=== PATIENT | female | born 1965 | race Caucasian/White ===

== ENCOUNTER 2016-11-28 11:31 | Emergency (ER) | payer OTHER ==
[2016-11-28] MEDS ORDERED: Albuterol/Ipratropium NEB.SOL* Albuterol 2.5 MG/Ipratropium 0.5 MG 3 ML INH ONE ×2 (12:03→13:06)
--- NOTE | 2016-11-28 12:59 | RAD ---
INDICATION: 3 days of severe shortness of breath and cough COMPARISON: Most recent comparison chest x-rays dated September 05, 2016 TECHNIQUE: PA and lateral views of the chest were obtained. FINDINGS: The heart and mediastinum are normal in size and contour. The lungs are grossly clear. There is no evidence of large pleural effusion. Visualized bones are normal for the patient's age. There is no radiographic evidence of free air beneath the diaphragm IMPRESSION: No radiographic evidence of acute cardiopulmonary disease.
[2016-11-28] MEDS ORDERED: methylPREDNISolone 125 MG* 2 ML VIAL IM ONE (13:07)
--- NOTE | 2016-11-28 14:10 | UC ---
Jayshree Pablo Salem, scribed for Gabriella Lopez MD on 11/28/16 at 1206 . Respiratory Complaint HPI - HPI Summary HPI Summary: Patient is a 51 y/o F who presents to the with a cough (nonproductive) and SOB since the past couple of days. Her reports wheezing and vomiting, but denies fever. She states she has been using a nebulizer (3 times yesterday, last one more than 12 hours ago) and cough medication at home with little to no alleviation. She reports she had bronchitis two years ago and has a chronic cough, but the cough is not typically this bad. Pt states that she had asthma as a child. Pt is also a heavy smoker, with approximately 25 pack year history. states that pt is mildly active at home, but it's limited by her fibromyalgia. Patients medication reviewed this visit. - History of Current Complaint Chief Complaint: UCRespiratory Stated Complaint: COUGH, SINUS, TROUBLE BREATHING Hx Obtained From: Patient, Family/Lending Manager - . Hx Last Menstrual Period: "NEVER HAD ONE" Onset/Duration: Gradual Onset, Lasting Days, Still Present Timing: Intermittent Episodes Severity Initially: Moderate Severity Currently: Moderate Character: Cough: Nonproductive Aggravating Factors: Recumbent Position Alleviating Factors: OTC Meds - Cough med and nebulizer., Upright Position Associated Signs And Symptoms: Positive: Dyspnea, Wheezing - Allergies/Home Medications Allergies/Adverse Reactions: Allergies Allergy/AdvReac Type Severity Reaction Status Date / Time Lamotrigine [From Lamictal] Allergy Intermediate Rash Verified 01/02/16 18:49 PMH/Surg Hx/FS Hx/Imm Hx - Additional Past Medical History Additional PMH: fibromyalgia Endocrine History: Diabetes Respiratory History: Bronchitis Other History Of: Negative For: Anticoagulant Therapy - Surgical History Surgical History: Yes Surgery Procedure, Year, and Place: RIGHT KNEE SURGERY, TOTAL RIGHT KNEE SURGERY 2009 W/ REVISION IN 2011,CYST REMOVED FROM RT WRIST, RT BREAST BIOPSY. TUBES IN EARS 2014 - Family History Known Family History: Positive: Diabetes, Respiratory Disease - Social History Occupation: Disabled Lives: With Family Alcohol Use: Rare Substance Use Type: None Smoking Status (MU): Heavy Every Day Tobacco Smoker Type: Cigarettes Amount Used/How Often: 3/4 PPD Length of Time of Smoking/Using Tobacco: 20+ years Household Exposure Type: Cigarettes - Immunization History Most Recent Influenza Vaccination: n/a Most Recent Tetanus Shot: >10 yrs Review of Systems Constitutional: Other - feels unwell, sweating although no fever. Respiratory: Shortness Of Breath, Cough - Nonproductive., Other - Wheezing. Gastrointestinal: Vomiting Musculoskeletal: Other: - Fibromyalgia. Has chronic pain in knees. All Other Systems Reviewed And Are Negative: Yes Physical Exam Triage Information Reviewed: Yes Appearance: Ill-Appearing Vital Signs: Initial Vital Signs Temp 98.6 F 11/28/16 11:40 Pulse 111 11/28/16 11:40 Resp 20 11/28/16 11:40 BP 157/93 11/28/16 11:40 Pulse Ox 96 11/28/16 11:40 Elevated BP noted. Vital Signs Reviewed: Yes Eyes: Positive: Conjunctiva Inflamed - mild injection ENT: Positive: Pharynx normal, TMs normal Neck: Positive: Supple, Nontender, No Lymphadenopathy Respiratory: Positive: Decreased breath sounds - to both bases, Wheezing - prolonged expiratory phase with wheeze. Cardiovascular: Positive: RRR, No Murmur Abdomen Description: Positive: Nontender, Soft Neurological: Positive: Alert, Muscle Tone Normal Skin Exam: Other - flushed, sweating. UC Diagnostic Evaluation - Laboratory O2 Sat by Pulse Oximetry: 96 - Radiology Radiology Interpretation Completed By: Radiologist - CXR IMPRESSION: No radiographic evidence of acute cardiopulmonary disease. - EKG Cardiac Rate: NL - NSR @ [address] changes in lateral leads, no acute changes. Re-Evaluation - Re-Evaluation First Eval Re-Evaluation Time: 13:01 Comment: Informed pt of nml CXR. Still prolonged expiration and wheezing. Will give pt a second DuoNeb. Second Eval Re-Evaluation Time: 13:50 Third Eval Re-Evaluation Time: 14:05 Change: Improved Comment: Improved air entry and less wheezing. Pt will be DCd. Respiratory Course/Dx - Course Course Of Treatment: steroids and bronchodilators for acute bronchospasm. - Differential Dx/Diagnosis Differential Diagnosis/HQI/PQRI: Asthma, Bronchitis, Exacerbation Of COPD, Lower Resp Infection Provider Diagnoses: bronchospasm, possible chronic obstructive lung disease. Discharge - Discharge Plan Condition: Stable Disposition: HOME Prescriptions: Albuterol/Ipratropium NEB.WENDIE* [Duoneb (Albuterol 2.5 MG/Ipratropium 0.5 MG)] 1 neb INH Q4H PRN #60 neb.soln PRN Reason: Wheezing Benzonatate CAP* [Tessalon 100 MG CAP*] 100 mg PO TID PRN #30 cap PRN Reason: Cough predniSONE TAB* [Deltasone TAB*] 6 tab PO DAILY #43 tab Patient Education Materials: How to Use a Nebulizer (ED), Bronchospasm (ED) Forms: *Work Release Referrals: Quoc Kellogg MD [Primary Care Provider] - Additional Instructions: Your blood pressure was elevated today (157/93). Please, follow up with your primary care provider within the next few weeks. It is likely a viral illness that is causing your wheezing. You have had a steroid injection here. TOMORROW morning, begin taking the oral prednisone with food, tapering over 2 weeks. Do not stop this medication abruptly. The tessalon perles will suppress the cough. Use the nebulizer as needed to relieve the wheezing in your lungs, but use it at least 2 more times today, and 4 times tomorrow. If you are feeling better on Friday, you can decrease the use. It could cause some stomach upset, so it is helpful to take it with food. It is important that you stop smoking, and follow up with Dr. Kellogg next Friday or Friday to arrange further assessment of your lungs. The documentation as recorded by the Jayshree dhaliwal Salem accurately reflects the service I personally performed and the decisions made by me, Gabriella Lopez MD.
[2016-11-28 14:11] VITALS: BP 159/95
== END 2016-11-28 14:20 | disposition home or self-care (01) ==
LOC: UCEAST 11:31
DX: J98.01 Acute bronchospasm (principal); Z72.0 Tobacco use; M79.7 Fibromyalgia; E11.9 Type 2 diabetes mellitus without complications; R06.2 Wheezing; Z87.09 Personal history of other diseases of the respiratory system; R06.02 Shortness of breath
CPT/HCPCS: 71020; 93005; 96372; 99213; A9270-GY; G0463; J2930

== ENCOUNTER 2017-07-08 20:37 | Emergency (ER) | payer OTHER ==
--- OUTSIDE RECORDS SUMMARY | 2017-07-08 20:44 | XMS REPORT ---
:1965 External Reference #:[id number] Author Organization [employer] Address [address] [place] [address] Phone [phone] Care Team Providers Name Role Phone Quoc Kellogg MD Care Team Information Accounting Clerks Supervisor Unavailable Quoc Kellogg MD Primary Care Physician Unavailable Payers Type Date Identification Numbers Payment Provider Subscriber Commercial Policy Number: [id number] Niki Krishnamurthy [address] [place] [address] Problems Description No Information Family History Date Family Member(s) Problem(s) Comments Father Esophagus Cancer Father Bladder Cancer Father Prostate Cancer Father Hearing Loss Father Diabetes Mother Cancer, Head And Neck Mother Diabetes Mother Hypertension Mother Heart Disease Social History Type Date Description Comments Occupation [employer] Cigarette Use PT Smokes 3/4 Pack Per Day ETOH Use Rare Use Of Alcohol Recreational Drug Use Never Used Drugs Allergies, Adverse Reactions, Alerts Date Description Reaction Status Severity Comments 03/22/2014 Lamictal active Medications Medication Date Status Form Strength Qnty SIG Indications Ordering Provider Ambien / Active Tablets 10mg 3tabs 1 by Unknown 0000 mouth every night at bedtime Cymbalta / Active Caps DR Part 60mg 1 every Unknown 0000 day Hydrocodone / Active Unknown 0000 Ciprodex 04/28/ Hx Suspension 0.3-0.1% 1unit 5 drops Alfonzo 2013 - s right ear Wiliam, 04/16/ twice a M.D. 2017 day Tramadol 04/25/ Hx Tablets 37.5-325mg 10tab 1-2 tabs Gary Mejía/Lenka 2013 - s every 8 Wiliam, cetaminophen 18/ hours as M.D. 2016 needed pain Amoxicillin 04/25/ Hx Tablets 875mg 20tab 1 by Alfonzo 2013 - mouth Wiliam, 04/16/ twice a M.D. 2017 day for 10 days Dexamethasone 03/22/ Hx Tablets 4mg 5tabs one tab Mejía, 2013 - daily for Wiliam, days M.D. 2013 Fluticasone 03/22/ Hx Suspension 50mcg/Act 3unit 2 sprays Mejía, Propionate 2014 - s both Wiliam, 04/16/ nostrils M.D. 2016 every day Vital Signs Date Vital Result Comment 06/17/2017 Weight 160.12 lb Height 65.75 inches 5'5.75" BMI (Body Mass Index) 26.0 kg/m2 BP Systolic 151 mmHg BP Diastolic 92 mmHg Heart Rate 97 /min O2 % BldC Oximetry 84 % Body Temperature 97.9 F Pain Level 0 04/16/2017 Weight 159.00 lb Height 65.75 inches 5'5.75" BMI (Body Mass Index) 25.9 kg/m2 BP Systolic 159 mmHg BP Diastolic 95 mmHg Heart Rate 100 /min O2 % BldC Oximetry 96 % Body Temperature 98.3 F Pain Level 0 04/28/2014 Body Temperature 98.2 F 04/25/2014 Weight 158.00 lb Height 65.75 inches 5'5.75" BMI (Body Mass Index) 25.7 kg/m2 BP Systolic 126 mmHg BP Diastolic 88 mmHg Heart Rate 91 /min O2 % BldC Oximetry 96 % Body Temperature 98.9 F Pain Level 7 04/01/2014 Weight 159.00 lb Height 65.75 inches 5'5.75" BMI (Body Mass Index) 25.9 kg/m2 BP Systolic 140 mmHg BP Diastolic 82 mmHg Heart Rate 77 /min O2 % BldC Oximetry 95 % Body Temperature 98.4 F 03/22/2014 Weight 159.00 lb Height 65.75 inches 5'5.75" BMI (Body Mass Index) 25.9 kg/m2 BP Systolic 134 mmHg BP Diastolic 90 mmHg Heart Rate 70 /min O2 % BldC Oximetry 97 % Body Temperature 98.4 F Results Description No Information Procedures Date CPT Code Description Status 05/06/2017 89670 Tympanostomy, Gen. Anesth. Completed 05/06/2017 30290 Anesthesia, Tympanotomy Completed 04/16/2017 03557 Tympanometry Completed 04/16/2017 10467 Audiometry, Comprehensive Completed 04/21/2014 27900 Tympanostomy, Gen. Anesth. Completed 04/12/2014 43161 Tympanometry Completed 04/12/2014 33506 Audiometry, Comprehensive Completed 03/22/2014 99607 Nasal Endoscopy, Diag. Completed Encounters Type Date Location Provider CPT E/M Dx Office Visit 04/16/2017 9:45a Main Office Wiliam Mejía M.D. 64832 H69.83 Office Visit 04/12/2014 1:00p Main Office Wiliam Mejía M.D. 19166 389.05 381.81 388.70 Office Visit 04/01/2014 3:45p Main Office Wiliam Mejía M.D. 10012 388.70 381.81 383.89 Office Visit 03/22/2014 3:15p Main Office Wiliam Mejía M.D. 94619 388.70 780.4 388.30 381.81 472.0 478.19 Plan of Care No Information Available
[2017-07-08 20:47] VITALS: BP 173/89
--- NOTE | 2017-07-08 20:53 | UC ---
Headache HPI - HPI Summary HPI Summary: Pt presents with headache and nosebleeds. She tells me that about 4 days ago she developed a "bad headache" and "trickling" blood from her nose. These episodes were worse at times throughout the day, but her headache is constant. Since yesterday she tells me her headache has gotten much worse and her nosebleeds are more severe. She does feel generalized weak and dizzy. Denies head trauma, but she did bump her head on her freezer door twice about 3 days ago - after the headaches began. Has been taking her prescribed narcotic pain mediation for the pain, which she says makes the pain worse. She also mentions that about 2 weeks ago she developed a FB sensation in her throat and began having difficulty swallowing. This is getting progressively worse. She denies fever, chills, recent illness, SOB, chest pain, abdominal pain, n/v/d /c, ataxia, or changes in her vision. - History Of Current Complaint Hx Obtained From: Patient Hx Last Menstrual Period: "NEVER HAD ONE" Onset/Duration: Gradual Onset Onset Of Symptoms: Gradual Initially Headache Was: Initial Pain Scale(0-10)= - 5, Moderate Currently Pain Is: Current Pain Scale(0-10)= - 9, Severe Pain Intensity: 9 Pain Scale Used: 0-10 Numeric Timing: Constant Character: Dull, Throbbing, Pressure Location of Headache: Diffuse <Sammy Mitchell - Last Filed: 07/08/17 21:46> <Neena Lemons - Last Filed: 07/09/17 07:14> - History Of Current Complaint Chief Complaint: UCHeadache Stated Complaint: HEADACHE Time Seen by Provider: 07/08/17 20:46 - Allergies/Home Medications Allergies/Adverse Reactions: Allergies Allergy/AdvReac Type Severity Reaction Status Date / Time Lamotrigine [From Lamictal] Allergy Intermediate Rash Verified 07/08/17 20:47 PMH/Surg Hx/FS Hx/Imm Hx Endocrine History: Diabetes, Dyslipidemia Respiratory History: COPD Psychological History: Anxiety Other History Of: Negative For: Anticoagulant Therapy - Surgical History Surgical History: Yes Surgery Procedure, Year, and Place: RIGHT KNEE SURGERY, TOTAL RIGHT KNEE SURGERY 2009 W/ REVISION IN 2011,CYST REMOVED FROM RT WRIST, RT BREAST BIOPSY. TUBES IN EARS 2014 - Family History Known Family History: Positive: None, Diabetes, Respiratory Disease - Social History Alcohol Use: Rare Substance Use Type: None Smoking Status (MU): Heavy Every Day Tobacco Smoker Type: Cigarettes Amount Used/How Often: 3/4 PPD Length of Time of Smoking/Using Tobacco: 20+ years Household Exposure Type: Cigarettes - Immunization History Most Recent Influenza Vaccination: n/a Most Recent Tetanus Shot: >10 yrs <Sammy Mitchell - Last Filed: 07/08/17 21:46> Review of Systems Constitutional: Other - Weakness Skin: Negative Eyes: Negative ENT: Epistaxis, Other - Dysphagia Respiratory: Negative Cardiovascular: Negative Gastrointestinal: Negative Musculoskeletal: Negative Neurological: Headache Psychological: Negative All Other Systems Reviewed And Are Negative: Yes <ChuypierreSammy - Last Filed: 07/08/17 21:46> Physical Exam Triage Information Reviewed: Yes Appearance: Ill-Appearing Vital Signs: Initial Vital Signs Temp 97.5 F 07/08/17 20:45 Pulse 92 07/08/17 20:45 Resp 18 07/08/17 20:45 BP 173/89 07/08/17 20:45 Pulse Ox 99 07/08/17 20:45 Vital Signs Reviewed: Yes Eyes: Positive: Conjunctiva Clear, Other: - EOMI. PERRLA.. Negative: Conjunctiva Inflamed, Discharge ENT: Positive: Hearing grossly normal, Pharynx normal, TMs normal, Uvula midline , Other - Dried blood in right nasal passage.. Negative: Pharyngeal erythema, TM bulging, TM dull, TM red, Tonsillar swelling, Tonsillar exudate, Muffled voice, Hoarse voice Neck: Positive: Supple, No Lymphadenopathy, Other: - FROM. TTP over cervical spine all levels. Respiratory: Positive: Chest non-tender, Lungs clear, No respiratory distress, No accessory muscle use Cardiovascular: Positive: RRR, Pulses Normal, Brisk Capillary Refill Musculoskeletal: Positive: No Edema, Strength Limited @ - Left UEs and LEs 4/5 compared to right 5/5 Neurological: Positive: Alert, Other: - A&Ox3. 3 word recall, remote, recent memory, ability to follow 2-step directions, and attention intact. CN II XII grossly intact. [id number] are intact, but sluggish and made her dizzy. Gait is shuffling and appears unsteady. Sensory: sensations feel dull on left UE and LE compared to right. Normal speech. No facial drooping. Psychological: Positive: Age Appropriate Behavior Skin: Positive: rashes - Upper chest diffuse maculopapular erythematous rash. No bleeding, drainage, or open wounds. <Sammy Mitchell - Last Filed: 07/08/17 21:46> Vital Signs: Initial Vital Signs Temp 97.5 F 07/08/17 20:45 Pulse 92 07/08/17 20:45 Resp 18 07/08/17 20:45 BP 173/89 07/08/17 20:45 Pulse Ox 99 07/08/17 20:45 <Neena Lemons - Last Filed: 07/09/17 07:14> Headache Course/Dx - Course Course Of Treatment: POC BG 175. NIH stroke scale 4. I strongly advised the patient to be transferred to [facility] via ambulance for these stroke symptoms. She was agreeable to this. An ambulance was called and she was transferred in stable condition. - Differential Dx/Diagnosis Differential Diagnosis/HQI/PQRI: CVA, Subdural Hematoma, Subarachnoid Hemorrhage Provider Diagnoses: Weakness. Headache. Epistaxis <Sammy Mitchell - Last Filed: 07/08/17 21:46> Discharge <Sammy Mitchell - Last Filed: 07/08/17 21:46> <Neena Lemons - Last Filed: 07/09/17 07:14> - Discharge Plan Condition: Stable Disposition: TRANS HIGHER LVL OF CARE FAC Referrals: Quoc Kellogg MD [Primary Care Provider] - Additional Instructions: Pt to [facility] ED via ambulance Attestation Statement User Type: Provider - I was available for consult. This patient was seen by the XIAO. The patient was not presented to, seen by, or examined by me. -Neha <Neena Lemons - Last Filed: 07/09/17 07:14>
== END 2017-07-08 21:41 | disposition short-term general hospital (02) ==
LOC: UCEAST 20:37
DX: R53.1 Weakness (principal); R51 Headache; R04.0 Epistaxis; Z72.0 Tobacco use
CPT/HCPCS: 99213; G0463

== ENCOUNTER 2017-07-08 21:37 | Emergency (ER) | payer OTHER ==
[2017-07-08] MEDS ORDERED: Ondansetron INJ* 2 MG/ML VIAL IV ONE (22:04)
[2017-07-08 22:33] LABS: ABS Basophils 0 10^3/ul (0-0.2); ABS Eosinophils 0.2 10^3/ul (0-0.6); ABS Lymphocytes 3.3 10^3/ul (1.0-4.8); ABS Monocytes 0.6 10^3/ul (0-0.8); ABS Neutrophils 4.5 10^3/ul (1.5-7.7); ABS Nucleated RBC 0 10^3/ul; Eosinophil % 2.8 % (0-6); Hematocrit 42 % (35-47); Hemoglobin 14.5 g/dl (12.0-16.0); Lymphocyte % 38.4 % (25-47); Mean Corpuscular HGB Conc 35 g/dl (31-36); Mean Corpuscular Hemoglobin 30 pg (27-31); Mean Corpuscular Volume 88 fL (80-97); Mean Platelet Volume 10 um3 (7.4-10.4); Nucleated Red Blood Cells % 0; Platelet Count 157 10^3/ul (150-450); Red Blood Count 4.78 10^6/ul (4.0-5.4); Red Cell Distribution Width 13 % (10.5-15); White Blood Count 8.7 10^3/ul (3.5-10.8)
[2017-07-08 23:17] LABS: EGFR Non-African American 111.4 (>60)
[2017-07-08] MEDS ORDERED: Ketorolac INJ* 60 MG/2 ML VIAL IM ONE (23:47)
[2017-07-08] MEDS ORDERED: Potassium Chloride LIQUID* 20 MEQ PACKET PO ONE (23:47)
[2017-07-09 00:48] VITALS: BP 175/93
--- NOTE | 2017-07-09 07:29 | RAD ---
INDICATION: Severe headache, meningeal signs. COMPARISON: There are no prior studies available for comparison. TECHNIQUE: Contiguous axial sections of the brain were obtained from the skull base to the vertex without contrast. FINDINGS: The ventricles, cisterns and sulci are within normal limits. No significant focal abnormality or mass effect is seen. There is no evidence for hemorrhage. 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 No significant focal osseous abnormality is seen. The visualized portion of the paranasal sinuses and mastoid air cells appear clear. IMPRESSION: NO EVIDENCE FOR ACUTE INTRACRANIAL ABNORMALITY.
--- NOTE | 2017-07-09 20:39 | ED ---
Katia Pablo Emily, scribed for Alok Marshall MD on 07/08/17 at 2201 . Headache - HPI Summary HPI Summary: This patient is a 52 year old F BIBA to [facility] with a chief complaint of frontal headache with epistaxis that began 5 days ago. Symptoms worsened 3 days ago. Pt describes this headache as the worst in her life. Pt describes the headache as radiating to the back of her head. The patient rates the pain 9/10 in severity. Symptoms aggravated by bright lights. Symptoms alleviated by nothing. Patient reports feeling something in her throat, neck pain, and nausea. Pt denies fever and chills. Medications reviewed. - History Of Current Complaint Chief Complaint: EDHeadache Stated Complaint: HEADACHE Hx Obtained From: Patient, Family/Coal Yard Supervisor Hx Last Menstrual Period: "NEVER HAD ONE" Onset/Duration: Sudden Onset, Started days ago, Still Present Initially Headache Was: "Worst Headache Ever" Currently Pain Is: Current Pain Scale(0-10)= - 9, Severe Timing: Constant, Days Location of Headache: Frontal Aggravating Factor: Bright Lights Allevating Factors: Nothing Associated Signs And Symptoms: Nausea, Other (Noted In Comments) - Pt reports "feeling something in her throat" - Allergies/Home Medications Allergies/Adverse Reactions: Allergies Allergy/AdvReac Type Severity Reaction Status Date / Time Lamotrigine [From Lamictal] Allergy Intermediate Rash Verified 07/08/17 20:47 PMH/Surg Hx/FS Hx/Imm Hx Previously Healthy: No Endocrine/Hematology History: Reports: Hx Diabetes Denies: Hx Anticoagulant Therapy, Hx Thyroid Disease, Hx Anemia Cardiovascular History: Denies: Hx Angina, Hx Angioplasty, Hx Cardiac Arrest, Hx Congestive Heart Failure, Hx Deep Vein Thrombosis, Hx Hypercholesterolemia, Hx Hypertension, Hx Pacemaker/ICD, Hx Syncope Respiratory History: Reports: Hx Asthma Denies: Hx Chronic Bronchitis, Hx Chronic Obstructive Pulmonary Disease (COPD ), Hx Pneumonia, Hx Seasonal Allergies, Hx Sleep Apnea GI History: Denies: Hx Cirrhosis, Hx Crohn's Disease, Hx Diverticulosis, Hx Gall Bladder Disease, Hx Gastroesophageal Reflux Disease, Hx Ulcer History: Denies: Hx Kidney Infection, Hx Kidney Stones, Hx Renal Disease Musculoskeletal History: Reports: Hx Bursitis - R Knee Denies: Hx Rheumatoid Arthritis, Hx Osteoporosis Sensory History: Denies: Hx Contacts or Glasses, Hx Hearing Aid Opthamlomology History: Denies: Hx Contacts or Glasses Neurological History: Denies: Hx Dementia, Hx Headaches, Hx Migraine, Hx Seizures Psychiatric History: Reports: Hx Depression Denies: Hx Eating Disorder, Hx Panic Disorder, Hx Suicide Attempt, Hx Substance Abuse - Cancer History Hx Chemotherapy: No Hx Radiation Therapy: No - Surgical History Surgery Procedure, Year, and Place: RIGHT KNEE SURGERY, TOTAL RIGHT KNEE SURGERY 2009 W/ REVISION IN 2011,CYST REMOVED FROM RT WRIST, RT BREAST BIOPSY. TUBES IN EARS 2014 Hx Anesthesia Reactions: No - Immunization History Date of Tetanus Vaccine: unk Infectious Disease History: Yes Infectious Disease History: Reports: Hx Hepatitis - Hep B 20 yrs ago Denies: Hx Human Immunodeficiency Virus (HIV), Hx of Known/Suspected MRSA, Hx Shingles, Hx Tuberculosis, History Other Infectious Disease, Traveled Outside the [place] in Last 30 Days - Family History Known Family History: Positive: None, Diabetes, Respiratory Disease - Social History Occupation: Disabled Lives: With Family Alcohol Use: Rare Substance Use Type: Reports: None Hx Tobacco Use: Yes Smoking Status (MU): Heavy Every Day Tobacco Smoker Type: Cigarettes Amount Used/How Often: 3/4 PPD Length of Time of Smoking/Using Tobacco: 20+ years Review of Systems Negative: Fever, Chills Positive: Epistaxis, Other - Positive "feeling something in her throat" Positive: Nausea Positive: Other - Positive neck pain Positive: Headache All Other Systems Reviewed And Are Negative: Yes Physical Exam - Summary Physical Exam Summary: Appearance: Well-appearing, Well-nourished Skin: Warm, Dry, No rash Eyes: Normal, PERRL, EOMI, sclera anicteric ENT: Normal Neck: Nml Respiratory: Clear to auscultation Cardiovascular: S1, S2, no murmur, no rub, no gallop Abdomen: Soft, nontender, no organomegaly Bowel sounds: Present Musculoskeletal: Normal, Strength/ROM Intact, no edema, pulses symmetrical Neurological: Normal, A&Ox3, cranial nerves II-XII WNL, follows commands, gait not tested, sensation intact to pin and light touch, sleepy but arousable Psychiatric: affect normal, behavior appropriate, dressed appropriately, judgment intact Triage Information Reviewed: Yes Vital Signs On Initial Exam: Initial Vitals Temp Pulse Resp BP Pulse Ox 99.4 F 81 20 167/76 95 07/08/17 21:42 07/08/17 21:42 07/08/17 21:42 07/08/17 21:42 07/08/17 21:42 Vital Signs Reviewed: Yes - Berkley Coma Scale Coma Scale Total: 15 Diagnostics - Vital Signs Vital Signs Temp Pulse Resp BP Pulse Ox 07/08/17 21:42 99.4 F 81 20 167/76 95 - Laboratory Result Diagrams: 07/08/17 22:25 07/08/17 22:25 Lab Statement: Any lab studies that have been ordered have been reviewed, and results considered in the medical decision making process. - CT Head CT CT Interpretation Completed By: Radiologist - CT head reveals, per radiologist, there is no evidence of acute infarction. There is no hemorrhage, no mass lesion is seen. There is no skull fracture. Visualized portions of the paranasal sinuses are essentially clear. Mastoid air cells are normally pneumatized. ED physician has reviewed this radiology report. Headache Course/Dx - Course Assessment/Plan: This patient is a 52 year old F BIBA to [facility] with a chief complaint of frontal headache with epistaxis that began 5 days ago. Symptoms worsened 3 days ago. Pt describes this headache as the worst in her life. Pt describes the headache as radiating to the back of her head. Physical Exam Findings. Sleepy but arousable. Positive Bruzinkis sign. Positive Kernig sign. CT head reveals, per radiologist, there is no evidence of acute infarction. There is no hemorrhage, no mass lesion is seen. There is no skull fracture. Visualized portions of the paranasal sinuses are essentially clear. Mastoid air cells are normally pneumatized. Bloodwork obtained. In the ED course the patient was given Zofran. Patient will be discharged with follow up from PCP. The patient is agreeable with this plan. - Diagnoses Provider Diagnoses: Epistaxis, Headache Discharge - Discharge Plan Condition: Good Disposition: HOME Patient Education Materials: Nosebleed (ED) Referrals: Quoc Kellogg MD [Primary Care Provider] - The documentation as recorded by the Katia dhaliwal Emily accurately reflects the service I personally performed and the decisions made by me, Alok Marshall MD.
== END 2017-07-09 00:49 | disposition home or self-care (01) ==
LOC: ED 21:37
DX: R04.0 Epistaxis (principal); R11.0 Nausea; R51 Headache; M54.2 Cervicalgia
CPT/HCPCS: 36415; 70450; 80053; 85025; 96372; 96374; 99283; A9270-GY; J1885; J2405

== ENCOUNTER 2018-01-07 21:11 | Emergency (ER) | payer OTHER ==
[2018-01-07 21:21] VITALS: BP 148/85
--- NOTE | 2018-01-07 21:53 | UC ---
Headache HPI - HPI Summary HPI Summary: 3-4 DAYS OF SHARP, STABBING FRONTAL HEADACHE NOT GETTING ANY BETTER. ALSO IS COMPLAINING OF BILATERAL POSTERIOR NECK PAIN, NAUSEA, BLURRY VISION AND FEVER. TMAX 102.2 THIS MORNING. LAST DOSE TYLENOL 2 HOURS AGO. HAS HAD MIGRAINE HEADACHES IN THE PAST BUT STATES THIS DOES NOT FEEL THE SAME. HAD SOME FOOT AND LEG CRAMPING LAST NIGHT. - History Of Current Complaint Chief Complaint: UCHeadache Stated Complaint: HEADACHE Time Seen by Provider: 01/07/18 21:32 Hx Obtained From: Patient, Family/Structural Analyst - Hx Last Menstrual Period: "NEVER HAD ONE" Onset/Duration: Gradual Onset, Lasting Days, Still Present Onset Of Symptoms: Gradual Initially Headache Was: Moderate Currently Pain Is: Moderate Pain Intensity: 8 Pain Scale Used: 0-10 Numeric Timing: Constant, Days Character: Sharp Location of Headache: Frontal Aggravating Factor(s): Nothing Allevating Factor(s): Nothing Associated Signs And Symptoms: Positive: Nausea, Fever, Neck Pain, Visual Changes. Negative: Dizziness, Seizure, Vomiting - Allergies/Home Medications Allergies/Adverse Reactions: Allergies Allergy/AdvReac Type Severity Reaction Status Date / Time lamotrigine [From Lamictal] Allergy Rash Verified 01/07/18 21:29 Home Medications: Home Medications Canagliflozin (NF) [Invokana (NF)] 100 mg PO DAILY 01/07/18 [History Confirmed 01/07/18] Ibuprofen [Goodsense Ibuprofen] 400 mg PO Q6HR PRN 01/07/18 [History Confirmed 01/07/18] Lisinopril [Lisinopril 2.5 MG-] 2.5 mg PO DAILY 01/07/18 [History Confirmed 05/17] PMH/Surg Hx/FS Hx/Imm Hx Endocrine History: Diabetes Cardiovascular History: Hypertension Respiratory History: Asthma Neurological History: Migraine Other History Of: Negative For: Anticoagulant Therapy - Surgical History Surgical History: Yes Surgery Procedure, Year, and Place: RIGHT KNEE SURGERY, TOTAL RIGHT KNEE SURGERY 2009 W/ REVISION IN 2011,CYST REMOVED FROM RT WRIST, RT BREAST BIOPSY. TUBES IN EARS 2014 - Family History Known Family History: Positive: Hypertension, Diabetes, Respiratory Disease - Social History Alcohol Use: None Substance Use Type: None Smoking Status (MU): Heavy Every Day Tobacco Smoker Type: Cigarettes Amount Used/How Often: 1 ppd Length of Time of Smoking/Using Tobacco: 20+ years Household Exposure Type: Cigarettes - Immunization History Most Recent Influenza Vaccination: n/a Most Recent Tetanus Shot: >10 yrs Review of Systems Constitutional: Fever, Chills, Fatigue Eyes: Blurred Vision Respiratory: Negative Cardiovascular: Negative Gastrointestinal: Nausea Musculoskeletal: Myalgia Neurological: Headache All Other Systems Reviewed And Are Negative: Yes Physical Exam Triage Information Reviewed: Yes Appearance: Well-Nourished, Pain Distress - MODERATE Vital Signs: Initial Vital Signs Temp 99.8 F 01/07/18 21:15 Pulse 104 01/07/18 21:15 Resp 18 01/07/18 21:15 BP 148/85 01/07/18 21:15 Pulse Ox 100 01/07/18 21:15 Vital Signs Reviewed: Yes Eyes: Positive: Conjunctiva Clear, Other: - PERRL, EOMI ENT: Positive: Hearing grossly normal, Pharynx normal, TMs normal Neck: Positive: Supple, Nontender, No Lymphadenopathy Respiratory Exam: Normal Cardiovascular: Positive: Tachycardia Abdomen Description: Positive: Soft Musculoskeletal: Positive: No Edema, ROM Limited @ - NECK, Other: - TTP BILAT TRAPEZIUS MUSCLES Neurological: Positive: Alert, Other: - NO SIGNS OF MENINGISMUS Psychological: Positive: Age Appropriate Behavior Skin: Negative: rashes Headache Course/Dx - Course Course Of Treatment: TO [facility] [place] [facility] - Differential Dx/Diagnosis Provider Diagnoses: HEADACHE, FEVER - Physician Notifications Discussed Patient Care With: Barbara Hopkins - TO [facility] Time Discussed With Above Provider: 21:50 Instructed by Provider To: MD Will See In ED Discharge - Sign-Out/Discharge Documenting (check all that apply): Patient Departure - Discharge Plan Condition: Stable Disposition: TRANS HIGHER LVL OF CARE FAC Referrals: Quoc Kellogg MD [Primary Care Provider] - - Billing Disposition and Condition Condition: STABLE Disposition: Trans Higher Lvl of Care Fac
[2018-01-07] MEDS ORDERED: Ondansetron ODT TAB* 4 MG PO ONE (22:00)
[2018-01-07] MEDS ORDERED: NS 0.9% 1000 ML* 1,000 ML IV SCH (22:00)
[2018-01-07] MEDS ORDERED: Ondansetron INJ* 2 MG/ML VIAL ONE (22:01)
[2018-01-07] MEDS ORDERED: Ondansetron INJ* 2 MG/ML VIAL IV ONE (22:02)
== END 2018-01-07 22:08 | disposition short-term general hospital (02) ==
LOC: UCEAST 21:11
DX: R51 Headache (principal); M54.2 Cervicalgia; R50.9 Fever, unspecified; H53.8 Other visual disturbances; I10 Essential (primary) hypertension; E11.9 Type 2 diabetes mellitus without complications; F17.210 Nicotine dependence, cigarettes, uncomplicated; J45.909 Unspecified asthma, uncomplicated; Z88.8 Allergy status to other drugs, medicaments and biological substances; Z79.899 Other long term (current) drug therapy
CPT/HCPCS: 96360; 96374; 99213; G0463; J2405

== ENCOUNTER 2018-01-07 22:27 | Emergency (ER) | payer OTHER ==
[2018-01-07] MEDS ORDERED: Metoclopramide IV* 5 MG/ML 2 ML VIAL IV SLOW PU ONE (22:47)
[2018-01-07] MEDS ORDERED: Acetaminophen TAB* 325 MG PO ONE (22:47)
[2018-01-07] MEDS ORDERED: Ketorolac INJ* 30 MG/ML 1 ML VIAL IV PUSH ONE (22:47)
[2018-01-07] MEDS ORDERED: diPHENhydraMINE IV* 50 MG/ML 1 ml VIAL (BENADRYL) IV ONE (22:48)
--- NOTE | 2018-01-07 22:52 | ED ---
Headache - HPI Summary HPI Summary: This patient is a 52 year old F BIBA from [facility] to ED with a chief complaint of a frontal AVITIA since 4 days ago. The patient has hx of migraine and says this does not feel like a migraine. Prior treatment includes hydrocodone sometime in last 4 days and 4x tylenol today (last dose at 1900). The patient rates the pain 9/10 in severity. Symptoms aggravated by nothing. Symptoms alleviated by nothing. Patient reports nausea, light sensitivity (baseline since she was little), fever (102 this morning), foot cramping (last night), and neck pain. Patient denies vomiting, body aches, and difficulty breathing. - History Of Current Complaint Chief Complaint: EDNeckComplaint Stated Complaint: HEADACHE, CC TRANSFER Time Seen by Provider: 01/07/18 22:39 Hx Obtained From: Patient Hx Last Menstrual Period: "NEVER HAD ONE" Onset/Duration: Sudden Onset, Started days ago - 4 days ago, Still Present Initially Headache Was: Initial Pain Scale(0-10)= - 9/10, Severe Currently Pain Is: Current Pain Scale(0-10)= - 9/10, Severe Timing: Constant, Days - 4 days Location of Headache: Frontal Aggravating Factor: Nothing Allevating Factors: Nothing Associated Signs And Symptoms: Other (Noted In Comments) - Patient reports nausea, light sensitivity (baseline since she was little), fever (102 this morning), foot cramping (last night), and neck pain. Patient denies vomiting, body aches, and difficulty breathing. - Allergies/Home Medications Allergies/Adverse Reactions: Allergies Allergy/AdvReac Type Severity Reaction Status Date / Time lamotrigine [From Lamictal] Allergy Rash Verified 01/07/18 21:29 PMH/Surg Hx/FS Hx/Imm Hx Endocrine/Hematology History: Reports: Hx Diabetes - Type 2 Denies: Hx Anticoagulant Therapy, Hx Thyroid Disease, Hx Anemia Cardiovascular History: Reports: Hx Hypertension Denies: Hx Angina, Hx Angioplasty, Hx Cardiac Arrest, Hx Congestive Heart Failure, Hx Deep Vein Thrombosis, Hx Hypercholesterolemia, Hx Pacemaker/ICD, Hx Syncope Respiratory History: Reports: Hx Asthma Denies: Hx Chronic Bronchitis, Hx Chronic Obstructive Pulmonary Disease (COPD ), Hx Pneumonia, Hx Seasonal Allergies, Hx Sleep Apnea GI History: Denies: Hx Cirrhosis, Hx Crohn's Disease, Hx Diverticulosis, Hx Gall Bladder Disease, Hx Gastroesophageal Reflux Disease, Hx Ulcer History: Denies: Hx Kidney Infection, Hx Kidney Stones, Hx Renal Disease Musculoskeletal History: Reports: Hx Bursitis - R Knee Denies: Hx Rheumatoid Arthritis, Hx Osteoporosis Sensory History: Denies: Hx Contacts or Glasses, Hx Hearing Aid Opthamlomology History: Denies: Hx Contacts or Glasses Neurological History: Denies: Hx Dementia, Hx Headaches, Hx Migraine, Hx Seizures Psychiatric History: Reports: Hx Depression Denies: Hx Eating Disorder, Hx Panic Disorder, Hx Suicide Attempt, Hx Substance Abuse - Cancer History Hx Chemotherapy: No Hx Radiation Therapy: No - Surgical History Surgery Procedure, Year, and Place: RIGHT KNEE SURGERY, TOTAL RIGHT KNEE SURGERY 2009 W/ REVISION IN 2011,CYST REMOVED FROM RT WRIST, RT BREAST BIOPSY. TUBES IN EARS 2014 Hx Anesthesia Reactions: No - Immunization History Date of Tetanus Vaccine: unk Infectious Disease History: No Infectious Disease History: Reports: Hx Hepatitis - Hep B 20 yrs ago Denies: Hx Human Immunodeficiency Virus (HIV), Hx of Known/Suspected MRSA, Hx Shingles, Hx Tuberculosis, History Other Infectious Disease, Traveled Outside the [place] in Last 30 Days - Family History Known Family History: Positive: Hypertension, Diabetes, Respiratory Disease - Social History Alcohol Use: None Substance Use Type: Reports: None Hx Tobacco Use: Yes Smoking Status (MU): Former Smoker Type: Cigarettes Amount Used/How Often: 1 ppd Length of Time of Smoking/Using Tobacco: 20+ years Review of Systems Positive: Fever - 102 this morning Positive: Other - light sensitivity (baseline since she was little) Positive: Other - neck pain Positive: Other - denies difficulty breathing Positive: Nausea. Negative: Vomiting Positive: Other - foot cramping last night; denies body aches All Other Systems Reviewed And Are Negative: Yes Physical Exam - Summary Physical Exam Summary: VITAL SIGNS: Reviewed. GENERAL: Patient is a well-developed and nourished FEMALE who is lying comfortable in the stretcher. Patient is not in any acute respiratory distress. HEAD AND FACE: No signs of trauma. No ecchymosis, hematomas or skull depressions. No sinus tenderness. EYES: PERRLA, EOMI x 2, No injected conjunctiva, no nystagmus. EARS: Hearing grossly intact. Bilateral tympanostomy. MOUTH: Oropharynx within normal limits. NECK: Supple, trachea is midline, no adenopathy, no JVD, no carotid bruit, no c- spine tenderness. Mild nuchal rigidity. CHEST: Symmetric, no tenderness at palpation LUNGS: Clear to auscultation bilaterally. No wheezing or crackles. CVS: Regular rate and rhythm, S1 and S2 present, no murmurs or gallops appreciated. ABDOMEN: Soft, non-tender. No signs of distention. No rebound no guarding, and no masses palpated. Bowel sounds are normal. EXTREMITIES: FROM in all major joints, no edema, no cyanosis or clubbing. NEURO: Alert and oriented x 3. No acute neurological deficits. Speech is normal and follows commands. SKIN: Dry and warm Triage Information Reviewed: Yes Vital Signs On Initial Exam: Initial Vitals Temp Pulse Resp BP Pulse Ox 97.9 F 83 18 122/71 92 01/07/18 22:33 01/07/18 22:33 01/07/18 22:33 01/07/18 22:33 01/07/18 22:33 Vital Signs Reviewed: Yes Diagnostics - Vital Signs Vital Signs Temp Pulse Resp BP Pulse Ox 01/07/18 22:33 97.9 F 83 18 122/71 92 - Laboratory Result Diagrams: 01/07/18 21:55 01/07/18 21:55 Lab Statement: Any lab studies that have been ordered have been reviewed, and results considered in the medical decision making process. - Radiology CXR Radiology Interpretation Completed By: ED Physician - CXR is negative for acute findings. Pending official report. Re-Evaluation - Re-Evaluation First Eval Re-Evaluation Time: 00:50 Comment: The patient is feeling better. Headache Course/Dx - Course Assessment/Plan: This patient is a 52 year old F BIBA from [facility] to ED with a chief complaint of a frontal AVITIA since 4 days ago. In the ED course, the patient was given Tylenol, Benadryl, Toradol, and Reglan. CXR is negative for acute findings. Pending official report. The patient does not have leukocytosis, no left shift, no bends. She has normal lactic acid. It is likely a viral process. Therefore the patient will be D/C home with dx of viral syndrome. The patient is agreeable with this plan. - Diagnoses Differential Diagnosis/HQI/PQRI: Viral Syndrome Provider Diagnoses: Viral syndrome Discharge - Sign-Out/Discharge Documenting (check all that apply): Patient Departure - Discharge Plan Condition: Stable Disposition: HOME Prescriptions: Cyclobenzaprine TAB* [Flexeril 10 MG TAB*] 10 mg PO TID PRN #20 tab PRN Reason: Spasms - Neck Ibuprofen TAB* [Motrin TAB* 600 MG] 600 mg PO Q6H PRN #30 tab PRN Reason: Fever/Pain Patient Education Materials: Viral Syndrome (ED) Referrals: Quoc Kellogg MD [Primary Care Provider] - (Follow up with your primary care physician in 1-2 days.) Additional Instructions: RETURN TO THE EMERGENCY DEPARTMENT FOR CHANGING OR WORSENING SYMPTOMS.
[2018-01-07 23:19] LABS: Hematocrit 42 % (35-47); Hemoglobin 14.8 g/dl (12.0-16.0); Mean Corpuscular HGB Conc 35 g/dl (31-36); Mean Corpuscular Hemoglobin 31 pg (27-31); Mean Corpuscular Volume 88 fL (80-97); Mean Platelet Volume 10.6 um3 (7.4-10.4); Platelet Count 167 10^3/ul (150-450); Red Blood Count 4.82 10^6/ul (4.00-5.40); Red Cell Distribution Width 13 % (10.5-15); White Blood Count 7.4 10^3/ul (3.5-10.8)
[2018-01-07 23:28] LABS: INR 0.92 (0.77-1.02)
[2018-01-07 23:40] LABS: EGFR Non-African American 86.4 (>60)
[2018-01-07] MEDS ORDERED: Potassium Chlor TAB* 20 MEQ TAB.ER PO ONE (23:51)
[2018-01-08 00:07] LABS: ABS Basophils 0 10^3/ul (0-0.2); ABS Eosinophils 0.2 10^3/ul (0-0.6); ABS Lymphocytes 2.1 10^3/ul (1.0-4.8); ABS Monocytes 0.8 10^3/ul (0-0.8); ABS Neutrophils 4.2 10^3/ul (1.5-7.7); ABS Nucleated RBC 0 10^3/ul; Eosinophil % 2.5 % (0-6); Lymphocyte % 28.5 % (25-47); Nucleated Red Blood Cells % 0
[2018-01-08 01:24] VITALS: BP 103/65
--- NOTE | 2018-01-08 07:39 | RAD ---
INDICATION: Fever. COMPARISON: Comparison is made with a prior study from November 28, 2016. TECHNIQUE: A portable view of the chest was obtained. FINDINGS: Cardiac and mediastinal contours appear to be within normal limits. The lungs are clear. No pleural effusion is seen. IMPRESSION: NO EVIDENCE FOR ACUTE DISEASE. R0
== END 2018-01-08 01:23 | disposition home or self-care (01) ==
LOC: ED 22:27
DX: B34.9 Viral infection, unspecified (principal); E11.9 Type 2 diabetes mellitus without complications; I10 Essential (primary) hypertension; J45.909 Unspecified asthma, uncomplicated; F32.9 Major depressive disorder, single episode, unspecified; Z86.19 Personal history of other infectious and parasitic diseases; Z82.49 Family history of ischemic heart disease and other diseases of the circulatory system; Z88.8 Allergy status to other drugs, medicaments and biological substances; Z83.3 Family history of diabetes mellitus; Z83.6 Family history of other diseases of the respiratory system; Z87.891 Personal history of nicotine dependence
CPT/HCPCS: 36415; 71045; 80053; 82550; 83605; 85025; 85610; 85730; 86140; 87040; 96374; 96375; 99284; A9270-GY; J1200; J1885; J2765

== ENCOUNTER 2018-05-26 11:14 | Inpatient (IN) | payer OTHER, MEDICARE ==
--- NOTE | 2018-05-15 17:26 | HP ---
AMENDED REPORT NOW INCLUDES COSIGNER DESIGNATION HISTORY AND PHYSICAL: DATE OF ADMISSION/SURGERY: 05/26/18. DATE OF OFFICE VISIT: 05/15/18. SURGEON: Analilia Harden MD.* (DICTATED BY CHRIST MEDLEY) PROCEDURE: Left total hip arthroplasty. CHIEF COMPLAINT: Left hip pain. HISTORY OF PRESENT ILLNESS: Ms. Krishnamurthy is a 53-year-old female with complaints of left hip pain. She has failed conservative treatment and elected to proceed with a left total hip arthroplasty, the surgery is scheduled for . PAST MEDICAL HISTORY: Hypertension, diabetes, fibromyalgia, hepatitis B, and she is a tobacco user. PAST SURGICAL HISTORY: Right knee scope, right total knee arthroplasty, right total knee revision arthroplasty, cyst removal from her right wrist and tubes put in her ears. CURRENT MEDICATIONS: 1. Metaxalone 800 mg 3 times a day as needed. 2. Invokana 100 mg daily. 3. Januvia 100 mg daily. 4. Lisinopril 10 mg daily. 5. Duloxetine 60 mg daily. 6. Atorvastatin calcium 20 mg q.h.s. 7. Zolpidem tartrate 10 mg half to 1 tab q.h.s. 8. Cranberry. 9. Multivitamins. 10. Vitamin C. 11. Percocet 10/325. ALLERGIES: LAMICTAL and TEGADERM. FAMILY HISTORY: Cancer, diabetes, and coronary artery disease. SOCIAL HISTORY: She is a 53-year-old female. She lives with her . She smokes three quarters of pack of cigarettes a day. Does not use drugs or alcohol. REVIEW OF SYSTEMS: A complete 14-point review of systems was reviewed with the patient. It was all positive for hepatitis B, diabetes, and hypertension. She denies history of DVT, PE, MRSA, or anesthesia problems. PHYSICAL EXAMINATION GENERAL: She is well developed, well nourished, in no acute distress. VITAL SIGNS: She stands 5 feet 6 inches tall, weighs 147 pounds. Her blood pressure is 126/76 and heart rate is 80. HEENT: Normocephalic, atraumatic. NECK: Supple. No palpable lymph nodes. PULMONARY: The lungs are clear to auscultation bilaterally. CARDIO: Regular rate and rhythm. Strong S1, S2. ABDOMEN: Soft, nontender, and nondistended. MUSCULOSKELETAL: Left lower extremity: The skin is intact. There are no open wounds or abrasions. She walks with an antalgic-type gait favoring her left hip. She has decreased internal and external rotation of the left hip. She has a 2+ dorsalis pedis pulse, intact sensation in her lower extremity. Muscle group strengths are intact at 5/5. NEUROLOGICAL: She is alert and oriented x3. ASSESSMENT AND PLAN: Ms. Krishnamurthy is a 53-year-old female with end-stage osteoarthritis of the left hip. She has failed conservative treatment and elected to proceed with a left total hip arthroplasty, her surgery is scheduled for 05/26/[address] Harden discussed the risks and benefits of the surgery at today's visit and all of her questions were answered. She will follow up with Dr. Harden 2 weeks after the surgery. CHRIST MEDLEY [id number]/[facility] #: [id number] DYANA
[~2018-05-26 11:14] MED LIST: Buffered Lidocaine 0.9% SYRIN* 5 ML/SYR SYRINGE INTRADERM ONE; Famotidine IV* 10 MG/ML 2 ML (20 mg) IV ONE
--- OUTSIDE RECORDS SUMMARY | 2018-05-26 11:17 | XMS REPORT | Continuity of Care Document ---
:1965 External Reference #:[id number] Author Name Jayden Kimble Care Team Providers Name Role Phone Quoc Kellogg MD Primary Care Physician Unavailable Payers Type Date Identification Numbers Payment Provider Subscriber Policy Number: [id number] [employer] Glenn Krishnamurthy Group Number: [id number] [address] Group Name: [place] [address] PayID: [id number] Onset: 2014 Policy Number: [id number] [place] [employer] Rajani Krishnamurthy Group Number: [id number] [address] [address] PayID: [id number] [place] [address] Advance Directives Description No Information Available Problems Date Description Provider Status Onset: 04/20/2018 Localized, primary osteoarthritis of Analilia Harden M.D. Active the pelvic region and thigh Onset: 04/20/2018 Localized, primary osteoarthritis Analilia Harden M.D. Active Onset: 07/24/2015 Fibromyalgia Jagjit Gil M.D. Active Family History Date Family Member(s) Problem(s) Comments General Heart Disease General Diabetes General Cancer Social History Type Date Description Comments Sex Unknown Lives With Occupation Unemployed Tobacco Use Start: Unknown currently smokes 1/2 Pack Daily Tobacco Use Start: Unknown started age 16 ETOH Use Rarely consumes alcohol Tobacco Use Start: Unknown Patient is a current smoker, smokes every day Recreational Drug Use Denies Drug Use Tobacco Use Start: Unknown Heavy tobacco smoker (more than 10 cigarettes/day) Smoking Status Reviewed: 05/15/18 Heavy tobacco smoker (more than 10 cigarettes/day) Exercise Type/Frequency Does not exercise Allergies, Adverse Reactions, Alerts Date Description Reaction Status Severity Comments 12/08/2008 Lamictal RASH Active 04/20/2018 Tape BLISTERS Active Severe Tegaderm Medications Medication Date Status Form Strength Qnty SIG Indications Ordering Provider Meloxicam 04/20/ Active Tablets 15mg 30tabs 1 by M25.552 Analilia 2018 mouth Dereck, every day M.D. Metaxalone / Active Tablets 800mg Take 1 Unknown 0000 Tablet By Mouth 3 Times A Day For Muscle Spasm Invokana / Active Tablets 100mg Take 1 Unknown 0000 Tablet By Mouth Every Day Nystatin / Active Cream [id number] Apply To Unknown 0000 /GM Vaginal Area Twice Daily Januvia / Active Tablets 100mg 1 by Unknown 0000 mouth every day Lisinopril / Active Tablets 10mg 1 by Unknown 0000 mouth every day Duloxetine HCL / Active Caps DR 60mg 1 by Unknown 0000 Part mouth every day Atorvastatin / Active Tablets 20mg take 1 Unknown Calcium 0000 tablet at bedtime Zolpidem / Active Tablets 10mg 1/2 to 1 Unknown Tartrate 0000 tab by mouth every night at bedtime as needed Oxycodone-Aceta / Active Tablets 10-325mg take 1 Unknown minophen 0000 tablet by mouth every 6 hours as needed for pain Cranberry / Active Unknown 0000 Multivitamin / Active Unknown 0000 Vitamin C / Active Unknown 0000 Methocarbamol 07/24/ Hx Tablets 750mg 90tabs take two M79.7 Jagjit Alcaraz 2015 - tablets Pollack, 04/19/ by mouth M.D. 2017 three times daily if needed for spasm Ambien 07/19/ Hx Tablets 10mg 14tabs 1 po qhs Aaron Muniz 2009 - prn sleep Gabrielle, M.D. 2017 Tessalon Perles 04/24/ Hx Capsules 100mg 30caps 1-2 po Aaron Muniz 2008 - tid prn Gabrielle, M.D. 2013 Hydrocodone-Janak 12/08/ Hx Tablets 5/500mg 30tabs 1 po qd Aaron Muniz taminophen 2008 - prn Gabrielle, M.D. 2017 Tramadol HCL 12/08/ Hx Tablets 50mg 60tabs 2-3 po qd Aaron E. 2008 - Gabrielle, MRaul 2013 Metoprolol / Hx Tablets 50mg 60tabs 1 po bid Aaron E. Tartrate - Gabrielle, Jen 2013 Cymbalta / Hx Caps one daily Unknown 0000 - 2017 Hydrocodone-Janak / Hx Tablets 10-325mg Take 1 Unknown taminophen 0000 - Tablet By 2017 Every 4 Hours as Needed For Pain Medications Administered in Office Medication Date Status Form Strength Qnty SIG Indications Ordering Provider Depomedrol Administered Injection Analilia 80MG 015 Jen Harden Depomedrol Administered Injection Mary Ann 80MG 014 Jen Gutierrez Immunizations Description No Information Available Vital Signs Date Vital Result Comment 05/15/2018 11:37am Height 66.5 inches 5'6.50" Weight 147.00 lb Heart Rate 80 /min BP Systolic 126 mmHg BP Diastolic 76 mmHg BMI (Body Mass Index) 23.4 kg/m2 04/20/2018 9:43am Height 66.5 inches 5'6.50" Weight 148.00 lb Heart Rate 100 /min BP Systolic 146 mmHg BP Diastolic 92 mmHg BMI (Body Mass Index) 23.5 kg/m2 07/24/2015 2:01pm Height 65.5 inches 5'5.50" Weight 164.00 lb Heart Rate 88 /min BP Systolic Sitting 140 mmHg BP Diastolic Sitting 90 mmHg Pain Level 9 BMI (Body Mass Index) 26.9 kg/m2 01/04/2015 2:29pm Height 65.5 inches 5'5.50" Weight 160.00 lb Pain Level 7 BMI (Body Mass Index) 26.2 kg/m2 12/05/2014 10:59am Height 65.5 inches 5'5.50" Weight 160.00 lb Heart Rate 93 /min BP Systolic 154 mmHg BP Diastolic 96 mmHg Pain Level 7 BMI (Body Mass Index) 26.2 kg/m2 10/20/2014 1:24pm Height 65.5 inches 5'5.50" Weight 160.00 lb Heart Rate 79 /min BP Systolic 183 mmHg BP Diastolic 112 mmHg Pain Level 9 BMI (Body Mass Index) 26.2 kg/m2 09/23/2014 3:19pm Height 65.5 inches 5'5.50" Weight 153.00 lb Heart Rate 93 /min BP Systolic Sitting 153 mmHg BP Diastolic Sitting 100 mmHg Pain Level 9 BMI (Body Mass Index) 25.1 kg/m2 06/09/2014 1:04pm Height 65 inches 5'5" Weight 161.00 lb Heart Rate 83 /min BP Systolic 139 mmHg BP Diastolic 100 mmHg BMI (Body Mass Index) 26.8 kg/m2 07/19/2009 10:46am Heart Rate 80 /min BP Systolic Sitting 130 mmHg BP Diastolic Sitting 72 mmHg 05/12/2009 10:03am Weight 176.00 lb Heart Rate 60 /min BP Systolic Sitting 136 mmHg BP Diastolic Sitting 74 mmHg 04/24/2009 10:00am Heart Rate 100 /min BP Systolic Sitting 130 mmHg BP Diastolic Sitting 80 mmHg Body Temperature 99.6 F 12/08/2008 3:31pm Height 65.25 inches 5'5.25" Weight 179.00 lb Heart Rate 72 /min BP Systolic Sitting 102 mmHg BP Diastolic Sitting 78 mmHg Respiratory Rate 24 /min BMI (Body Mass Index) 29.6 kg/m2 Results Test Date Facility Test Result H/L Range Note CBC With 01/02/2009 [facility] White Blood 9.8 CUMM 4.8-10.8 Electronic Diff [address] [place] [address] [phone] Red Cell Count 4.65 CUMM 4.2-5.4 Hemoglobin 15.1 g/dL 12.0-16.0 Hematocrit 42 % 35-47 Mean Corpuscular Volume 91 um3 79-97 Mean Corpuscular Hemoglob 32 pg High 27-31 Mean Corpuscular HGB Cone 36 g/dL 32-36 Redcell Distribution WDTH 13 % 10.5-15 Platelet Count 163 CUMM 150-450 Mean Platelet Volume 10.5 um3 High 7.4-10.4 Gran % 57.3 % 38-83 Lymph % 33.8 % 25-47 Mononuclear % 6.5 % 1-9 Eosinophil % 2.0 % 0-6 Basophil % 0.4 % 0-2 Abs Lymphs 3.3 1.0-4.8 Abs Mononuclear 0.6 0-0.8 Absolute Neutrophil Count 5.7 1.5-7.7 Abs Eosinophils 0.2 0-0.6 Abs Basophils 0 0-0.2 Ua Stat 01/02/2009 [facility] Ua Color YELLOW [address] [place] [address] [phone] Appearance-Urine CLEAR Specific Swengel-Ur 1.005 Low 1.010-1.030 Esterase-Urine NEGATIVE Negative Nitrite NEGATIVE Negative [id number] NEGATIVE Negative Protein-Urine NEGATIVE Negative PH-Urine 6.0 5-9 Blood-Urine NEGATIVE Negative Ketones-Urine NEGATIVE Negative Bilirubin-Ur NEGATIVE Negative Glucose-Urine NEGATIVE Negative CMP Panel Stat 01/02/2009 [facility] Sodium 137 mmol/L 135- 145 [address] [place] [address] [phone] Potassium 3.9 mmol/L 3.5-5.0 Chloride 104 mmol/L 101-111 Co2 (Carbon Dioxide) 24.0 mmol/L 22-32 Anion Gap 9.0 mmol/L 2-11 1 Glucose 101 mg/dL High 70-100 2 BUN 5 mg/dL Low 6-24 Creatinine 0.60 mg/dL 0.50-1.40 One Over Creatinine 1.60 BUN/Creatinine Ratio 8.3 8-20 Calcium 9.0 mg/dL 8.1-9.9 3 Total Protein 6.2 GM/DL 6.2-8.1 Albumin 3.7 GM/DL 3.6-5.4 Globulin 2.5 GM/DL 2-4 Albumin/Globulin Ratio 1.5 1-3 Bilirubin Total 0.6 mg/dL 0.4-1.5 4 Alkaline Phosphatase 74 U/L 30-110 Alt (SGPT) 31 U/L 14-54 Ast (Sgot) 24 U/L 12-42 eGFR Non- 116.0 > 60 eGFR 140.3 > 60 5 Amylase Stat 01/02/2009 [facility] Amylase 64 U/L 30-125 [address] [place] [address] [phone] Laboratory test 01/02/2009 [facility] Lipase 19 U/L Low 22-51 finding [address] [place] [address] [phone] Comp Metabolic 12/19/2008 [facility] Sodium 134 mmol/L Low 135 -145 Panel [address] [place] [address] [phone] Potassium 4.0 mmol/L 3.5-5.0 Chloride 106 mmol/L 101-111 Co2 (Carbon Dioxide) 25.0 mmol/L 22-32 Anion Gap 3.0 mmol/L 2-11 6 Glucose 167 mg/dL High 70-100 7 BUN 5 mg/dL Low 6-24 Creatinine 0.60 mg/dL 0.50-1.40 One Over Creatinine 1.60 BUN/Creatinine Ratio 8.3 8-20 Calcium 8.7 mg/dL 8.1-9.9 8 Total Protein 6.4 GM/DL 6.2-8.1 Albumin 3.8 GM/DL 3.6-5.4 Globulin 2.6 GM/DL 2-4 Albumin/Globulin Ratio 1.5 1-3 Bilirubin Total 0.5 mg/dL 0.4-1.5 9 Alkaline Phosphatase 85 U/L 30-110 Alt (SGPT) 27 U/L 14-54 Ast (Sgot) 20 U/L 12-42 Lipid Profile 12/19/2008 [facility] Triglyceride 739 mg/dL High 40-200 (Trig/Chol/HDL) [address] [place] [address] [phone] Cholesterol 189 mg/dL Less Than 200 10 High Density Lipoprotein 9 mg/dL Low 40-60 11 Cholesterol/HDL Ratio 21.00 AVERAGE High 1-4.44 Low Density Lipoprotein (SEE NOTE) mg/dL Less Than 100 12 Laboratory test 12/19/2008 [facility] TSH 0.77 MIU/ML 0.34- 5.[address] [place] [address] [phone] CBC With Manual 12/19/2008 [facility] White Blood 8.1 CUMM 4.8-10.[address] [place] [address] [phone] Red Cell Count 4.67 CUMM 4.2-5.4 Hemoglobin 14.7 g/dL 12.0-16.0 Hematocrit 43 % 35-47 Mean Corpuscular Volume 92 um3 79-97 Mean Corpuscular Hemoglob 32 pg High 27-31 Mean Corpuscular HGB Cone 34 g/dL 32-36 Redcell Distribution WDTH 13 % 10.5-15 Platelet Count 143 CUMM Low 150-450 Mean Platelet Volume 11.5 um3 High 7.4-10.4 Polysegmented Neutrophil 73 % 38-83 Lymphocyte 21 % Low 25-47 Monocyte 3 % 0-13 Eosenophil 1 % 0-6 Basophil 2 % 0-2 Absolute Neutrophil Count 5.9 RBC Morphology NORMAL 1 Anion gap measurement may be of limited value in the presence of any alkalosis, especially in a combined acid base disorder. . 2 Note change in reference range as of 02/18/08. The change was based on recommendations from the [place] [employer]. 3 Please note change in reference range effective 07 . 4 A metabolite of Naproxen, O-desmethylnaproxen, has been shown to interfere with the [place] method for measuring total bilirubin. Samples from patients who have taken Naproxen have shown spurious elevation in total bilirubin levels. 5 Because ethnic data is not always readily available, this report includes an eGFR for both -Americans and non- Americans. The National Kidney Disease Education Program (NKDEP) does not endorse the use of the MDRD equation for patients that are not between the ages of 18 and 70, are , have extremes of body size, muscle mass, or nutritional status, or are non- or non-. According to the National Kidney Foundation, irrespective of diagnosis, the stage of the disease is based on the level of kidney function: Stage Description GFR(mL/min/1.73 m(2)) 1 Kidney damage with normal or decreased GFR 90 2 Kidney damage with mild decrease in GFR 60-89 3 Moderate decrease in GFR 30-59 4 Severe decrease in GFR 15-29 5 Kidney failure <15 (or dialysis) 6 Anion gap measurement may be of limited value in the presence of any alkalosis, especially in a combined acid base disorder. . 7 Note change in reference range as of 02/18/08. The change was based on recommendations from the [place] [employer]. 8 Please note change in reference range effective 07 . 9 A metabolite of Naproxen, O-desmethylnaproxen, has been shown to interfere with the [place] method for measuring total bilirubin. Samples from patients who have taken Naproxen have shown spurious elevation in total bilirubin levels. 10 CHOLESTEROL INTERPRETATION: Desirable: Less than 200 MG/DL Borderline-High Risk: 200-239 MG/DL High-Risk: 240 MG/DL and over 11 HDL INTERPRETATION: Undesirable: High Risk: Less than 40 MG/DL Desirable: Low Risk: Greater than 60 MG/DL 12 UNABLE TO CALCULATE LDL TRIGLYCERIDE IS > 400 Procedures Date Code Description Status 12/05/2014 Inject/Drain Joint/Bursa Major W/O US Completed 06/09/2014 Inject/Drain Joint/Bursa Major W/O US Completed 02/06/2013 56768 Treadmill Interp/Report Only Completed 02/06/2013 10303 Stress Test Supervsn W/Out I/R Completed 09/13/2009 [id number] Mammogram Completed Encounters Type Date Location Provider Dx Diagnosis Office Visit 04/20/2018 Orthopedic Analilia Harden M25.562 Pain in left knee 9:00a [facility] M25.462 Effusion, left knee M25.552 Pain in left hip M17.12 Unilateral primary osteoarthritis, left knee M16.12 Unilateral primary osteoarthritis, left hip Office Visit 07/24/2015 Neurosurgery Jagjit Olivas79.7 Fibromyalgia 2:00p [facility] Gil M.D. Office Visit 01/04/2015 Orthopedic Analilia Harden, 719.06 Effusion Joint 2:15p [facility] Lower Leg 726.69 Bursitis Knee Other 715.16 Osteoarthrosis Localized Prim Lower Leg Office Visit 12/05/2014 10:50a Orthopedic Analilia Harden 719.06 Effusion Joint [facility] Lower Leg 726.69 Bursitis Knee Other 715.16 Osteoarthrosis Localized Prim Lower Leg Office Visit 10/20/2014 1:15p Orthopedic Analilia Harden 719.06 Effusion Joint [facility] Lower Leg 715.96 Osteoarthrosis Unspec Genlzd Or Localized Lower Leg Office Visit 09/23/2014 3:00p Orthopedic Analilia 715.96 Osteoarthrosis [facility] Jen Harden Unspec Genlzd Or C.MSuresh Localized Lower Leg 715.96 Osteoarthrosis Unspec Genlzd Or Localized Lower Leg Office Visit 06/09/2014 1:00p Orthopedic Mary Ann Gutierrez, 726.0 Adhesive [facility] Jen Capsulitis C.M.AJey Shoulder 726.10 Bursae & Tendon Disorders Shoulder Region Unspec Office Visit 02/06/2013 8:07a [facility] Antonio Cuellar 786.51 Pain Precordial Assoc,Sandy Tam M.D. 250.00 Diabetes Mellitus W/O Compl Type II Or Unspec Controlled 305.1 Tobacco Use Disorder Office Visit 02/05/2013 [facility] Twin Hernandez 786.51 Pain Precordial 8:06a Assoc,richard Latham M.D. Hospitalists Hospitalist 250.00 Diabetes Mellitus W/O Compl Type II Or Unspec Controlled 305.1 Tobacco Use Disorder Office Visit 07/19/2009 10:20a DO Not Use Manipulator Operator AT [facility] Flavio 300.09 Anxiety States Jesse Anthony M.D. Other 465.9 URI Upper Respiratory Infections Acute Unspec Sites Office Visit 05/12/2009 10:00a DO Not Use Manipulator Operator Aaron Muniz 729.5 Pain In Limb AT Jesse Anthony M.D. Office Visit 04/24/2009 9:30a DO Not Use Manipulator Operator Aaron Muniz 465.9 URI Upper AT Jesse Anthony M.D. Respiratory Infections Acute Unspec Sites Office Visit 12/08/2008 3:00p [facility] Aaron Muniz 715.00 Osteoarthrosis Assoc AT Jen Anthony [facility] Unspec 401.1 Hypertension Benign Plan of Treatment Future Appointment(s):06/08/2018 2:30 pm - Analilia Harden M.D. at [facility]05/26/2018 3:30 pm - PEDRO Harding at [facility]05/26/2018 3:30 pm - CHRIST Bowling at [facility]05/26/2018 3:30 pm - Analilia Harden M.D. at [facility]05/15/2018 - Analilia Harden M.D.M25.552 Pain in left hipFollow up:Follow up: 2 weeks after ukrpvnnX36.12 Unilateral primary osteoarthritis, left hip
[2018-05-26] MEDS ORDERED: Ondansetron INJ* 2 MG/ML VIAL ONE (11:37)
[2018-05-26] MEDS ORDERED: Propofol* 10 MG/ML 20 ML BTL ONE (11:37)
[2018-05-26] MEDS ORDERED: Ketorolac INJ* 30 MG/ML 1 ML VIAL ONE (11:37)
[2018-05-26] MEDS ORDERED: fentaNYL* 50 MCG/ML 2 ML VIAL (100 MCG VIAL) ONE ×5 (11:37→16:43)
[2018-05-26] MEDS ORDERED: KETAMINE HCL* 50 MG/ML 10 ML VIAL ONE (11:37)
[2018-05-26] MEDS ORDERED: Dexamethasone IV* 4 MG/ML 1 ML (4 MG) ONE (11:37)
[2018-05-26] MEDS ORDERED: Lidocaine 2% PF * 5 ML VIAL ONE (11:37)
[2018-05-26] MEDS ORDERED: Midazolam* 1 MG/ML 5 ML VIAL (5 MG) ONE (11:37)
[2018-05-26] MEDS ORDERED: ceFAZolin 2 GM PREMIX in ORs 2 GM/50 ML BAG IVPB ONE (11:41)
[2018-05-26] MEDS ORDERED: Famotidine IV* 10 MG/ML 2 ML (20 mg) ONE (11:41)
[2018-05-26] MEDS ORDERED: Bupivacaine 0.5% PF 10 ML VIAL INJ ONE (12:53)
[2018-05-26] MEDS ORDERED: Cisatracurium* 2 MG/ML MDV 5 ML ONE (13:12)
[2018-05-26] MEDS ORDERED: Levalbuterol HFA INHALER* 1 PUFF MDI ONE (13:25)
[2018-05-26] MEDS ORDERED: fentaNYL* 50 MCG/ML 5 ML VIAL (250 MCG VIAL) ONE (14:01)
[2018-05-26] MEDS ORDERED: Levalbuterol 0.63MG/3ML NEB* UNIT OF USE INH PRN (14:26)
[2018-05-26] MEDS ORDERED: Naloxone* 0.4 MG/ML 1 ML VIAL IV PRN (14:26)
[2018-05-26] MEDS ORDERED: Ondansetron INJ* 2 MG/ML VIAL IV PRN ×2 (14:26→15:58)
[2018-05-26] MEDS ORDERED: HYDROmorphone INJ1* 1 MG/ML SYRINGE ONE ×3 (15:07→16:12)
[2018-05-26] MEDS ORDERED: Polyethylene Glycol 3350* 17 GM PACKET PO PRN (15:58)
[2018-05-26] MEDS ORDERED: traMADol TAB* 50 MG PO PRN (15:58)
[2018-05-26] MEDS ORDERED: diPHENhydraMINE PO* 25 MG PO PRN (15:58)
[2018-05-26] MEDS ORDERED: diPHENhydraMINE IV* 50 MG/ML 1 ml VIAL (BENADRYL) IV PRN (15:58)
[2018-05-26] MEDS ORDERED: oxyCODONE/Acetamin 5/325 MG* TAB PO PRN (15:58)
[2018-05-26] MEDS ORDERED: Cyclobenzaprine TAB* 10 MG PO PRN (15:58)
[2018-05-26] MEDS ORDERED: Magnesium Hydroxide LIQ* 30 ML UDC PO PRN (15:58)
[2018-05-26] MEDS ORDERED: Bisacodyl SUPP* 10 MG SUPP PR PRN (15:58)
[2018-05-26] MEDS ORDERED: Acetaminophen IV 1GM/100ML * 100 ML ONE (16:00)
[2018-05-26] MEDS: HYDROmorphone INJ1* 1 MG/ML SYRINGE IV PRN ×4 (16:01→16:35)
[2018-05-26] MEDS ORDERED: Albuterol/Ipratropium NEB.SOL* Albuterol 2.5 MG/Ipratropium 0.5 MG 3 ML INH PRN (16:09)
[2018-05-26] MEDS ORDERED: Zolpidem TAB* 10 MG PO PRN (16:09)
[2018-05-26] MEDS ORDERED: Nystatin CREAM* 15 GM TUBE TOPICAL PRN (16:09)
[2018-05-26] MEDS: fentaNYL* 50 MCG/ML 2 ML VIAL (100 MCG VIAL) IV PRN ×2 (16:43→17:00)
[2018-05-26] MEDS ORDERED: oxyCODONE/Acetamin 5/325 MG* TAB ONE (17:56)
[2018-05-26] MEDS ORDERED: Morphine VIAL* 4 MG/ML VIAL (1 ml vial) ONE (17:57)
[2018-05-26] MEDS ORDERED: Canagliflozin (NF) 100 MG TAB PO SCH (18:00)
[2018-05-26] MEDS: oxyCODONE/Acetamin 5/325 MG* TAB PO PRN ×2 (18:00→22:23)
[2018-05-26] MEDS: Morphine VIAL* 4 MG/ML VIAL (1 ml vial) IV PRN ×2 (18:03→20:03)
[2018-05-26] MEDS ORDERED: Warfarin TAB(*) 6 MG PO ONE (18:30)
[2018-05-26] MEDS ORDERED: Dextrose 50% Syringe 50 ML* 25 GM/50 ML SYRINGE IV PUSH PRN (18:35)
[2018-05-26] MEDS: DULoxetine DR CAP* 30 MG CAP.DR PO SCH (18:43)
[2018-05-26] MEDS ORDERED: Mouth Piece, Nicotine* 1 EACH CARTRIDGE INH SCH (19:30)
[2018-05-26] MEDS: oxyCODONE TAB* 5 MG TAB PO PRN (19:59)
[2018-05-26] MEDS: Nicotine Inhaler* 10 MG AMP INH PRN (20:00)
[2018-05-26] MEDS: Prenatal Vitamin TAB PO SCH (20:06)
[2018-05-26] MEDS: Magnesium Hydroxide LIQ* 30 ML UDC PO SCH (22:24)
[2018-05-26] MEDS: Docusate CAP* 100 MG PO SCH (22:24)
[2018-05-26] MEDS: Acetaminophen TAB* 325 MG PO SCH (22:25)
[2018-05-26] MEDS: ceFAZolin 1 GM in Dextrose (*) 1 GM/50 ML BAG IVPB SCH (22:27)
[2018-05-27] MEDS: oxyCODONE TAB* 5 MG TAB PO PRN ×4 (01:57→15:40)
--- NOTE | 2018-05-27 03:58 | CONS ---
[facility] MEDICINE CONSULTATION REPORT: DATE OF CONSULT: 05/26/18 PROVIDER: Kimberly Pugh NP ATTENDING PHYSICIAN: Dr. Harden. CONSULTING PHYSICIAN: Dr. Mirian Hilario (dictated by Kimberly Pugh NP). REASON FOR CONSULT: Diabetes and hypertension. HISTORY OF PRESENT ILLNESS: Ms. Krishnamurthy is a 53-year-old with a past medical history significant for hypertension, diabetes, fibromyalgia and hepatitis B, who presented to [facility] for an elective left total hip arthroplasty with Dr. Harden. Please see dictated H and P from CHRIST Hernandez, for complete details. In brief, the patient had ongoing pain and failed conservative measures; therefore, opted for an elective left total hip replacement. In the immediate postoperative period, the patient has no complaints. She is resting in her bed. She is awake, alert, and oriented x3. She denies any recent illnesses. Due to her chronic medical conditions, we were asked to consult to co-manage her hypertension and diabetes. PAST MEDICAL HISTORY: 1. Hypertension. 2. Diabetes. 3. Fibromyalgia. 4. Hepatitis B. PAST SURGICAL HISTORY: Significant for right total knee arthroplasty, right total knee revision arthroplasty, cyst removal from the right wrist. HOME MEDICATIONS: 1. Metaxalone 800 mg 3 times a day as needed. 2. Invokana 100 mg p.o. daily. 3. Januvia 100 mg p.o. daily. 4. Lisinopril 10 mg p.o. daily. 5. Duloxetine 60 mg p.o. daily. 6. Atorvastatin 20 mg p.o. at h.s. 7. Zolpidem tartrate 10 mg half a tablet at h.s. 8. Cranberry. 9. Multivitamin. 10. Vitamin C. 11. Percocet 10/325 as needed for pain. ALLERGIES: LAMICTAL and TEGADERM. FAMILY HISTORY: Mother with a history of CHF. Mother and father with a history of diabetes, cancer. Father with bladder, prostate, brain and esophageal cancer. SOCIAL HISTORY: The patient reports smoking 3 quarters of pack per day for 38 years. Denies any alcohol or illicit drug use. She is . Surrogate decision maker in the event she is unable to make her own decisions is her , Glenn. She is a full code. REVIEW OF SYSTEMS: There was no fever, no chills, no unintended weight loss. Cardiac: No chest pain. No edema. Respiratory: No cough, congestion, hemoptysis, or shortness of breath. GI: No nausea, vomiting, or diarrhea. No abdominal pain. : Denies any urinary frequency or urgency. Neurologic: She denies any focal weakness or sensory loss. Eyes: No visual complaints. ENT: No dysphagia. Musculoskeletal: No arthralgias or myalgias. Skin: No rashes or lesions. Psych: Denies any depression or anxiety. PHYSICAL EXAM: Vital Signs: Temperature was 97.6, heart rate was 70, respirations 16, O2 saturation 96%, blood pressure 124/68. General: Ms. Krishnamurthy is sitting in her bed, on short-stay surgical. She is in no acute distress. Neuro: She is alert and oriented x3. She is able to move all extremities. Cardiac: S1, S2. Regular rate and rhythm. No murmurs, rubs, or gallops. Lungs are clear to auscultation bilaterally. No wheezes, rales, or rhonchi. Abdomen is soft and nontender. Bowel sounds are present x4. Extremities: No cyanosis or edema. She does have a dressing intact to her left hip. Pedal pulses are +2 bilaterally and sensation is intact. DIAGNOSTIC STUDIES/LAB DATA: Blood work from 05/15/18: WBCs were 11.9, RBCs 4.94, hemoglobin was 14.8, hematocrit was 44, platelet count was 192. INR was 0.90, PTT was 35.2. Sodium 134, potassium 4.6, chloride 101, carbon dioxide was 26, anion gap was 7, BUN was 11, creatinine 0.83, glucose today on 05/26/18 was 158, calcium was 9.2 on 05/15/18. Urine from 05/15/18 was within normal limits with 3+ for glucose and negative for ascorbic acid. She had a pelvis x-ray on 05/26/18. Radiologist's impression: Left hip replacement in satisfactory position. IMPRESSION AND PLAN: Ms. Krishnamurthy is a 53-year-old female with past medical history significant for hypertension and diabetes, who presented to [facility] for an elective left total hip arthroplasty with Dr. Harden. In the immediate postoperative period, there are no complaints. We were asked to see and consult on the patient to co-manage her diabetes and hypertension during this hospitalization. Our recommendations are as follows: 1. Status post left total hip arthroplasty with Dr. Harden. Management per Orthopedics. PT/OT per Orthopedics. 2. Hypertension. I would hold her lisinopril at this time and reevaluate tomorrow and resume as blood pressure supports. 3. Diabetes. I would hold her Invokana and Januvia at this time. We will start her on Accu-Cheks a.c. and lispro sliding scale with meals. We will continue on consistent carb diet. 4. DVT prophylaxis: As per Orthopedics. 5. FEN: I would continue with a consistent carb diet. 6. Code status: She is a full code. TIME SPENT: Time spent on this consultation was 45 minutes, more than half of that time was spent with the patient at the bedside reviewing events leading thus far to her hospitalization, performing physical exam, and reviewing my plan of care. I have discussed this with my attending, Dr. Mirian Hilario; she is in agreement with my plan. KIMBERLY PUGH, CLAIMS PROCESSOR [id number]/CPS #: [id number] DYANA
[2018-05-27] MEDS: oxyCODONE/Acetamin 5/325 MG* TAB PO PRN ×4 (04:22→18:32)
[2018-05-27] MEDS: Nicotine Inhaler* 10 MG AMP INH PRN (05:39)
[2018-05-27] MEDS: ceFAZolin 1 GM in Dextrose (*) 1 GM/50 ML BAG IVPB SCH ×2 (05:40→14:15)
[2018-05-27 06:15] LABS: Hematocrit 31 % (35-47); Hemoglobin 10.3 g/dl (12.0-16.0); Mean Platelet Volume 9.9 fL (7.4-10.4); Platelet Count 159 10^3/ul (150-450)
[2018-05-27 06:23] LABS: INR 0.94 (0.77-1.02)
[2018-05-27] MEDS ORDERED: Nicotine PATCH 21 MG/24 HR* PATCH TRANSDERM SCH (08:00)
[2018-05-27] MEDS: Acetaminophen TAB* 325 MG PO SCH ×2 (08:15→14:20)
[2018-05-27] MEDS: Docusate CAP* 100 MG PO SCH (08:24)
[2018-05-27] MEDS: Magnesium Hydroxide LIQ* 30 ML UDC PO SCH (08:24)
[2018-05-27] MEDS: Insulin LISPRO* 1 UNITS UNIT SUBCUT SCH ×3 (08:25→17:43)
[2018-05-27] MEDS ORDERED: Lisinopril TAB* 10 MG PO SCH (09:00)
[2018-05-27] MEDS ORDERED: CMC:SitaGLIPtin (NF) 100 MG TAB PO SCH (09:00)
[2018-05-27] MEDS ORDERED: Atorvastatin* 20 MG TAB PO SCH (09:00)
--- NOTE | 2018-05-27 12:05 | PN ---
Progress Note - Progress Note Date of Service: 05/27/18 SOAP: Subjective: []Patient seen and examined at bedside. She feels quite well without chest pain , shortness of breath, dizziness, nausea. LLE pain is well controlled. She is considering DC home this afternoon Objective: []General: Well appearing, NAD LLE: left hip dressing CDI without surrounding erythema. Thigh is soft, DF/PF intact, sensation intact distally, DP2+ Calves supple and nontender without erythema, edema or palpable cords Assessment: []POD 1 sp Left total hip arthroplasty Plan: []WBAT PT/OT, posterior hip precautions Lovenox bridge to coumadin, coumadin 8 mg today. If she DCs home today will transition to ASA 325 BID. No hx of blood clot or cancer Soft BP- 1000 ml LR bolus given, patient is asymptomatic Vital Signs Temp 99.0 F 05/27/18 11:36 Pulse 78 05/27/18 11:36 Resp 16 05/27/18 11:36 BP 106/56 05/27/18 11:36 Pulse Ox 100 05/27/18 11:36 Intake & Output 05/26/18 05/27/18 05/27/18 18:59 06:59 18:59 Intake Total 3650 1915 530 Output Total 500 2700 650 Balance 3150 -785 -120 Weight 145 lb Intake: IV Fluids 3050 980 530 ABX - CEFAZOLIN 55 LR 3000 980 475 NS 50ML, Cefazolin 2G 50 IVPB 55 ABX - CEFAZOLIN 55 Oral 600 880 Output: Urine 650 Daly 500 2700 Laboratory Last Values Hgb 10.3 g/dl (12.0-16.0) L 05/27/18 06:02 Hct 31 % (35-47) L 05/27/18 06:02 Plt Count 159 10^3/ul (150-450) 05/27/18 06:02 MPV 9.9 fL (7.4-10.4) 05/27/18 06:02 INR (Anticoag Therapy) 0.94 (0.77-1.02) 05/27/18 06:01 Sodium 135 mmol/L (135-145) 05/27/18 06:01 Potassium 4.1 mmol/L (3.5-5.0) 05/27/18 06:01 Chloride 105 mmol/L (101-111) 05/27/18 06:01 Carbon Dioxide 24 mmol/L (22-32) 05/27/18 06:01 Anion Gap 6 mmol/L (2-11) 05/27/18 06:01 BUN 10 mg/dL (6-24) 05/27/18 06:01 Creatinine 0.69 mg/dL (0.51-0.95) 05/27/18 06:01 Est GFR ( Amer) 107.7 (>60) 05/27/18 06:01 Est GFR (Non-Af Amer) 89.0 (>60) 05/27/18 06:01 BUN/Creatinine Ratio 14.5 (8-20) 05/27/18 06:01 Glucose 270 mg/dL (70-100) H 05/27/18 06:01 POC Glucose (mg/dL) 273 mg/dL (70-100) H 05/27/18 11:34 Calcium 8.6 mg/dL (8.6-10.3) 05/27/18 06:01
[2018-05-27] MEDS ORDERED: Enoxaparin(*) 30 MG/0.3 ML SYR SUBCUT SCH (16:00)
[2018-05-27 16:38] VITALS: BP 112/72
[2018-05-27] MEDS: DULoxetine DR CAP* 30 MG CAP.DR PO SCH (17:34)
[2018-05-27] MEDS: Prenatal Vitamin TAB PO SCH (17:34)
--- NOTE | 2018-05-27 19:14 | OP ---
DATE OF OPERATION: 05/26/18 - ROOM #350 DATE OF : 65 SURGEON: Analilia Harden MD NIPPLE MACHINE OPERATOR: CHRIST Harding. Inés did help throughout the procedure with preparation of the leg, wound retraction, manipulation of the hip, and wound closure. ANESTHESIOLOGIST: Dr. Aldrich. ANESTHESIA: General. PRE-OP DIAGNOSIS: Severe end-stage degenerative osteoarthritis of the left hip. POST-OP DIAGNOSIS: Severe end-stage degenerative osteoarthritis of the left hip. OPERATIVE PROCEDURE: Left total hip arthroplasty. HARDWARE USED: This is uncemented [place] total hip arthroplasty hardware. For the cup, a Trident PSL 46D, a single 20 mm screw was used. For the insert, a Trident X3 0-degree polyethylene insert 32D. For the stem, an Accolade II size 1 with a 132-degree neck. For the head, a Biolox delta ceramic 40 femoral head 32 +0. COMPLICATIONS: None. ESTIMATED BLOOD LOSS: 300 cc. SPECIMEN: Femoral head and acetabular reaming sent to Pathology. BRIEF HISTORY/INDICATIONS: Ms. Krishnamurthy is a 53-year-old female with years of increasingly severe left hip pain. She failed conservative treatment with antiinflammatories, pain medication, and physical therapy. Due to continued pain and decreased quality of life, she elected to undergo left total hip arthroplasty. Radiographs showed advanced arthritis. Informed consent was obtained from the patient. She understood the risks of surgery included, but were not limited to bleeding, infection, damage to nearby structures, continued pain, need for further surgery, intraoperative fracture, nerve palsy, hardware failure or loosening, dislocation, leg length discrepancy, stroke, heart attack , blood clot and . She wished to proceed. INTRAOPERATIVE FINDINGS: Intraoperatively, the patient was noted to have severe end-stage arthritis. She had complete loss of cartilage along the femoral head and acetabulum. She had significant osteopenia noted. The patient was noted to have significant dysplasia with a shallow acetabulum and valgus along femoral neck. DESCRIPTION OF PROCEDURE: Ms. Krishnamurthy was identified in the preanesthesia unit. Her left lower extremity was marked as the correct operative side. Informed consent was signed and placed in the chart. The patient was taken to the operating room and placed under general anesthesia. A Daly catheter was placed. She was placed in the right lateral decubitus position on the pegboard. All bony prominences were well padded. Left lower extremity was prepped and draped in the usual sterile fashion. Preop time-out was made to correctly identify the patient, side and site. Appropriate perioperative antibiotics were given within 1 hour of incision. A 10-cm posterior hip incision was made with a 10 blade. The incision was carried down through the lateral fascia layer. Lateral fascia layer was incised in line with the skin incision. The Charnley retractor was placed. Piriformis and conjoint tendons were elevated off the posterolateral femur. These were tagged with #5 Ethibond. Next, electrocautery was used to make a posterolateral capsular flap and this was also tagged with #5 Ethibond. The hip was carefully dislocated. Lesser troch to the center of the femoral head measured 52 mm. Oscillating saw was used to make the femoral neck cut and the femoral head was removed. The femur was retracted anteriorly. After appropriate placement of retractors, the acetabulum was well visualized. The acetabulum was noted to be shallow and dysplastic. Long-handled knife was used to sharply remove any remaining labrum from the acetabular rim. The acetabulum was sequentially reamed up to a size 46. The 46 reamer obtained a bleeding subchondral bone bed. The 46 trial had excellent fit and stability. Final implant chosen was a Trident PSL AVITIA posterior acetabular shell 46D. This was impacted into the acetabulum without difficulty. The cup was stable with appropriate anteversion and abduction angle. A single 20-mm screw was placed in the superoposterior quadrant for extra stability. A Trident X3 32D 0- degree polyethylene liner was chosen. This was impacted into the acetabulum. Stability of the liner was checked and rechecked and noted to be stable. Next, attention was turned to preparation of the proximal femur. A canal finder was used to enter the proximal femur. The proximal femur was sequentially broached up to a size 1. Size 1 broach had excellent fit and stability with appropriate anteversion. A 132 neck trial and a 32 +0 head trial was chosen. Lesser troch to the center of the femoral head measured 53 mm. The hip was reduced and taken through a range of motion. The hip was stable in all positions. There was good soft tissue tension and appropriate leg lengths. The hip was dislocated and all trials were removed. Final implant chosen was an Accolade II size 1 with a 132 degree neck. This was impacted into the femoral canal without difficulty. This stem was stable with appropriate anteversion. A 32 +0 Biolox delta ceramic V40 femoral head was chosen. This was impacted onto the femoral neck. The lesser troch to the center of the femoral head final measurement was 53 mm. The hip was reduced and taken through a range of motion. The hip was stable in all positions. There was good soft tissue tension and appropriate leg lengths. The hip was copiously irrigated with sterile saline once again. Previously tagged capsule and tendons were reapproximated to the posterolateral femur through 2 trochanteric drill holes. Lateral fascia layer was closed using interrupted #1 Vicryl. The rest of the incision was closed in a layered fashion using 0 and 2-0 Vicryls. Skin was closed using running 3-0 Monocryl and Dermabond. Sterile Adaptic, 4x4's, and paper tape were used to cover the incision. The patient's anesthesia was reversed without difficulty. She was taken to the PACU in stable condition. Intended weightbearing will be weightbearing as tolerated. Intended DVT prophylaxis will be Coumadin with a Lovenox bridge. [id number]/[facility] #: [id number] DYANA
[2018-05-28] MEDS ORDERED: Nicotine Patch Removal NOTE PATCH OFF SCH (08:00)
[2018-05-28] MEDS ORDERED: Pneumococcal *Vac Polyvalent 0.5 ML VIAL IM ONE (09:00)
--- NOTE | 2018-05-28 09:07 | DS ---
AMENDED REPORT NOW INCLUDES DESIGNATED COSIGNER DISCHARGE SUMMARY: DATE OF ADMISSION: 05/26/18 DATE OF DISCHARGE: 05/27/18 ATTENDING ORTHOPEDIC PROVIDER AND SURGEON: Dr. Analilia Harden.* (DICTATED BY CHRIST RICHARDSON) OPERATIVE PROCEDURE: Left total hip arthroplasty. HISTORY: Ms. Krishnamurthy is a 53-year-old female with complaints of left hip pain. She failed conservative management and elected to undergo a left total hip arthroplasty. HOSPITAL COURSE: The patient was admitted to [facility] on . She underwent left total hip arthroplasty without complication. Postop day 1, she was well-appearing, in no acute distress. Dressing was changed. Incision clean, dry, and intact without any surrounding erythema. Thigh was soft. Dorsiflexion and plantarflexion intact. Sensation intact distally. Dorsalis pedis pulse 2+. Vital Signs: Temperature 99.0, pulse 78, respiratory rate 16, blood pressure 106/56, pulse ox 100. LAB VALUES: Hemoglobin 10.3, hematocrit 31. INR 0.94. Potassium 4.1, sodium 135. DISCHARGE MEDICATIONS: 1. Ambien 10 mg p.o. at bedtime p.r.n. 2. Januvia 100 mg p.o. q.a.m. 3. Skelaxin 800 mg p.o. t.i.d. p.r.n. 4. Atorvastatin 20 mg p.o. q.a.m. 5. Albuterol DuoNeb and ipratropium DuoNeb 1 neb inhaled q.4 hours p.r.n. 6. Invokana 100 mg p.o. q.p.m. 7. Lisinopril 10 mg p.o. q.a.m. 8. Duloxetine 60 mg p.o. q.p.m. 9. Multivitamin 1 tab p.o. q.p.m. 10. Vitamin C 1000 mg p.o. q.a.m. 11. Nystatin cream 1 application topically t.i.d. p.r.n. 12. Discontinue meloxicam at home. 13. Percocet 10/325 one tab p.o. q.4 hours p.r.n. The patient already has this medication at home. 14. Acetaminophen 975 p.o. q.8 hours p.r.n., max daily 4000 mg acetaminophen from all sources per day. 16. Docusate 100 mg p.o. b.i.d. 17. Eliquis 2.5 mg p.o. b.i.d. for 30 days. DISCHARGE PLAN: The patient will be weightbearing as tolerated. She will continue her posterior hip precautions. DVT prophylaxis is Eliquis 2.5 mg p.o. b.i.d. for 30 days as she is leaving post day 1 and has not had reached the therapeutic INR yet. Pain control, utilize Percocet you already have at home, Percocet 10/325 one tab by mouth every 4 to 6 hours as needed for pain max of 6 tabs per day. Please follow up with Dr. Harden in 10 to 14 days. The patient is being discharged to home. CHRIST SHELDON [id number]/[facility] #: [id number] [facility]
== END 2018-05-27 18:40 | disposition home health service (06) | DRG 470 ==
LOC: AA 11:14 → SSU 17:47
PROVIDERS: ADMIT Orthopaedic Surgery Adult Reconstructive Orthopaedic Surgery; ATTEND Orthopaedic Surgery Adult Reconstructive Orthopaedic Surgery
PROC: 0SRB04A Replacement of Left Hip Joint with Ceramic on Polyethylene Synthetic Substitute, Uncemented, Open Approach (ICD-10-PCS; principal; 2018-05-26 13:00)
DX: M16.12 Unilateral primary osteoarthritis, left hip (principal); B19.10 Unspecified viral hepatitis B without hepatic coma; I10 Essential (primary) hypertension; E11.9 Type 2 diabetes mellitus without complications; F17.210 Nicotine dependence, cigarettes, uncomplicated; M85.88 Other specified disorders of bone density and structure, other site; M79.7 Fibromyalgia; Z96.651 Presence of right artificial knee joint; Z88.8 Allergy status to other drugs, medicaments and biological substances; Z82.49 Family history of ischemic heart disease and other diseases of the circulatory system; Z83.3 Family history of diabetes mellitus; Z79.899 Other long term (current) drug therapy; Z79.84 Long term (current) use of oral hypoglycemic drugs; Z80.42 Family history of malignant neoplasm of prostate; Z80.52 Family history of malignant neoplasm of bladder; Z80.0 Family history of malignant neoplasm of digestive organs; Z80.8 Family history of malignant neoplasm of other organs or systems; Z87.828 Personal history of other (healed) physical injury and trauma; Q65.89 Other specified congenital deformities of hip
CPT/HCPCS: 36415; 72170; 80048; 85014; 85018; 85049; 85610; 88304; 88311; A9270-GY; C1713; C1776; G8987-GO-CI; G8988-GO-CI; J0690; J1100; J1170; J1650; J1885; J2250; J2270; J2405; J2704; J3010

== ENCOUNTER 2019-09-13 14:02 | Emergency (ER) | payer OTHER ==
[2019-09-13 16:28] VITALS: BP 135/84
--- NOTE | 2019-09-13 16:31 | UC ---
Elbow Pain - HPI Summary HPI Summary: 54 y/o female presents to the urgent care c/o RT elbow pain and swollen for the past 3 days s/p heavy lifting. Pt reports she woke up Friday and noticed her left elbow was swollen. She has applied ice and taken hydrocodone PO which she usually takes for her chronic back pain. However now her pain has increased is now 9/10 radiating to her Rt forearm and more swollen and w/ mild numbness radiating to her RT forearm at times. She can move her shoulder and Rt hand w/ o any difficulty. She denies fever, Hx of previous injury, URI symptoms, chest pain, shoulder pain, abdominal pain, N/V/D, or rash. Pt has a band aid on her RT forearm and when ask she states she cat bite her about 1.5 weeks ago and she has been applying triple antibiotic oint. She states she is UTD w/ Tetanus vaccine and her cat is UTD w/ all vaccines. - History of Current Complaint Chief Complaint: UCUpperExtremity Stated Complaint: ELBOW COMPLAINT Time Seen by Provider: 09/13/19 16:30 Hx Obtained From: Patient Hx Last Menstrual Period: "NEVER HAD ONE" ?: No Onset/Duration: Days - 2 days w/ Rt elbow seollen and painful s/p heavy lifting Severity Initially: Mild Severity Currently: Moderate Pain Intensity: 9 - w/ movement Pain Scale Used: 0-10 Numeric Location Of Pain: Is Discrete @ - RT elbow, Radiates To - RT forearm Character: Sharp Aggravating Factor(s): Movement Alleviating Factor(s): Rest, Other - Hydricodone she has at e for her chronic back pain Associated Signs And Symptoms: Positive: Swelling, Numbness/Tingling - mild Rt fore arm. Negative: Redness, Bruising, Fever, Weakness - Allergies/Home Medications Allergies/Adverse Reactions: Allergies Allergy/AdvReac Type Severity Reaction Status Date / Time Adhesive Tape Allergy Severe Blisters Verified 09/13/19 16:28 [Tegaderm Dressing] lamotrigine [From Lamictal] Allergy Severe Rash Verified 09/13/19 16:28 Home Medications: Home Medications Zolpidem TAB* [Ambien*] 10 mg PO BEDTIME 12/10/12 [History Confirmed 09/13/19] Metaxalone TAB* [Skelaxin TAB*] 800 mg PO TID PRN 11/04/16 [History Confirmed ] Sitagliptin (NF) [Januvia (NF)] 100 mg PO QAM 11/04/16 [History Confirmed ] Atorvastatin* [Lipitor 20 MG*] 20 mg PO QAM 11/06/16 [History Confirmed 09/13/19 ] Albuterol/Ipratropium NEB.WENDIE* [Duoneb (Albuterol 2.5 MG/Ipratropium 0.5 MG)] 1 neb INH Q4H PRN #60 neb.soln 11/28/16 [Rx Confirmed 09/13/19] Canagliflozin (NF) [Invokana (NF)] 100 mg PO QPM 01/07/18 [History Confirmed ] DULoxetine CAP* [Cymbalta CAP*] 60 mg PO QPM 05/15/18 [History Confirmed ] Multivitamin [One Daily] 1 each PO QPM 05/15/18 [History Confirmed 09/13/19] Nystatin CREAM* 1 applic TOPICAL TID PRN 05/15/18 [History Confirmed 09/13/19] lisinopriL [Lisinopril] 10 mg PO QAM 05/15/18 [History Confirmed 09/13/19] Dicloxacillin CAP* [Dynapen CAP*] 250 mg PO QID #28 cap 09/13/19 [Rx] PMH/Surg Hx/FS Hx/Imm Hx Previously Healthy: Yes Endocrine History: Diabetes Cardiovascular History: Hypertension Other Neurological History: Chronic back pain Other History Of: Negative For: Anticoagulant Therapy - Surgical History Surgical History: Yes Surgery Procedure, Year, and Place: RIGHT KNEE SURGERY,. TOTAL RIGHT KNEE SURGERY 2009 W/ REVISION IN 2011,. CYST REMOVED FROM RT WRIST, - [facility]. RT BREAST BIOPSY. TUBES IN EARS 2014. 04/2019 LEFT HIP REPLACEMENT - [facility] - Family History Known Family History: Positive: Hypertension, Diabetes, Respiratory Disease - Social History Occupation: Employed Full-time Alcohol Use: None Substance Use Type: None Smoking Status (MU): Heavy Every Day Tobacco Smoker Type: Cigarettes Amount Used/How Often: 3/4 ppd Length of Time of Smoking/Using Tobacco: 20+ years Have You Smoked in the Last Year: Yes Household Exposure Type: Cigarettes - Immunization History Most Recent Influenza Vaccination: 10/11/18 Most Recent Tetanus Shot: >10 yrs Most Recent Pneumonia Vaccination: none Review of Systems All Other Systems Reviewed And Are Negative: Yes Constitutional: Positive: Negative Skin: Positive: Negative Eyes: Positive: Negative ENT: Positive: Negative Respiratory: Positive: Negative Cardiovascular: Positive: Negative Gastrointestinal: Positive: Negative Genitourinary: Positive: Negative Motor: Positive: Negative Neurovascular: Positive: Negative Musculoskeletal: Positive: Decreased ROM - RT elbow, Other: - Rt elbow pain and swollen s/p heavy lifting 2 days ago Neurological/Mental Status: Positive: Negative Psychological: Positive: Negative Is Patient Immunocompromised?: No Physical Exam - Summary Physical Exam Summary: Vital Signs Reviewed: Yes General: well developed, well nourished female sitting in the examining table w/ o any apparent distress. Eyes: Positive: Conjunctiva Clear - PERRLA, EOMI, ENT: Positive: Normal ENT inspection, Hearing grossly normal, Pharynx normal, TMs normal - B/L, Uvula midline Neck: Positive: Supple, Nontender, No Lymphadenopathy Respiratory: Positive: Chest non-tender, Lungs clear, Normal breath sounds, No respiratory distress, No accessory muscle use Cardiovascular: Positive: RRR, No Murmur, Pulses Normal, Brisk Capillary Refill Abdomen Description: Positive: Nontender, No Organomegaly, Soft. Negative: CVA Tenderness (R), CVA Tenderness (L) Bowel Sounds: Positive: Present Musculoskeletal: Positive: Strength Intact, RT Elbow: The R elbow is with mild deformity on the lateral side when compared to the L elbow. No obvious surface trauma, ecchymosis, soft tissue swelling on the medial epicondyle and olecranon. Point tenderness to palpation of the medial epicondyle, olecranon, and radial head. No epicondylar or axillary lymphadenopathy. Decreased ROM due to pain. Muscle strength. Intact motor and sensation of ulnar, median, and radial nerves. Neurological: Positive: Alert, Muscle Tone Normal Psychological Exam: Normal Skin Exam: Normal Triage Information Reviewed: Yes Vital Signs: Initial Vital Signs Temp 98.8 F 09/13/19 16:22 Pulse 85 09/13/19 16:22 Resp 16 09/13/19 16:22 BP 135/84 09/13/19 16:22 Pulse Ox 99 09/13/19 16:22 Elbow Pain Course/Dx - Course Course Of Treatment: 54 y/o female presents to the urgent care c/o RT elbow pain and swollen for the past 3 days s/p heavy lifting. Pt reports she woke up Friday and noticed her left elbow was swollen. She has applied ice and taken hydrocodone PO which she usually takes for her chronic back pain. However now her pain has increased is now 9/10 radiating to her Rt forearm and more swollen and w/ mild numbness radiating to her RT forearm at times. She can move her shoulder and Rt hand w/ o any difficulty. She denies fever, Hx of previous injury, URI symptoms, chest pain, shoulder pain, abdominal pain, N/V/D, or rash. Pt has a band aid on her RT forearm and when ask she states she cat bite her about 1.5 weeks ago and she has been applying triple antibiotic oint. She states she is UTD w/ Tetanus vaccine and her cat is UTD w/ all vaccines. Hx obtained. RT elbow X-ray ordered, Report: #. Negative for joint effusion, fracture, or articular malalignment. #. Very mild osteophytosis at the humeral ulnar articulation. Negative for significant joint space narrowing. #. Soft tissue swelling greatest over the ulnar aspect superficial to the medial epicondyle. Suggestion of early enthesophyte formation at the level of the origin of the common flexor tendon. IMPRESSION: #. Probable medial epicondylitis as per radiologist. X-ray results discussed with Pt. Pt's RT elbow immobilized with shoulder sling and DENISE bandage. Pt w/ also possible bursitis. PT's symptoms discussed w/ DR Whitaker and he recommends antibiotics. Pt Rx Dicloxacillin PO and advised to continue taking Hydrocodone PO alleviate pain and swelling. PT strongly advised RICE and to f/u with Orthopedic DR Menendez in 1-2 days for further evaluation and treatment on her symptoms D/C instructions explained. Pt understood and agreed with plan of care. Pt left the clinic ambulating - Differential Dx/Diagnosis Differential Diagnosis/HQI/PQRI: Bursitis, Cellulitis, Contusion, Fracture ( Closed), Sprain, Strain, Tendonitis Provider Diagnosis: Other bursitis, not elsewhere classified, right elbow, Medial epicondylitis of elbow Discharge ED - Sign-Out/Discharge Documenting (check all that apply): Patient Departure - D/c home All imaging exams completed and their final reports reviewed: Yes - Discharge Plan Condition: Stable Disposition: HOME Prescriptions: Dicloxacillin CAP* [Dynapen CAP*] 250 mg PO QID #28 cap Patient Education Materials: Tennis Elbow (ED), Elbow Bursitis (ED) Referrals: Quoc Kellogg MD [Primary Care Provider] - 3 Days Nick Menendez MD [Medical Doctor] - 1 Day Additional Instructions: 1-Please continue taking Hydrocodone PO prn you have at home as directed to alleviate pain and swelling. 2- Take Dicloxacillin PO as directed full course of antibiotic since possible bursitis 3-Please apply ice, keep your elbow immobilized with the shoulder sling and DENISE bandage. Avoid strenuous exercise of heavy lifting, 4- Please f/u with Orthopedic DR Menendez in 1-2 days for further evaluation and treatment on your symptoms. - Billing Disposition and Condition Condition: STABLE Disposition: Home
[2019-09-13] MEDS ORDERED: Acetaminophen TAB* 325 MG PO ONE (16:50)
== END 2019-09-13 18:08 | disposition home or self-care (01) ==
LOC: UCEAST 14:02
DX: M77.01 Medial epicondylitis, right elbow (principal); M70.31 Other bursitis of elbow, right elbow; G89.29 Other chronic pain; M54.9 Dorsalgia, unspecified; E11.9 Type 2 diabetes mellitus without complications; I10 Essential (primary) hypertension; M79.89 Other specified soft tissue disorders; Z91.09 Other allergy status, other than to drugs and biological substances; Z79.899 Other long term (current) drug therapy; F17.210 Nicotine dependence, cigarettes, uncomplicated; X50.0XXA Overexertion from strenuous movement or load, initial encounter; Y92.9 Unspecified place or not applicable
CPT/HCPCS: 99213; A9270-GY; G0463

== ENCOUNTER 2020-07-20 12:17 | Observation (INO) ==
[~2020-07-20 12:17] MED LIST changes: -Buffered Lidocaine 0.9% SYRIN* 5 ML/SYR SYRINGE INTRADERM ONE; +Buffered Lidocaine 1% SYRIN 1 ml INTRADERM ONE; +Bupivacaine 0.5% SDV PF 30ML VIAL ONE; +Famotidine IV 10 MG/ML 2 ml VIAL (20 mg) IV ONE; -Famotidine IV* 10 MG/ML 2 ML (20 mg) IV ONE; +Lactated Ringers 1000 ml BAG 1,000 ML IV SCH; +Lidocaine 2% PF 5 ML VIAL ONE; +Ondansetron 4 mg VIAL 2 MG/ML 2 ml VIAL ONE; +Propofol 10 MG/ML 20 ML BTL ONE
[2020-07-20] MEDS ORDERED: Famotidine IV 10 MG/ML 2 ml VIAL (20 mg) ONE (12:44)
[2020-07-20] MEDS ORDERED: Buffered Lidocaine 1% SYRIN 1 ml INTRADERM ONE (12:44)
[2020-07-20] MEDS ORDERED: ceFAZolin 2 GM PREMIX 2 GM/50 ML BAG ONE (12:44)
[2020-07-20] MEDS ORDERED: Rocuronium 50 mg VIAL 10 mg/ml 5 ml VIAL (50 mg) ONE (13:44)
[2020-07-20] MEDS ORDERED: fentaNYL 250 mcg/5 ml 50 MCG/ML 5 ml VIAL (250 MCG) ONE (13:45)
[2020-07-20] MEDS ORDERED: Midazolam 5 mg/5 ml VIAL 1 mg/ml 5 ml VIAL (5 mg) ONE (14:06)
[2020-07-20] MEDS ORDERED: HYDROmorphone 1 MG/1 ML SYRINGE ONE ×3 (14:25→17:18)
[2020-07-20] MEDS ORDERED: Naloxone 0.4 mg VIAL 0.4 mg/ml 1 ml VIAL IV PRN (14:41)
[2020-07-20] MEDS ORDERED: Ondansetron 4 mg VIAL 2 MG/ML 2 ml VIAL IV PRN ×2 (14:41→15:13)
[2020-07-20] MEDS ORDERED: Phenylephrine 40 mcg/mL 10mL (400mcg) SYRINGE ONE (14:42)
[2020-07-20] MEDS ORDERED: Dexamethasone IV 4 MG/ML VIAL 1 ml VIAL ONE (14:42)
[2020-07-20] MEDS ORDERED: Ketamine HCL 50 mg/ml 10 ml VIAL (500 MG) ONE (15:06)
[2020-07-20] MEDS ORDERED: Morphine 2 MG/ML SYRINGE IV PRN (15:13)
[2020-07-20] MEDS ORDERED: Ondansetron ODT 4 mg TAB 4 MG TAB PO PRN (15:13)
[2020-07-20] MEDS ORDERED: diPHENhydraMINE IV 50 MG/ML 1 ml VIAL (BENADRYL) IV PRN (15:13)
[2020-07-20] MEDS ORDERED: Magnesium Hydroxide LIQ 30 ML UDC PO PRN (15:13)
[2020-07-20] MEDS ORDERED: Lactulose 30 ml UDC PO PRN (15:13)
[2020-07-20] MEDS ORDERED: diPHENhydraMINE 25 mg TAB PO PRN (15:13)
[2020-07-20] MEDS ORDERED: fentaNYL 100 mcg/2 ml 50 MCG/ML VIAL ONE ×6 (15:43→17:51)
[2020-07-20] MEDS: HYDROmorphone 1 MG/1 ML SYRINGE IV PRN ×4 (16:24→17:33)
[2020-07-20] MEDS: fentaNYL 100 mcg/2 ml 50 MCG/ML VIAL IV PRN ×7 (16:36→18:28)
[2020-07-20] MEDS ORDERED: Morphine 4 MG/ML VIAL (1 ml) ONE (16:49)
[2020-07-20] MEDS ORDERED: hydrALAZINE 20 mg/ml 1 ML Vial IV IV SLOW PU PRN (16:56)
[2020-07-20] MEDS ORDERED: Dextrose 50% Syringe 50 ml 25 GM/50 ML SYRINGE IV PUSH PRN (16:58)
[2020-07-20] MEDS ORDERED: Acetaminophen IV 1 GM/100ML 100 ML ONE (17:31)
[2020-07-20] MEDS ORDERED: Acetaminophen IV 1 GM/100ML 1,000 MG/100 ML VIAL IVPB ONE (17:32)
[2020-07-20] MEDS ORDERED: Midazolam 2 mg/2 ml VIAL 1 mg/ml 2 ml VIAL (2 mg) IV SLOW PU PRN (17:46)
[2020-07-20] MEDS ORDERED: Midazolam 2 mg/2 ml VIAL 1 mg/ml 2 ml VIAL (2 mg) ONE (17:51)
[2020-07-20] MEDS: Lactated Ringers 1000 ml BAG 1,000 ML IV SCH (19:20)
[2020-07-20] MEDS: Magnesium Hydroxide LIQ 30 ML UDC PO SCH (20:55)
[2020-07-20] MEDS ORDERED: DULoxetine DR 60 mg CAP PO SCH (21:00)
[2020-07-20] MEDS: ceFAZolin 1 GM ADVAN 1 GM in NS 0.9% 50 ML 50 ML IVPB SCH (22:19)
[2020-07-21] MEDS: Lactated Ringers 1000 ml BAG 1,000 ML IV SCH (02:57)
[2020-07-21 05:21] LABS: Hematocrit 33 % (35-47); Hemoglobin 11.3 g/dL (12.0-16.0); Mean Platelet Volume 9.7 fL (7.4-10.4); Platelet Count 165 10^3/uL (150-450)
[2020-07-21 05:41] LABS: BUN/Creatinine Ratio 13.9 (8-20); Calcium 8.5 mg/dL (8.6-10.3); EGFR African American 91.4 (>60); EGFR Non-African American 75.6 (>60); Potassium 4.3 mmol/L (3.5-5.0)
[2020-07-21] MEDS: ceFAZolin 1 GM ADVAN 1 GM in NS 0.9% 50 ML 50 ML IVPB SCH (06:00)
[2020-07-21] MEDS: Magnesium Hydroxide LIQ 30 ML UDC PO SCH (08:09)
[2020-07-21] MEDS ORDERED: CMCS:SitaGLIPtin 100 mg TAB (NF) PO SCH (09:00)
[2020-07-21] MEDS ORDERED: Empaglifozin 10 mg TAB (NF) PO SCH (09:00)
[2020-07-21] MEDS ORDERED: Vitamin THERAPEUTIC TAB PO SCH (09:00)
[2020-07-21] MEDS ORDERED: Nicotine PATCH 7 MG/24 HR PATCH TRANSDERM SCH (10:00)
[2020-07-21 11:00] VITALS: BP 96/52
== END 2020-07-21 13:05 | disposition home or self-care (01) ==
LOC: OR 12:17 → SSU 12:17
PROVIDERS: ADMIT Orthopaedic Surgery Adult Reconstructive Orthopaedic Surgery; ATTEND Orthopaedic Surgery Adult Reconstructive Orthopaedic Surgery

== ENCOUNTER 2020-09-26 11:50 | Observation (INO) ==
[~2020-09-26 11:50] MED LIST changes: -Bupivacaine 0.5% SDV PF 30ML VIAL ONE; +Levalbuterol 0.63MG/3ML NEB UNIT OF USE INH ONE; -Lidocaine 2% PF 5 ML VIAL ONE; -Ondansetron 4 mg VIAL 2 MG/ML 2 ml VIAL ONE; -Propofol 10 MG/ML 20 ML BTL ONE
[2020-09-26] MEDS ORDERED: Levalbuterol 0.63MG/3ML NEB UNIT OF USE INH ONE (12:13)
[2020-09-26] MEDS ORDERED: ceFAZolin 2 GM PREMIX 2 GM/50 ML BAG ONE (12:14)
[2020-09-26] MEDS ORDERED: Famotidine IV 10 MG/ML 2 ml VIAL (20 mg) ONE (12:14)
[2020-09-26] MEDS ORDERED: Ondansetron 4 mg VIAL 2 MG/ML 2 ml VIAL ONE (12:17)
[2020-09-26] MEDS ORDERED: Dexamethasone IV 4 MG/ML VIAL 1 ml VIAL ONE (12:17)
[2020-09-26] MEDS ORDERED: Lidocaine 2% PF 5 ML VIAL ONE ×2 (12:17→13:20)
[2020-09-26] MEDS ORDERED: Midazolam 2 mg/2 ml VIAL 1 mg/ml 2 ml VIAL (2 mg) ONE ×2 (12:18→13:20)
[2020-09-26] MEDS ORDERED: fentaNYL 100 mcg/2 ml 50 MCG/ML VIAL ONE ×4 (12:18→18:19)
[2020-09-26] MEDS ORDERED: Ketamine HCL 50 mg/ml 10 ml VIAL (500 MG) ONE (12:21)
[2020-09-26] MEDS ORDERED: Ropivacaine 5 MG/ML 20 ML VIAL 0.5% (100 MG) ONE ×2 (12:42→14:31)
[2020-09-26] MEDS ORDERED: Lidocaine 1% MPF 5 ML VIAL ONE (12:42)
[2020-09-26] MEDS ORDERED: ROPIVACAINE 5 MG/ML 30 ML BTL (0.5%) ONE (13:20)
[2020-09-26] MEDS ORDERED: Propofol 10 MG/ML 20 ML BTL ONE (13:27)
[2020-09-26] MEDS ORDERED: fentaNYL 250 mcg/5 ml 50 MCG/ML 5 ml VIAL (250 MCG) ONE (13:29)
[2020-09-26] MEDS ORDERED: Rocuronium 50 mg VIAL 10 mg/ml 5 ml VIAL (50 mg) ONE (14:10)
[2020-09-26] MEDS ORDERED: HYDROmorphone 1 MG/1 ML SYRINGE ONE (15:12)
[2020-09-26] MEDS ORDERED: Ondansetron 4 mg VIAL 2 MG/ML 2 ml VIAL IV PRN ×2 (16:43→16:45)
[2020-09-26] MEDS ORDERED: Naloxone 0.4 mg VIAL 0.4 mg/ml 1 ml VIAL IV PRN (16:43)
[2020-09-26] MEDS ORDERED: Lactulose 30 ml UDC PO PRN (16:45)
[2020-09-26] MEDS ORDERED: Morphine 2 MG/ML SYRINGE IV PRN (16:45)
[2020-09-26] MEDS ORDERED: diPHENhydraMINE 25 mg TAB PO PRN (16:45)
[2020-09-26] MEDS ORDERED: diPHENhydraMINE IV 50 MG/ML 1 ml VIAL (BENADRYL) IV PRN (16:45)
[2020-09-26] MEDS ORDERED: oxyCODONE/Acetamin 5/325 mg TAB PO PRN ×2 (16:45→19:10)
[2020-09-26] MEDS ORDERED: Magnesium Hydroxide LIQ 30 ML UDC PO PRN (16:45)
[2020-09-26] MEDS ORDERED: Ondansetron ODT 4 mg TAB 4 MG TAB PO PRN (16:45)
[2020-09-26] MEDS ORDERED: Albuterol HFA INHALER 8 gm MDI INH PRN (16:51)
[2020-09-26] MEDS: fentaNYL 100 mcg/2 ml 50 MCG/ML VIAL IV PRN ×5 (17:07→18:29)
[2020-09-26] MEDS ORDERED: Dextrose 50% Syringe 50 ml 25 GM/50 ML SYRINGE IV PUSH PRN (18:59)
[2020-09-26] MEDS ORDERED: HYDROcodone/ACETAMIN 5/325 mg TAB PO PRN (19:07)
[2020-09-26] MEDS: Lactated Ringers 1000 ml BAG 1,000 ML IV SCH (20:18)
[2020-09-26] MEDS: Magnesium Hydroxide LIQ 30 ML UDC PO SCH (20:43)
[2020-09-26] MEDS ORDERED: DULoxetine DR 60 mg CAP PO SCH (21:00)
[2020-09-26] MEDS: ceFAZolin 1 GM ADVAN 1 GM in NS 0.9% 50 ML 50 ML IVPB SCH (22:40)
[2020-09-27] MEDS: Lactated Ringers 1000 ml BAG 1,000 ML IV SCH (06:34)
[2020-09-27] MEDS: ceFAZolin 1 GM ADVAN 1 GM in NS 0.9% 50 ML 50 ML IVPB SCH ×2 (06:34→15:05)
[2020-09-27 06:35] LABS: Hematocrit 38 % (35-47); Hemoglobin 12.7 g/dL (12.0-16.0); Mean Platelet Volume 10.1 fL (7.4-10.4); Platelet Count 173 10^3/uL (150-450)
[2020-09-27 06:51] LABS: BUN/Creatinine Ratio 19.2 (8-20); Calcium 8.6 mg/dL (8.6-10.3); EGFR African American 148.1 (>60); EGFR Non-African American 122.4 (>60); Potassium 4.1 mmol/L (3.5-5.0)
[2020-09-27] MEDS ORDERED: Sitagliptin 50 mg TAB (NF) PO SCH (09:00)
[2020-09-27] MEDS ORDERED: Empaglifozin 10 mg TAB (NF) PO SCH (09:00)
[2020-09-27] MEDS ORDERED: Vitamin THERAPEUTIC TAB PO SCH (09:00)
[2020-09-27] MEDS: Magnesium Hydroxide LIQ 30 ML UDC PO SCH (09:18)
[2020-09-27 16:20] VITALS: BP 112/68
[2020-09-29] MEDS ORDERED: Scopolamine PATCH Remove NOTE PATCH OFF ONE (06:00)
== END 2020-09-27 16:00 | disposition home or self-care (01) ==
LOC: OR 11:50 → SSU 11:50
PROVIDERS: ADMIT Orthopaedic Surgery Adult Reconstructive Orthopaedic Surgery; ATTEND Orthopaedic Surgery Adult Reconstructive Orthopaedic Surgery

== ENCOUNTER 2023-02-24 18:20 | Inpatient (IN) ==
[2023-02-24] MEDS ORDERED: Lactated Ringers 1000 ml BAG 1,000 ML IV ONE ×2 (18:41→20:47)
[2023-02-24] MEDS ORDERED: Ondansetron ODT 4 mg TAB 4 MG TAB PO ONE (18:43)
[2023-02-24 19:00] LABS: ABS Basophils 0.1 10^3/uL (0.0-0.1); ABS Eosinophils 0.1 10^3/uL (0.0-0.5); ABS Lymphocytes 2.1 10^3/uL (1.0-4.8); ABS Monocytes 0.8 10^3/uL (0.0-0.9); ABS Neutrophils 8.7 10^3/uL (1.5-7.6); ABS Nucleated RBC 0.01 10^3/ul; Eosinophil % 0.6 %; Hemoglobin 10.9 g/dL (11.5-14.3); Lymphocyte % 18.1 %; Mean Corpuscular Hemoglobin 27.1 pg (27-33); Mean Corpuscular Hgb Conc 34.1 g/dL (31-36); Mean Corpuscular Volume 79.6 fL (80-97); Mean Platelet Volume 7.6 fL (7.5-11.2); Nucleated Red Blood Cells % 0.1 /100 WBC (0.0-0.4); Platelet Count 599 10^3/uL (150-450); Red Blood Count 4.02 10^6/uL (3.63-4.92); Red Cell Distribution Width 14.5 % (12-17); White Blood Count 11.7 10^3/uL (3.8-11.8)
[2023-02-24 19:19] LABS: Albumin 2.7 g/dL (3.2-5.2); Albumin/Globulin Ratio 0.7 (1-3); C Reactive Protein 210.52 mg/L (<8.01); Calcium 7.6 mg/dL (8.6-10.3); Creatinine, Serum 0.58 mg/dL (0.51-0.95); Globulin 3.8 g/dL (2-4); Magnesium 1.8 mg/dL (1.9-2.7); Total Bilirubin 0.5 mg/dL (0.2-1.0); Total Protein 6.5 g/dL (6.4-8.9); eGFR CKD-EPI 105.5 (>60)
[2023-02-24 19:21] LABS: Urine Appearance Clear; Urine Bilirubin Negative (Negative); Urine Blood Negative (Negative); Urine Color Yellow; Urine Glucose 3+(>=500 mg/dL) (Negative); Urine Ketones Negative (Negative); Urine Nitrite Negative (Negative); Urine Protein Negative (Negative); Urine Urobilinogen Negative (Negative)
[2023-02-24 19:23] LABS: Potassium 1.8 mmol/L (3.5-5.0)
[2023-02-24] MEDS ORDERED: Potassium Chlor 20 meq TAB.ER PO ONE (19:29)
[2023-02-24] MEDS: KCL 20 MEQ/100 ML IVPREMIX 20 MEQ/100 ML BAG IV SCH ×2 (21:02→23:56)
[2023-02-24] MEDS ORDERED: Iodixanol (CONTRAST) 320 MG/ML 100 ML SDV IV ONE (21:19)
[2023-02-24] MEDS: DULoxetine DR 60 mg CAP PO SCH (23:56)
[2023-02-24] MEDS: HYDROcodone/Acetamin 10/325 TAB (NF) PO PRN (23:57)
[2023-02-25] MEDS ORDERED: Dextrose 50% Syringe 50 ml 25 GM/50 ML SYRINGE IV PUSH PRN (00:01)
[2023-02-25 00:22] LABS: Potassium 2.2 mmol/L (3.5-5.0)
[2023-02-25] MEDS: NS 0.9% 1000 ml BAG 1,000 ML IV SCH ×3 (01:27→21:17)
[2023-02-25] MEDS: KCL 20 MEQ/100 ML IVPREMIX 20 MEQ/100 ML BAG IV SCH ×5 (02:24→13:08)
[2023-02-25 06:07] LABS: ABS Basophils 0.1 10^3/uL (0.0-0.1); ABS Eosinophils 0.2 10^3/uL (0.0-0.5); ABS Lymphocytes 1.7 10^3/uL (1.0-4.8); ABS Monocytes 0.8 10^3/uL (0.0-0.9); ABS Neutrophils 6.4 10^3/uL (1.5-7.6); Eosinophil % 1.7 %; Hematocrit 26.9 % (35-45); Hemoglobin 9.1 g/dL (11.5-14.3); Lymphocyte % 18.8 %; Mean Corpuscular Hemoglobin 27.4 pg (27-33); Mean Corpuscular Volume 80.6 fL (80-97); Mean Platelet Volume 7.7 fL (7.5-11.2); Platelet Count 412 10^3/uL (150-450); Red Blood Count 3.34 10^6/uL (3.63-4.92); Red Cell Distribution Width 14.2 % (12-17); White Blood Count 9.2 10^3/uL (3.8-11.8)
[2023-02-25 06:23] LABS: C Reactive Protein 161.41 mg/L (<8.01); Calcium 7.5 mg/dL (8.6-10.3); Creatinine, Serum 0.54 mg/dL (0.51-0.95); Magnesium 1.9 mg/dL (1.9-2.7); eGFR CKD-EPI 107.3 (>60)
[2023-02-25 06:25] LABS: Potassium 2.4 mmol/L (3.5-5.0)
[2023-02-25 07:20] LABS: Ferritin 109.7 ng/mL (11-307)
[2023-02-25 07:24] LABS: Folate 8.99 ng/mL (5.90-24.80)
[2023-02-25] MEDS ORDERED: Potassium Chloride LIQUID 20 MEQ/15 ML LIQUID PO ONE ×3 (07:30→10:00)
[2023-02-25] MEDS: HYDROcodone/Acetamin 10/325 TAB (NF) PO PRN ×4 (08:27→21:19)
[2023-02-25] MEDS: DULoxetine DR 60 mg CAP PO SCH ×2 (08:33→19:54)
[2023-02-25] MEDS: Aspirin EC 81 mg TAB.EC (enteric coated) PO SCH (08:33)
[2023-02-25] MEDS ORDERED: DULoxetine DR 60 mg CAP PO SCH (09:00)
[2023-02-25] MEDS ORDERED: Potassium Chlor 20 meq TAB.ER PO ONE ×3 (10:38→13:00)
[2023-02-25] MEDS ORDERED: Nicotine GUM 4MG FRUIT FLAVOR PO PRN (10:39)
[2023-02-25] MEDS: Nicotine PATCH 21 MG/24 HR PATCH TRANSDERM SCH (10:58)
[2023-02-25] MEDS ORDERED: HYDROmorphone 1 MG/1 ML SYRINGE IV PRN (11:16)
[2023-02-25] MEDS ORDERED: Ondansetron 4 mg VIAL 2 MG/ML 2 ml VIAL IV PRN (11:17)
[2023-02-25 12:27] LABS: INR 1.2 (0.83-1.13)
[2023-02-25] MEDS: PILOCARPINE 5 MG PO SCH ×2 (13:04→19:54)
[2023-02-25 16:52] LABS: Calcium 7.7 mg/dL (8.6-10.3); Creatinine, Serum 0.5 mg/dL (0.51-0.95); Potassium 2.9 mmol/L (3.5-5.0); eGFR CKD-EPI 109.3 (>60)
[2023-02-26] MEDS: HYDROcodone/Acetamin 10/325 TAB (NF) PO PRN ×4 (02:22→15:56)
[2023-02-26] MEDS: NS 0.9% 1000 ml BAG 1,000 ML IV SCH (07:28)
[2023-02-26] MEDS: Nicotine PATCH 21 MG/24 HR PATCH TRANSDERM SCH (08:51)
[2023-02-26] MEDS: DULoxetine DR 60 mg CAP PO SCH ×2 (08:53→19:59)
[2023-02-26] MEDS: Aspirin EC 81 mg TAB.EC (enteric coated) PO SCH (08:53)
[2023-02-26 09:16] LABS: ABS Eosinophils 0.1 10^3/uL (0.0-0.5); ABS Lymphocytes 1.7 10^3/uL (1.0-4.8); ABS Monocytes 0.9 10^3/uL (0.0-0.9); ABS Neutrophils 7.2 10^3/uL (1.5-7.6); Eosinophil % 1.2 %; Hematocrit 26.7 % (35-45); Hemoglobin 8.8 g/dL (11.5-14.3); Lymphocyte % 17.1 %; Mean Corpuscular Hemoglobin 26.8 pg (27-33); Mean Corpuscular Hgb Conc 33.1 g/dL (31-36); Mean Platelet Volume 7.7 fL (7.5-11.2); Platelet Count 359 10^3/uL (150-450); Red Blood Count 3.29 10^6/uL (3.63-4.92); Red Cell Distribution Width 14.3 % (12-17); White Blood Count 9.9 10^3/uL (3.8-11.8)
[2023-02-26] MEDS: PILOCARPINE 5 MG PO SCH ×3 (09:16→22:04)
[2023-02-26 09:30] LABS: Calcium 7.1 mg/dL (8.6-10.3); Creatinine, Serum 0.52 mg/dL (0.51-0.95); eGFR CKD-EPI 108.3 (>60)
[2023-02-26 09:46] LABS: Potassium 2.4 mmol/L (3.5-5.0)
[2023-02-26] MEDS ORDERED: Potassium Chloride LIQUID 20 MEQ/15 ML LIQUID PO ONE (10:39)
[2023-02-26 11:09] LABS: Magnesium 1.5 mg/dL (1.9-2.7)
[2023-02-26] MEDS ORDERED: Magnesium Sulf 4 GM/100 ML IV 4,000 MG/100 ML BAG IVPB ONE (11:36)
[2023-02-26] MEDS ORDERED: Iodixanol (CONTRAST) 320 MG/ML 100 ML SDV IV ONE (12:27)
[2023-02-26] MEDS ORDERED: Potassium Chlor 20 meq TAB.ER PO ONE (13:00)
[2023-02-26] MEDS ORDERED: Enoxaparin 40 MG/0.4 ML SYR SUBCUT ONE (14:47)
[2023-02-26] MEDS: KCL 20 MEQ/100 ML IVPREMIX 20 MEQ/100 ML BAG IV SCH ×2 (15:31→20:08)
[2023-02-26 17:40] LABS: Calcium 7.5 mg/dL (8.6-10.3); Creatinine, Serum 0.45 mg/dL (0.51-0.95); Magnesium 2.4 mg/dL (1.9-2.7); Potassium 3.7 mmol/L (3.5-5.0); eGFR CKD-EPI 112.1 (>60)
[2023-02-26] MEDS ORDERED: KCL 20 MEQ/100 ML IVPREMIX 20 MEQ/100 ML BAG ONE (19:38)
[2023-02-27 06:27] LABS: ABS Lymphocytes 1.3 10^3/uL (1.0-4.8); ABS Neutrophils 10.2 10^3/uL (1.5-7.6); Eosinophil % 0.4 %; Hematocrit 26.4 % (35-45); Hemoglobin 8.8 g/dL (11.5-14.3); Lymphocyte % 10.6 %; Mean Corpuscular Hemoglobin 26.5 pg (27-33); Mean Corpuscular Hgb Conc 33.2 g/dL (31-36); Mean Platelet Volume 8.1 fL (7.5-11.2); Platelet Count 368 10^3/uL (150-450); Red Blood Count 3.31 10^6/uL (3.63-4.92); Red Cell Distribution Width 14.2 % (12-17); White Blood Count 12.7 10^3/uL (3.8-11.8)
[2023-02-27 06:48] LABS: Calcium 7.2 mg/dL (8.6-10.3); Creatinine, Serum 1.2 mg/dL (0.51-0.95); eGFR CKD-EPI 52.8 (>60)
[2023-02-27 06:55] LABS: Potassium 2.4 mmol/L (3.5-5.0)
[2023-02-27] MEDS ORDERED: fentaNYL 100 mcg/2 ml 50 MCG/ML VIAL ONE (08:23)
[2023-02-27 08:32] LABS: Magnesium 1.8 mg/dL (1.9-2.7)
[2023-02-27] MEDS ORDERED: Magnesium Sulfate 2 gm BAG 2 GM/50 ML BAG IVPB ONE (08:35)
[2023-02-27] MEDS ORDERED: Potassium Chloride LIQUID 20 MEQ/15 ML LIQUID PO ONE (08:35)
[2023-02-27] MEDS: Aspirin EC 81 mg TAB.EC (enteric coated) PO SCH (09:48)
[2023-02-27] MEDS: DULoxetine DR 60 mg CAP PO SCH ×2 (09:48→21:09)
[2023-02-27] MEDS: PILOCARPINE 5 MG PO SCH ×3 (09:49→21:10)
[2023-02-27] MEDS: Nicotine PATCH 21 MG/24 HR PATCH TRANSDERM SCH (09:57)
[2023-02-27 10:34] LABS: Calcium 7.7 mg/dL (8.6-10.3); Creatinine, Serum 0.43 mg/dL (0.51-0.95); Potassium 2.9 mmol/L (3.5-5.0); eGFR CKD-EPI 113.4 (>60)
[2023-02-27] MEDS ORDERED: Potassium Chlor 20 meq TAB.ER PO ONE (10:37)
[2023-02-27] MEDS: KCL 20 MEQ/100 ML IVPREMIX 20 MEQ/100 ML BAG IV SCH ×2 (12:03→14:38)
[2023-02-27 12:22] LABS: Beta 2 Microglobulin 3.41 mcg/mL
[2023-02-27] MEDS: HYDROcodone/Acetamin 10/325 TAB (NF) PO PRN ×2 (12:57→21:10)
[2023-02-28] MEDS: HYDROcodone/Acetamin 10/325 TAB (NF) PO PRN (02:35)
[2023-02-28 06:21] LABS: ABS Basophils 0.1 10^3/uL (0.0-0.1); ABS Eosinophils 0.1 10^3/uL (0.0-0.5); ABS Lymphocytes 1.4 10^3/uL (1.0-4.8); ABS Monocytes 0.7 10^3/uL (0.0-0.9); ABS Neutrophils 6.3 10^3/uL (1.5-7.6); ABS Nucleated RBC 0.01 10^3/ul; Eosinophil % 1.8 %; Hematocrit 26.8 % (35-45); Hemoglobin 8.9 g/dL (11.5-14.3); Lymphocyte % 15.9 %; Mean Corpuscular Hemoglobin 26.7 pg (27-33); Mean Corpuscular Hgb Conc 33.3 g/dL (31-36); Mean Corpuscular Volume 80.1 fL (80-97); Mean Platelet Volume 7.7 fL (7.5-11.2); Nucleated Red Blood Cells % 0.1 /100 WBC (0.0-0.4); Platelet Count 379 10^3/uL (150-450); Red Blood Count 3.34 10^6/uL (3.63-4.92); Red Cell Distribution Width 14.3 % (12-17); White Blood Count 8.5 10^3/uL (3.8-11.8)
[2023-02-28 06:43] LABS: Calcium 7.6 mg/dL (8.6-10.3); Creatinine, Serum 0.49 mg/dL (0.51-0.95); eGFR CKD-EPI 109.9 (>60)
[2023-02-28 06:58] LABS: Potassium 2.7 mmol/L (3.5-5.0)
[2023-02-28] MEDS ORDERED: KCL 20 MEQ/100 ML IVPREMIX 20 MEQ/100 ML BAG IV ONE ×2 (07:12→10:00)
[2023-02-28 07:30] LABS: Magnesium 1.7 mg/dL (1.9-2.7)
[2023-02-28] MEDS: Aspirin EC 81 mg TAB.EC (enteric coated) PO SCH (08:19)
[2023-02-28] MEDS: DULoxetine DR 60 mg CAP PO SCH ×2 (08:19→20:31)
[2023-02-28] MEDS: PILOCARPINE 5 MG PO SCH ×3 (08:20→20:32)
[2023-02-28] MEDS: Nicotine PATCH 21 MG/24 HR PATCH TRANSDERM SCH (08:21)
[2023-02-28] MEDS ORDERED: Potassium Chlor 20 meq TAB.ER PO ONE (08:32)
[2023-02-28] MEDS ORDERED: Magnesium Sulfate 2 gm BAG 2 GM/50 ML BAG IVPB ONE (08:32)
[2023-02-28] MEDS ORDERED: Lidocaine 1% MPF 5 ML VIAL INJ ONE (10:02)
[2023-02-28 11:29] LABS: Albumin 1.6 g/dL (3.4-4.7); Flag, M-protein Isotype Negative (Negative); Total Protein 5.2 g/dL (6.3 - 7.9)
[2023-02-28 18:57] LABS: CA 19-9 10 U/mL (<35)
[2023-02-28] MEDS: Enoxaparin 40 MG/0.4 ML SYR SUBCUT SCH (20:32)
[2023-02-28 20:39] LABS: Cancer Ag (CA 125), S 12 U/mL (<46)
[2023-02-28 20:43] LABS: Calcium 7.6 mg/dL (8.6-10.3); Creatinine, Serum 0.58 mg/dL (0.51-0.95); Magnesium 2.2 mg/dL (1.9-2.7); Potassium 3.7 mmol/L (3.5-5.0); eGFR CKD-EPI 105.5 (>60)
[2023-03-01 06:50] LABS: ABS Basophils 0.1 10^3/uL (0.0-0.1); ABS Eosinophils 0.1 10^3/uL (0.0-0.5); ABS Lymphocytes 1.4 10^3/uL (1.0-4.8); ABS Monocytes 0.9 10^3/uL (0.0-0.9); ABS Neutrophils 4.7 10^3/uL (1.5-7.6); ABS Nucleated RBC 0.01 10^3/ul; Eosinophil % 1.4 %; Hematocrit 25.4 % (35-45); Hemoglobin 8.7 g/dL (11.5-14.3); Mean Corpuscular Hemoglobin 27.2 pg (27-33); Mean Corpuscular Hgb Conc 34.1 g/dL (31-36); Mean Corpuscular Volume 79.7 fL (80-97); Mean Platelet Volume 7.6 fL (7.5-11.2); Nucleated Red Blood Cells % 0.1 /100 WBC (0.0-0.4); Platelet Count 381 10^3/uL (150-450); Red Blood Count 3.19 10^6/uL (3.63-4.92); White Blood Count 7.2 10^3/uL (3.8-11.8)
[2023-03-01 07:02] LABS: Calcium 7.4 mg/dL (8.6-10.3); Creatinine, Serum 0.43 mg/dL (0.51-0.95); Magnesium 1.8 mg/dL (1.9-2.7); Potassium 2.9 mmol/L (3.5-5.0); eGFR CKD-EPI 113.4 (>60)
[2023-03-01] MEDS ORDERED: Potassium Chlor 20 meq TAB.ER PO ONE (07:17)
[2023-03-01] MEDS ORDERED: Magnesium Sulfate 2 gm BAG 2 GM/50 ML BAG IVPB ONE (07:17)
[2023-03-01] MEDS: Nicotine PATCH 21 MG/24 HR PATCH TRANSDERM SCH (08:46)
[2023-03-01] MEDS: DULoxetine DR 60 mg CAP PO SCH ×2 (08:46→21:27)
[2023-03-01] MEDS: Aspirin EC 81 mg TAB.EC (enteric coated) PO SCH (08:47)
[2023-03-01] MEDS: PILOCARPINE 5 MG PO SCH ×3 (08:47→21:29)
[2023-03-01] MEDS: KCL 20 MEQ/100 ML IVPREMIX 20 MEQ/100 ML BAG IV SCH ×2 (10:10→13:28)
[2023-03-01] MEDS: Enoxaparin 40 MG/0.4 ML SYR SUBCUT SCH (21:30)
[2023-03-02 06:43] LABS: ABS Basophils 0.1 10^3/uL (0.0-0.1); ABS Eosinophils 0.1 10^3/uL (0.0-0.5); ABS Lymphocytes 1.2 10^3/uL (1.0-4.8); ABS Monocytes 0.7 10^3/uL (0.0-0.9); ABS Neutrophils 5.9 10^3/uL (1.5-7.6); Eosinophil % 1.5 %; Hematocrit 25.3 % (35-45); Hemoglobin 8.5 g/dL (11.5-14.3); Lymphocyte % 15.2 %; Mean Corpuscular Hgb Conc 33.5 g/dL (31-36); Mean Corpuscular Volume 80.4 fL (80-97); Mean Platelet Volume 7.7 fL (7.5-11.2); Platelet Count 374 10^3/uL (150-450); Red Blood Count 3.14 10^6/uL (3.63-4.92); Red Cell Distribution Width 14.4 % (12-17)
[2023-03-02 07:01] LABS: Calcium 7.5 mg/dL (8.6-10.3); Creatinine, Serum 0.44 mg/dL (0.51-0.95); Magnesium 1.8 mg/dL (1.9-2.7); Potassium 3.3 mmol/L (3.5-5.0); eGFR CKD-EPI 112.7 (>60)
[2023-03-02] MEDS: DULoxetine DR 60 mg CAP PO SCH ×2 (07:53→21:47)
[2023-03-02] MEDS: Aspirin EC 81 mg TAB.EC (enteric coated) PO SCH (07:53)
[2023-03-02] MEDS: Nicotine PATCH 21 MG/24 HR PATCH TRANSDERM SCH (07:53)
[2023-03-02] MEDS: Potassium Chlor 20 meq TAB.ER PO SCH ×3 (08:13→16:12)
[2023-03-02] MEDS: PILOCARPINE 5 MG PO SCH ×3 (08:14→21:48)
[2023-03-02] MEDS: Enoxaparin 40 MG/0.4 ML SYR SUBCUT SCH (21:49)
[2023-03-03] MEDS ORDERED: Calcium Carb (TUMS) 500 mg CHEW TAB PO ONE (01:03)
[2023-03-03 08:08] LABS: ABS Basophils 0.1 10^3/uL (0.0-0.1); ABS Eosinophils 0.2 10^3/uL (0.0-0.5); ABS Lymphocytes 1.7 10^3/uL (1.0-4.8); ABS Monocytes 0.8 10^3/uL (0.0-0.9); ABS Neutrophils 6.2 10^3/uL (1.5-7.6); Eosinophil % 1.8 %; Hematocrit 27.3 % (35-45); Hemoglobin 9.2 g/dL (11.5-14.3); Lymphocyte % 18.5 %; Mean Corpuscular Hemoglobin 26.8 pg (27-33); Mean Corpuscular Hgb Conc 33.5 g/dL (31-36); Mean Corpuscular Volume 80.1 fL (80-97); Mean Platelet Volume 7.4 fL (7.5-11.2); Platelet Count 455 10^3/uL (150-450); Red Blood Count 3.41 10^6/uL (3.63-4.92); Red Cell Distribution Width 14.8 % (12-17); White Blood Count 8.9 10^3/uL (3.8-11.8)
[2023-03-03 08:41] LABS: Calcium 8.3 mg/dL (8.6-10.3); Creatinine, Serum 0.55 mg/dL (0.51-0.95); Magnesium 1.8 mg/dL (1.9-2.7); Potassium 3.8 mmol/L (3.5-5.0); eGFR CKD-EPI 106.8 (>60)
[2023-03-03] MEDS: PILOCARPINE 5 MG PO SCH ×2 (09:32→13:25)
[2023-03-03] MEDS: DULoxetine DR 60 mg CAP PO SCH (09:32)
[2023-03-03] MEDS: Aspirin EC 81 mg TAB.EC (enteric coated) PO SCH (09:33)
[2023-03-03] MEDS: Nicotine PATCH 21 MG/24 HR PATCH TRANSDERM SCH (09:35)
[2023-03-03 14:59] VITALS: BP 133/61
== END 2023-03-03 15:20 | disposition home or self-care (01) | DRG 815 ==
LOC: ED 18:20 → INTOOBSV 23:43 → EDHOLD 23:43 → SUATTDRO 23:43 → SSU 02-25 10:26 → SUATTDRO 02-26 15:03
PROVIDERS: ADMIT Student in an Organized Health Care Education/Training Program; ATTEND Internal Medicine

== ENCOUNTER 2023-06-11 17:31 | Inpatient (IN) ==
[2023-06-11] MEDS ORDERED: Potassium EFFERVES 25 meq TAB PO ONE (17:59)
[2023-06-11 18:08] LABS: ABS Basophils 0.1 10^3/uL (0.0-0.1); ABS Eosinophils 0.1 10^3/uL (0.0-0.5); ABS Lymphocytes 1.8 10^3/uL (1.0-4.8); ABS Monocytes 1.1 10^3/uL (0.0-0.9); ABS Neutrophils 10.5 10^3/uL (1.5-7.6); ABS Nucleated RBC 0.01 10^3/ul; Eosinophil % 0.6 %; Hematocrit 29.4 % (35-45); Hemoglobin 9.5 g/dL (11.5-14.3); Lymphocyte % 13.3 %; Mean Corpuscular Hemoglobin 24.6 pg (27-33); Mean Corpuscular Hgb Conc 32.4 g/dL (31-36); Mean Corpuscular Volume 75.9 fL (80-97); Mean Platelet Volume 7.7 fL (7.5-11.2); Platelet Count 691 10^3/uL (150-450); Red Blood Count 3.87 10^6/uL (3.63-4.92); White Blood Count 13.6 10^3/uL (3.8-11.8)
[2023-06-11 18:28] LABS: INR 1.33 (0.83-1.13)
[2023-06-11 18:34] LABS: Albumin/Globulin Ratio 0.7 (1-3); Calcium 8.5 mg/dL (8.6-10.3); Creatinine, Serum 0.6 mg/dL (0.51-0.95); Globulin 4.3 g/dL (2-4); Total Bilirubin 0.4 mg/dL (0.2-1.0); Total Protein 7.3 g/dL (6.4-8.9)
[2023-06-11 18:36] LABS: Potassium 1.9 mmol/L (3.5-5.0)
[2023-06-11] MEDS ORDERED: Magnesium Sulfate 2 gm BAG 2 GM/50 ML BAG IVPB ONE (19:10)
[2023-06-11] MEDS: KCL 20 MEQ/100 ML IVPREMIX 20 MEQ/100 ML BAG IV SCH ×2 (19:27→22:26)
[2023-06-11 19:43] LABS: Magnesium 1.8 mg/dL (1.9-2.7)
[2023-06-11 20:16] LABS: High Sensitivity Troponin 1 Hr 6 pg/mL (<15)
[2023-06-12 00:58] LABS: Calcium 7.5 mg/dL (8.6-10.3); Creatinine, Serum 0.47 mg/dL (0.51-0.95); Potassium 2.6 mmol/L (3.5-5.0); eGFR CKD-EPI 110.3 (>60)
[2023-06-12] MEDS ORDERED: Lactated Ringers 1000 ml BAG 1,000 ML IV ONE (00:58)
[2023-06-12] MEDS ORDERED: Dextrose 50% Syringe 50 ml 25 GM/50 ML SYRINGE IV PUSH PRN (03:39)
[2023-06-12] MEDS ORDERED: NS 0.9% 1000 ml BAG 1,000 ML IV SCH ×2 (03:45→04:04)
[2023-06-12] MEDS ORDERED: Nicotine Lozenge mini 2 MG LOZNG.MINI MT PRN (03:53)
[2023-06-12] MEDS: Heparin 5000 UNITS/ML 1 mL VIAL SUBCUT SCH ×3 (05:40→20:30)
[2023-06-12 06:03] LABS: ABS Basophils 0.1 10^3/uL (0.0-0.1); ABS Eosinophils 0.1 10^3/uL (0.0-0.5); ABS Lymphocytes 1.4 10^3/uL (1.0-4.8); ABS Monocytes 0.9 10^3/uL (0.0-0.9); ABS Neutrophils 8.5 10^3/uL (1.5-7.6); Hematocrit 23.6 % (35-45); Hemoglobin 7.7 g/dL (11.5-14.3); Lymphocyte % 12.5 %; Mean Corpuscular Hemoglobin 24.9 pg (27-33); Mean Corpuscular Hgb Conc 32.4 g/dL (31-36); Mean Corpuscular Volume 76.7 fL (80-97); Mean Platelet Volume 7.8 fL (7.5-11.2); Platelet Count 456 10^3/uL (150-450); Red Blood Count 3.08 10^6/uL (3.63-4.92); Red Cell Distribution Width 16.5 % (12-17)
[2023-06-12 06:39] LABS: Calcium 7.3 mg/dL (8.6-10.3); Creatinine, Serum 0.46 mg/dL (0.51-0.95); Magnesium 2.2 mg/dL (1.9-2.7); Phosphorus 2.8 mg/dL (2.5-5.0); eGFR CKD-EPI 110.9 (>60)
[2023-06-12 06:40] LABS: Potassium 2.5 mmol/L (3.5-5.0)
[2023-06-12] MEDS ORDERED: Potassium EFFERVES 25 meq TAB PO ONE (06:52)
[2023-06-12] MEDS: KCL 20 MEQ/100 ML IVPREMIX 20 MEQ/100 ML BAG IV SCH ×4 (07:28→20:05)
[2023-06-12] MEDS ORDERED: Lactated Ringers 1000 ml BAG 1,000 ML IV SCH (08:00)
[2023-06-12] MEDS ORDERED: Piperacillin/Tazobac 3.375 BAG 3.375 GM/100 ML BAG IV ONE (08:46)
[2023-06-12] MEDS ORDERED: Zosyn per Pharmacy NOTE FOLLOW UP SCH (09:00)
[2023-06-12] MEDS: Aspirin EC 81 mg TAB.EC (enteric coated) PO SCH (09:46)
[2023-06-12] MEDS: Potassium EFFERVES 25 meq TAB PO SCH ×2 (10:15→20:34)
[2023-06-12] MEDS: DULoxetine DR 60 mg CAP PO SCH ×2 (10:47→20:30)
[2023-06-12] MEDS: CMCS:SitaGLIPtin 100 mg TAB (NF) PO SCH (10:47)
[2023-06-12] MEDS: Nicotine PATCH 14 MG/24 HR PATCH TRANSDERM SCH (10:47)
[2023-06-12 11:27] LABS: Anion Gap 7 mmol/L (2-16); Blood Urea Nitrogen 4 mg/dL (6-24); CO2 Carbon Dioxide 34 mmol/L (22-32); Calcium 7.6 mg/dL (8.6-10.3); Chloride 96 mmol/L (101-111); Creatinine, Serum 0.43 mg/dL (0.51-0.95); Glucose 121 mg/dL (70-100); Lipase < 10 U/L (11.0-82.0); Potassium 2.8 mmol/L (3.5-5.0); Sodium 137 mmol/L (135-145); eGFR CKD-EPI 112.7 (>60)
[2023-06-12] MEDS ORDERED: Hydrocortisone INJ 100 MG/2ML 2 ML VIAL IV ONE (11:53)
[2023-06-12 12:10] LABS: C Reactive Protein 211.04 mg/L (<8.01)
[2023-06-12] MEDS ORDERED: ZOSYN 3.375 GM Q8H per EXTENDED INFUSION IV SCH (14:00)
[2023-06-12] MEDS: CALCIUM GLUCONATE 1GM/50ML NS 1 GM/50 ML BAG IV SCH ×2 (14:28→16:03)
[2023-06-12] MEDS: ZOSYN 3.375 GM Q8H per EXTENDED INFUSION IV SCH ×2 (15:07→23:48)
[2023-06-12 15:42] LABS: Immature Retic Fraction 0.43
[2023-06-12 15:58] LABS: RBC Retic Count 3.76 10^6/ul (3.63-4.92)
[2023-06-12 16:11] LABS: Calcium 7.8 mg/dL (8.6-10.3); Creatinine, Serum 0.4 mg/dL (0.51-0.95); eGFR CKD-EPI 114.7 (>60)
[2023-06-12 17:28] LABS: Urine Appearance Clear; Urine Bilirubin Negative (Negative); Urine Blood 1+ (Negative); Urine Color Yellow; Urine Glucose 3+(>=500 mg/dL) (Negative); Urine Ketones Negative (Negative); Urine Nitrite Negative (Negative); Urine Protein Negative (Negative); Urine Specific Gravity 1.025 (1.002-1.030); Urine Urobilinogen Positive (Negative)
[2023-06-12 17:38] LABS: Urine Bacteria 1+ (Absent); Urine Red Blood Cell 3+(>10/hpf) (Absent); Urine Squamous Epithelial Cell Present (Absent); Urine White Blood Cell Trace(0-5/hpf) (Absent)
[2023-06-12] MEDS ORDERED: Gadoxetate (CONTRAST) 181.43 MG/ML 10 ML SDV IV ONE (23:37)
[2023-06-12 23:59] LABS: Calcium 8.1 mg/dL (8.6-10.3); Creatinine, Serum 0.63 mg/dL (0.51-0.95); Magnesium 1.9 mg/dL (1.9-2.7); Potassium 3.6 mmol/L (3.5-5.0); eGFR CKD-EPI 102.8 (>60)
[2023-06-13] MEDS: Heparin 5000 UNITS/ML 1 mL VIAL SUBCUT SCH ×2 (05:55→20:33)
[2023-06-13 06:10] LABS: ABS Lymphocytes 1.5 10^3/uL (1.0-4.8); ABS Monocytes 0.4 10^3/uL (0.0-0.9); ABS Neutrophils 4.1 10^3/uL (1.5-7.6); Eosinophil % 0.2 %; Hematocrit 24.2 % (35-45); Hemoglobin 7.7 g/dL (11.5-14.3); Lymphocyte % 25.2 %; Mean Corpuscular Hemoglobin 24.2 pg (27-33); Mean Corpuscular Hgb Conc 31.7 g/dL (31-36); Mean Corpuscular Volume 76.4 fL (80-97); Mean Platelet Volume 8.1 fL (7.5-11.2); Platelet Count 445 10^3/uL (150-450); Red Blood Count 3.17 10^6/uL (3.63-4.92); Red Cell Distribution Width 17.1 % (12-17); White Blood Count 5.9 10^3/uL (3.8-11.8)
[2023-06-13 06:27] LABS: Creatinine, Serum 0.56 mg/dL (0.51-0.95); eGFR CKD-EPI 105.7 (>60)
[2023-06-13] MEDS: ZOSYN 3.375 GM Q8H per EXTENDED INFUSION IV SCH ×3 (08:41→22:57)
[2023-06-13] MEDS: CMCS:SitaGLIPtin 100 mg TAB (NF) PO SCH (08:45)
[2023-06-13] MEDS: Aspirin EC 81 mg TAB.EC (enteric coated) PO SCH (08:45)
[2023-06-13] MEDS: Nicotine PATCH 14 MG/24 HR PATCH TRANSDERM SCH (08:45)
[2023-06-13] MEDS: DULoxetine DR 60 mg CAP PO SCH ×2 (08:46→19:39)
[2023-06-13] MEDS: Potassium EFFERVES 25 meq TAB PO SCH ×2 (08:46)
[2023-06-13 08:48] LABS: Magnesium 1.9 mg/dL (1.9-2.7)
[2023-06-13 08:58] LABS: INR 1.15 (0.83-1.13)
[2023-06-13] MEDS ORDERED: Magnesium Sulfate IV 1GM/100ML 1 GM/100 ML BAG IV ONE (08:59)
[2023-06-13] MEDS ORDERED: Potassium Chlor 20 meq TAB.ER PO ONE ×2 (09:00→12:47)
[2023-06-13] MEDS ORDERED: fentaNYL 100 mcg/2 ml 50 MCG/ML VIAL ONE (10:29)
[2023-06-13] MEDS: KCL 20 MEQ/100 ML IVPREMIX 20 MEQ/100 ML BAG IV SCH ×2 (12:44→14:46)
[2023-06-13 13:33] LABS: Immunoglobulin A 267 mg/dL (61 - 356); Immunoglobulin G 1270 mg/dL (767 - 1590); Immunoglobulin M 25 mg/dL (37 - 286)
[2023-06-13 14:29] LABS: Immunoglobulin Subclass IgG4 3.9 mg/dL
[2023-06-13] MEDS: Psyllium PAK PO SCH (14:46)
[2023-06-13] MEDS ORDERED: Morphine 2 MG/ML SYRINGE IV ONE (14:47)
[2023-06-13 16:22] LABS: Calcium 7.6 mg/dL (8.6-10.3); Creatinine, Serum 0.53 mg/dL (0.51-0.95); Potassium 3.3 mmol/L (3.5-5.0); eGFR CKD-EPI 107.1 (>60)
[2023-06-14] MEDS: Heparin 5000 UNITS/ML 1 mL VIAL SUBCUT SCH ×3 (06:24→21:13)
[2023-06-14] MEDS: ZOSYN 3.375 GM Q8H per EXTENDED INFUSION IV SCH ×3 (06:25→22:17)
[2023-06-14] MEDS ORDERED: Morphine 2 MG/ML SYRINGE IV ONE ×2 (07:47→10:05)
[2023-06-14 07:52] LABS: Venous Bicarbonate HCO3 31.3 mmol/L (24-28)
[2023-06-14 07:58] LABS: ABS Eosinophils 0.1 10^3/uL (0.0-0.5); ABS Lymphocytes 1.6 10^3/uL (1.0-4.8); ABS Monocytes 0.6 10^3/uL (0.0-0.9); ABS Neutrophils 6.7 10^3/uL (1.5-7.6); Eosinophil % 1.4 %; Hematocrit 24.2 % (35-45); Hemoglobin 7.8 g/dL (11.5-14.3); Lymphocyte % 17.7 %; Mean Corpuscular Hemoglobin 24.8 pg (27-33); Mean Corpuscular Hgb Conc 32.1 g/dL (31-36); Mean Corpuscular Volume 77.2 fL (80-97); Mean Platelet Volume 7.5 fL (7.5-11.2); Platelet Count 447 10^3/uL (150-450); Red Blood Count 3.14 10^6/uL (3.63-4.92); Red Cell Distribution Width 16.8 % (12-17); White Blood Count 9.1 10^3/uL (3.8-11.8)
[2023-06-14 08:11] LABS: INR 1.17 (0.83-1.13)
[2023-06-14] MEDS ORDERED: CALCIUM GLUCONATE 1GM/50ML NS 1 GM/50 ML BAG IV ONE (08:14)
[2023-06-14 08:16] LABS: Magnesium 1.6 mg/dL (1.9-2.7)
[2023-06-14] MEDS ORDERED: Magnesium Sulf 4 GM/100 ML IV 4,000 MG/100 ML BAG IVPB ONE (08:17)
[2023-06-14] MEDS: Nicotine PATCH 14 MG/24 HR PATCH TRANSDERM SCH (08:52)
[2023-06-14] MEDS: Aspirin EC 81 mg TAB.EC (enteric coated) PO SCH (08:52)
[2023-06-14] MEDS: DULoxetine DR 60 mg CAP PO SCH ×2 (08:53→21:12)
[2023-06-14] MEDS: Potassium Chlor 20 meq TAB.ER PO SCH (08:53)
[2023-06-14] MEDS: CMCS:SitaGLIPtin 100 mg TAB (NF) PO SCH (08:53)
[2023-06-14] MEDS: Psyllium PAK PO SCH (08:54)
[2023-06-14] MEDS ORDERED: Potassium Chlor 20 meq TAB.ER PO SCH (09:00)
[2023-06-14 10:41] LABS: Calcium 7.7 mg/dL (8.6-10.3); Creatinine, Serum 0.47 mg/dL (0.51-0.95); Potassium 3.6 mmol/L (3.5-5.0); eGFR CKD-EPI 110.3 (>60)
[2023-06-14] MEDS ORDERED: Morphine 2 MG/ML SYRINGE IV PRN (14:10)
[2023-06-15] MEDS: Heparin 5000 UNITS/ML 1 mL VIAL SUBCUT SCH ×3 (05:55→21:41)
[2023-06-15] MEDS: ZOSYN 3.375 GM Q8H per EXTENDED INFUSION IV SCH ×3 (06:02→23:08)
[2023-06-15 07:49] LABS: ABS Eosinophils 0.2 10^3/uL (0.0-0.5); ABS Lymphocytes 1.9 10^3/uL (1.0-4.8); ABS Monocytes 0.8 10^3/uL (0.0-0.9); ABS Neutrophils 6.2 10^3/uL (1.5-7.6); Eosinophil % 1.7 %; Hematocrit 24.5 % (35-45); Hemoglobin 7.7 g/dL (11.5-14.3); Lymphocyte % 20.4 %; Mean Corpuscular Hemoglobin 24.5 pg (27-33); Mean Corpuscular Hgb Conc 31.3 g/dL (31-36); Mean Corpuscular Volume 78.4 fL (80-97); Platelet Count 448 10^3/uL (150-450); Red Blood Count 3.13 10^6/uL (3.63-4.92); Red Cell Distribution Width 16.9 % (12-17); White Blood Count 9.1 10^3/uL (3.8-11.8)
[2023-06-15 08:46] LABS: Albumin 2.2 g/dL (3.2-5.2); Albumin/Globulin Ratio 0.8 (1-3); Calcium 7.6 mg/dL (8.6-10.3); Creatinine, Serum 0.48 mg/dL (0.51-0.95); Globulin 2.9 g/dL (2-4); Magnesium 1.9 mg/dL (1.9-2.7); Phosphorus 3.7 mg/dL (2.5-5.0); Potassium 3.7 mmol/L (3.5-5.0); Total Bilirubin 0.3 mg/dL (0.2-1.0); Total Protein 5.1 g/dL (6.4-8.9); eGFR CKD-EPI 109.7 (>60)
[2023-06-15] MEDS: DULoxetine DR 60 mg CAP PO SCH ×2 (09:54→21:39)
[2023-06-15] MEDS: Aspirin EC 81 mg TAB.EC (enteric coated) PO SCH (09:54)
[2023-06-15] MEDS: Potassium Chlor 20 meq TAB.ER PO SCH (09:54)
[2023-06-15] MEDS: CMCS:SitaGLIPtin 100 mg TAB (NF) PO SCH (09:54)
[2023-06-15] MEDS: Nicotine PATCH 14 MG/24 HR PATCH TRANSDERM SCH (09:54)
[2023-06-15] MEDS: Psyllium PAK PO SCH (09:55)
[2023-06-16] MEDS ORDERED: Ondansetron 4 mg VIAL 2 MG/ML 2 ml VIAL IV PRN (02:23)
[2023-06-16] MEDS ORDERED: Acetaminophen IV 1 GM/100ML 1,000 MG/100 ML BAG IV PRN (02:42)
[2023-06-16 03:23] LABS: ABS Basophils 0.1 10^3/uL (0.0-0.1); ABS Eosinophils 0.2 10^3/uL (0.0-0.5); ABS Lymphocytes 1.8 10^3/uL (1.0-4.8); ABS Monocytes 0.5 10^3/uL (0.0-0.9); ABS Neutrophils 13.9 10^3/uL (1.5-7.6); Eosinophil % 1.1 %; Hemoglobin 9.4 g/dL (11.5-14.3); Lymphocyte % 11.1 %; Mean Corpuscular Hgb Conc 31.3 g/dL (31-36); Mean Corpuscular Volume 76.9 fL (80-97); Mean Platelet Volume 8.1 fL (7.5-11.2); Platelet Count 677 10^3/uL (150-450); Red Blood Count 3.91 10^6/uL (3.63-4.92); White Blood Count 16.5 10^3/uL (3.8-11.8)
[2023-06-16] MEDS: Heparin 5000 UNITS/ML 1 mL VIAL SUBCUT SCH ×3 (05:53→22:30)
[2023-06-16] MEDS: ZOSYN 3.375 GM Q8H per EXTENDED INFUSION IV SCH ×2 (05:55→15:02)
[2023-06-16 06:09] LABS: ABS Eosinophils 0.2 10^3/uL (0.0-0.5); ABS Lymphocytes 1.1 10^3/uL (1.0-4.8); ABS Monocytes 1.1 10^3/uL (0.0-0.9); ABS Neutrophils 15.1 10^3/uL (1.5-7.6); Eosinophil % 1.1 %; Hemoglobin 8.5 g/dL (11.5-14.3); Lymphocyte % 6.3 %; Mean Corpuscular Hemoglobin 24.1 pg (27-33); Mean Corpuscular Hgb Conc 31.5 g/dL (31-36); Mean Corpuscular Volume 76.7 fL (80-97); Mean Platelet Volume 7.9 fL (7.5-11.2); Platelet Count 524 10^3/uL (150-450); Red Blood Count 3.52 10^6/uL (3.63-4.92); Red Cell Distribution Width 17.1 % (12-17); White Blood Count 17.5 10^3/uL (3.8-11.8)
[2023-06-16 06:24] LABS: Calcium 7.8 mg/dL (8.6-10.3); Creatinine, Serum 0.62 mg/dL (0.51-0.95); Potassium 3.9 mmol/L (3.5-5.0); eGFR CKD-EPI 103.2 (>60)
[2023-06-16] MEDS: Nicotine PATCH 14 MG/24 HR PATCH TRANSDERM SCH (09:24)
[2023-06-16] MEDS: Psyllium PAK PO SCH (09:25)
[2023-06-16] MEDS: Potassium Chlor 20 meq TAB.ER PO SCH (09:27)
[2023-06-16] MEDS: DULoxetine DR 60 mg CAP PO SCH ×2 (09:27→22:29)
[2023-06-16] MEDS: Aspirin EC 81 mg TAB.EC (enteric coated) PO SCH (09:28)
[2023-06-16] MEDS: CMCS:SitaGLIPtin 100 mg TAB (NF) PO SCH (09:28)
[2023-06-16] MEDS ORDERED: PEG 3000 GI LAVAGE 1 GALLON PO ONE (16:25)
[2023-06-17] MEDS: Heparin 5000 UNITS/ML 1 mL VIAL SUBCUT SCH ×3 (04:30→20:06)
[2023-06-17] MEDS: Nicotine PATCH 14 MG/24 HR PATCH TRANSDERM SCH (08:21)
[2023-06-17] MEDS: Potassium Chlor 20 meq TAB.ER PO SCH (08:21)
[2023-06-17] MEDS: CMCS:SitaGLIPtin 100 mg TAB (NF) PO SCH (08:22)
[2023-06-17] MEDS: Aspirin EC 81 mg TAB.EC (enteric coated) PO SCH (08:22)
[2023-06-17] MEDS: DULoxetine DR 60 mg CAP PO SCH ×2 (08:23→19:48)
[2023-06-17] MEDS: Psyllium PAK PO SCH (10:12)
[2023-06-17 10:29] LABS: ABS Eosinophils 0.1 10^3/uL (0.0-0.5); ABS Lymphocytes 1.2 10^3/uL (1.0-4.8); ABS Monocytes 0.8 10^3/uL (0.0-0.9); ABS Neutrophils 7.6 10^3/uL (1.5-7.6); Eosinophil % 1.1 %; Hematocrit 23.3 % (35-45); Hemoglobin 7.4 g/dL (11.5-14.3); Lymphocyte % 12.6 %; Mean Corpuscular Hemoglobin 24.5 pg (27-33); Mean Corpuscular Hgb Conc 31.9 g/dL (31-36); Mean Corpuscular Volume 76.9 fL (80-97); Mean Platelet Volume 7.4 fL (7.5-11.2); Platelet Count 458 10^3/uL (150-450); Red Blood Count 3.03 10^6/uL (3.63-4.92); Red Cell Distribution Width 16.9 % (12-17); White Blood Count 9.8 10^3/uL (3.8-11.8)
[2023-06-17 11:03] LABS: Calcium 7.8 mg/dL (8.6-10.3); Creatinine, Serum 0.5 mg/dL (0.51-0.95); Potassium 3.5 mmol/L (3.5-5.0); eGFR CKD-EPI 108.6 (>60)
[2023-06-17] MEDS ORDERED: fentaNYL 100 mcg/2 ml 50 MCG/ML VIAL ONE (15:26)
[2023-06-17] MEDS ORDERED: Midazolam 10 mg/10 ml VIAL 1 mg/ml 10 ml VIAL (10 mg) ONE (15:26)
[2023-06-17] MEDS ORDERED: Potassium Chlor 20 meq TAB.ER PO ONE ×2 (17:36→21:00)
[2023-06-17 20:27] LABS: Calprotectin 58.9 mcg/g
[2023-06-18] MEDS: Heparin 5000 UNITS/ML 1 mL VIAL SUBCUT SCH (05:06)
[2023-06-18 06:43] LABS: Calcium 7.9 mg/dL (8.6-10.3); Creatinine, Serum 0.57 mg/dL (0.51-0.95); Potassium 3.9 mmol/L (3.5-5.0); eGFR CKD-EPI 105.3 (>60)
[2023-06-18 08:07] LABS: ABS Eosinophils 0.1 10^3/uL (0.0-0.5); ABS Lymphocytes 1.2 10^3/uL (1.0-4.8); ABS Monocytes 0.6 10^3/uL (0.0-0.9); ABS Neutrophils 5.7 10^3/uL (1.5-7.6); Hematocrit 20.6 % (35-45); Hemoglobin 6.4 g/dL (11.5-14.3); Lymphocyte % 15.6 %; Mean Corpuscular Hemoglobin 24.5 pg (27-33); Mean Corpuscular Hgb Conc 31.2 g/dL (31-36); Mean Corpuscular Volume 78.5 fL (80-97); Mean Platelet Volume 8.1 fL (7.5-11.2); Platelet Count 477 10^3/uL (150-450); Red Blood Count 2.62 10^6/uL (3.63-4.92); Red Cell Distribution Width 17.1 % (12-17); White Blood Count 7.6 10^3/uL (3.8-11.8)
[2023-06-18 10:37] LABS: Hematocrit 24.3 % (35-45); Hemoglobin 7.7 g/dL (11.5-14.3)
[2023-06-18] MEDS: DULoxetine DR 60 mg CAP PO SCH ×2 (10:43→21:11)
[2023-06-18] MEDS: Aspirin EC 81 mg TAB.EC (enteric coated) PO SCH (10:43)
[2023-06-18] MEDS: Nicotine PATCH 14 MG/24 HR PATCH TRANSDERM SCH (10:44)
[2023-06-18] MEDS: Psyllium PAK PO SCH (10:44)
[2023-06-18] MEDS: Potassium Chlor 20 meq TAB.ER PO SCH (10:44)
[2023-06-18] MEDS: CMCS:SitaGLIPtin 100 mg TAB (NF) PO SCH (10:45)
[2023-06-18 11:08] LABS: % Iron Saturation 13 % (15-55); .Transferrin 113 mg/dL (203-362); Iron < 20 ug/dL (50-212); Total Iron Binding Capacity 158 mcg/dL (250-450); Unsaturated Iron Binding 138 ug/dL
[2023-06-18 11:26] LABS: Ferritin 96.9 ng/mL (11-307)
[2023-06-18 11:29] LABS: Folate 3.93 ng/mL (5.90-24.80)
[2023-06-18 11:30] LABS: Vitamin B12 439 pg/mL (180-914)
[2023-06-18] MEDS: Ferric Gluconate IV 250 MG in NS 0.9% 250 ml 200 ML IVPB SCH (19:14)
[2023-06-19 06:19] LABS: Hematocrit 22.1 % (35-45); Mean Corpuscular Hemoglobin 24.7 pg (27-33); Mean Corpuscular Hgb Conc 31.9 g/dL (31-36); Mean Corpuscular Volume 77.3 fL (80-97); Mean Platelet Volume 7.9 fL (7.5-11.2); Platelet Count 462 10^3/uL (150-450); Red Blood Count 2.85 10^6/uL (3.63-4.92); White Blood Count 8.5 10^3/uL (3.8-11.8)
[2023-06-19 06:40] LABS: Creatinine, Serum 0.5 mg/dL (0.51-0.95); Magnesium 1.7 mg/dL (1.9-2.7); Potassium 3.6 mmol/L (3.5-5.0); eGFR CKD-EPI 108.6 (>60)
[2023-06-19] MEDS ORDERED: Magnesium Sulfate 2 gm BAG 2 GM/50 ML BAG IVPB ONE ×2 (07:12→09:36)
[2023-06-19] MEDS: Aspirin EC 81 mg TAB.EC (enteric coated) PO SCH (09:02)
[2023-06-19] MEDS: Potassium Chlor 20 meq TAB.ER PO SCH (09:02)
[2023-06-19] MEDS: CMCS:SitaGLIPtin 100 mg TAB (NF) PO SCH (09:02)
[2023-06-19] MEDS: DULoxetine DR 60 mg CAP PO SCH ×2 (09:02→21:23)
[2023-06-19] MEDS: Psyllium PAK PO SCH (09:03)
[2023-06-19] MEDS: Nicotine PATCH 14 MG/24 HR PATCH TRANSDERM SCH (09:03)
[2023-06-19] MEDS: Ferric Gluconate IV 250 MG in NS 0.9% 250 ml 200 ML IVPB SCH (10:46)
[2023-06-19 13:13] LABS: Tissue Transglutaminase IgA Ab <1.2 U/mL
[2023-06-19 14:34] LABS: Hematocrit 24.9 % (35-45); Hemoglobin 7.9 g/dL (11.5-14.3)
[2023-06-19] MEDS ORDERED: HYDROmorphone 0.5 MG/0.5 ML SYRINGE IV PRN (17:53)
[2023-06-19] MEDS ORDERED: Enoxaparin 40 MG/0.4 ML SYR SUBCUT SCH (21:00)
[2023-06-19 22:34] LABS: Immunoglobulin A 269 mg/dL (61 - 356)
[2023-06-20 06:33] LABS: INR 1.24 (0.83-1.13)
[2023-06-20 06:46] LABS: ABS Eosinophils 0.2 10^3/uL (0.0-0.5); ABS Lymphocytes 1.5 10^3/uL (1.0-4.8); ABS Monocytes 1.1 10^3/uL (0.0-0.9); ABS Neutrophils 7.2 10^3/uL (1.5-7.6); Eosinophil % 1.7 %; Hematocrit 23.8 % (35-45); Hemoglobin 7.4 g/dL (11.5-14.3); Lymphocyte % 15.3 %; Mean Corpuscular Hemoglobin 24.2 pg (27-33); Mean Corpuscular Hgb Conc 31.1 g/dL (31-36); Mean Corpuscular Volume 77.9 fL (80-97); Mean Platelet Volume 7.5 fL (7.5-11.2); Platelet Count 450 10^3/uL (150-450); Red Blood Count 3.05 10^6/uL (3.63-4.92); Red Cell Distribution Width 16.9 % (12-17); White Blood Count 10.1 10^3/uL (3.8-11.8)
[2023-06-20 07:01] LABS: Calcium 7.7 mg/dL (8.6-10.3); Creatinine, Serum 0.48 mg/dL (0.51-0.95); Potassium 3.8 mmol/L (3.5-5.0); eGFR CKD-EPI 109.7 (>60)
[2023-06-20 08:16] LABS: Magnesium 1.9 mg/dL (1.9-2.7)
[2023-06-20] MEDS: Ferric Gluconate IV 250 MG in NS 0.9% 250 ml 200 ML IVPB SCH (09:10)
[2023-06-20] MEDS: CMCS:SitaGLIPtin 100 mg TAB (NF) PO SCH (09:20)
[2023-06-20] MEDS: Aspirin EC 81 mg TAB.EC (enteric coated) PO SCH (09:20)
[2023-06-20] MEDS: DULoxetine DR 60 mg CAP PO SCH ×2 (09:20→20:22)
[2023-06-20] MEDS: Potassium Chlor 20 meq TAB.ER PO SCH (09:21)
[2023-06-20] MEDS: Nicotine PATCH 14 MG/24 HR PATCH TRANSDERM SCH (09:21)
[2023-06-20] MEDS: Psyllium PAK PO SCH (09:23)
[2023-06-20] MEDS: HYDROmorphone 1 MG/1 ML SYRINGE IV PRN ×2 (10:21→20:17)
[2023-06-20] MEDS ORDERED: fentaNYL 100 mcg/2 ml 50 MCG/ML VIAL ONE (13:04)
[2023-06-20] MEDS ORDERED: Midazolam 2 mg/2 ml VIAL 1 mg/ml 2 ml VIAL (2 mg) ONE (13:04)
[2023-06-20] MEDS ORDERED: Dexamethasone IV 4 MG/ML VIAL 1 ml VIAL ONE (13:48)
[2023-06-20] MEDS ORDERED: Propofol 10 MG/ML 20 ML BTL ONE (13:48)
[2023-06-20] MEDS ORDERED: Ondansetron 4 mg VIAL 2 MG/ML 2 ml VIAL ONE (13:48)
[2023-06-20] MEDS ORDERED: Lidocaine 2% PF 5 ML VIAL ONE (13:49)
[2023-06-20 16:47] LABS: Complement C3 160 mg/dL (75 - 175)
[2023-06-20 17:03] LABS: Immunoglobulin G 1420 mg/dL (767 - 1590); Immunoglobulin M 21 mg/dL (37 - 286)
[2023-06-20] MEDS ORDERED: Enoxaparin 40 MG/0.4 ML SYR SUBCUT SCH (21:00)
[2023-06-20] MEDS ORDERED: Magnesium Sulfate 2 gm BAG 2 GM/50 ML BAG IVPB ONE (21:03)
[2023-06-21 06:12] LABS: Hematocrit 23.4 % (35-45); Hemoglobin 7.3 g/dL (11.5-14.3); Mean Corpuscular Hemoglobin 24.4 pg (27-33); Mean Corpuscular Hgb Conc 31.3 g/dL (31-36); Mean Corpuscular Volume 78.1 fL (80-97); Mean Platelet Volume 7.8 fL (7.5-11.2); Platelet Count 474 10^3/uL (150-450); Red Cell Distribution Width 16.6 % (12-17); White Blood Count 11.5 10^3/uL (3.8-11.8)
[2023-06-21 06:31] LABS: Calcium 7.8 mg/dL (8.6-10.3); Creatinine, Serum 0.5 mg/dL (0.51-0.95); Magnesium 2.1 mg/dL (1.9-2.7); Potassium 3.5 mmol/L (3.5-5.0); eGFR CKD-EPI 108.6 (>60)
[2023-06-21] MEDS: DULoxetine DR 60 mg CAP PO SCH (09:13)
[2023-06-21] MEDS: Potassium Chlor 20 meq TAB.ER PO SCH (09:14)
[2023-06-21] MEDS: Aspirin EC 81 mg TAB.EC (enteric coated) PO SCH (09:14)
[2023-06-21] MEDS: Nicotine PATCH 14 MG/24 HR PATCH TRANSDERM SCH (09:16)
[2023-06-21] MEDS: Psyllium PAK PO SCH (09:18)
[2023-06-21] MEDS: Ferric Gluconate IV 250 MG in NS 0.9% 250 ml 200 ML IVPB SCH (09:19)
[2023-06-21] MEDS: CMCS:SitaGLIPtin 100 mg TAB (NF) PO SCH (11:56)
[2023-06-21 13:24] LABS: JO-1 Antibody <0.2 U; Ribosomal Antibody <0.2 U
[2023-06-21 13:25] LABS: JO-1 Antibody <0.2 U; RNP Antibody, IgG <0.2 U; SS-A/Ro Antibody <0.2 U; SS-B/La Antibody <0.2 U; Scl 70 Ab, IgG, S <0.2 U; Sm (Smith) IgG Antibody <0.2 U
[2023-06-21 13:50] VITALS: BP 90/57
[2023-06-21 16:10] LABS: Cyclic Citrullinated Pept IgG <15.6 U
[2023-06-24 18:18] LABS: HLA B27 Negative
== END 2023-06-21 16:10 | disposition home or self-care (01) | DRG 356 ==
LOC: EDHOLD 17:31 → ED 17:31 → SUATTDRO 06-12 02:05 → MED 06-12 14:54 → SUATTDRO 06-12 14:55 → MED 06-12 15:50
PROVIDERS: ADMIT Internal Medicine; ATTEND Hospitalist

== ENCOUNTER 2023-08-12 23:18 | Inpatient (IN) ==
[2023-08-12] MEDS ORDERED: Lactated Ringers 1000 ml BAG 1,000 ML IV SCH (23:45)
[2023-08-13 00:31] LABS: Hematocrit 39.4 % (35-45); Hemoglobin 12.7 g/dL (11.5-14.3); Mean Corpuscular Hemoglobin 28.6 pg (27-33); Mean Corpuscular Hgb Conc 32.4 g/dL (31-36); Mean Corpuscular Volume 88.2 fL (80-97); Mean Platelet Volume 8.5 fL (7.5-11.2); Platelet Count 170 10^3/uL (150-450); Red Blood Count 4.46 10^6/uL (3.63-4.92); Red Cell Distribution Width 21.9 % (12-17)
[2023-08-13 00:47] LABS: Albumin/Globulin Ratio 1.4 (1-3); C Reactive Protein 143.66 mg/L (<8.01); Calcium 7.6 mg/dL (8.6-10.3); Creatinine, Serum 1.12 mg/dL (0.51-0.95); Globulin 2.2 g/dL (2-4); Total Bilirubin 0.6 mg/dL (0.2-1.0); Total Protein 5.2 g/dL (6.4-8.9)
[2023-08-13 00:54] LABS: Magnesium 1.3 mg/dL (1.9-2.7)
[2023-08-13 01:35] LABS: Activated Partial Thrombo Time 19.7 seconds (26.0-38.0); INR 1.07 (0.83-1.13)
[2023-08-13] MEDS: Piperacillin/Tazobac 3.375 BAG 3.375 GM/100 ML BAG IV ONE (03:07)
[2023-08-13] MEDS: Iodixanol (CONTRAST) 320 MG/ML 100 ML SDV IV ONE ×2 (04:04→06:01)
[2023-08-13] MEDS: Lactated Ringers 1000 ml BAG 1,000 ML IV ONE ×2 (04:30→10:16)
[2023-08-13 04:35] LABS: High Sensitivity Troponin 1 Hr 16 pg/mL (<15)
[2023-08-13] MEDS: Potassium Chlor 20 meq TAB.ER PO ONE (05:56)
[2023-08-13] MEDS: CALCIUM GLUCONATE 1GM/50ML NS 1 GM/50 ML BAG IV ONE (05:56)
[2023-08-13 06:30] LABS: ABS Lymphocytes 0.1 10^3/uL (1.0-4.8); ABS Monocytes 0.1 10^3/uL (0.0-0.9); ABS Neutrophils 8.7 10^3/uL (1.5-7.6); ABS Nucleated RBC 0.01 10^3/ul; Anisocytosis 2+; Eosinophil % 0.3 %; Lymphocyte % 1.7 %; Nucleated Red Blood Cells % 0.1 %/100WBC (0.0-0.8)
[2023-08-13] MEDS: Magnesium Sulfate 2 gm BAG 2 GM/50 ML BAG IVPB ONE ×2 (07:48→11:43)
[2023-08-13] MEDS: Lactated Ringers 1000 ml BAG 1,000 ML IV SCH (07:49)
[2023-08-13] MEDS ORDERED: Ondansetron 4 mg VIAL 2 MG/ML 2 ml VIAL IV PRN (08:32)
[2023-08-13 09:15] LABS: Urine Appearance Clear; Urine Bacteria Absent /HPF (Absent); Urine Bilirubin Negative (Negative); Urine Blood Negative (Negative); Urine Color Light-Yellow; Urine Glucose 4+ (>=1000 mg/dL) (Negative); Urine Ketones Negative (Negative); Urine Nitrite Negative (Negative); Urine Protein 1+ (>=30 mg/dL) (Negative); Urine Red Blood Cell Trace(0-2/hpf) /HPF (0-Trace); Urine Squamous Epithelial Cell Present /HPF (Absent); Urine Urobilinogen Negative (Negative); Urine White Blood Cell Trace(0-5/hpf) /HPF (0-Trace); Urine pH 5.5 (5.0-8.0)
[2023-08-13] MEDS ORDERED: Dextrose 50% Syringe 50 ml 25 GM/50 ML SYRINGE IV PUSH PRN (09:53)
[2023-08-13] MEDS ORDERED: Zosyn per Pharmacy NOTE FOLLOW UP SCH (10:00)
[2023-08-13] MEDS ORDERED: Vancomycin per Pharmacy 1 EA NOTE FOLLOW UP SCH (10:00)
[2023-08-13] MEDS: Vancomycin 1,000 MG in NS 0.9% 250 ml 250 ML IVPB ONE (10:20)
[2023-08-13] MEDS: Aspirin EC 81 mg TAB.EC (enteric coated) PO SCH (10:33)
[2023-08-13] MEDS: DULoxetine DR 60 mg CAP PO SCH (10:34)
[2023-08-13] MEDS ORDERED: Norepinephrine 4 MG/250mL D5W 4,000 MCG/250 ML BAG IV ONE (11:14)
[2023-08-13] MEDS: Norepinephrine 4 MG/250mL D5W 4,000 MCG/250 ML BAG IV SCH (11:15)
[2023-08-13] MEDS: KCL 20 MEQ/100 ML IVPREMIX 20 MEQ/100 ML BAG IV SCH ×2 (11:33→15:40)
[2023-08-13] MEDS: Nicotine PATCH 21 MG/24 HR PATCH TRANSDERM SCH (12:29)
[2023-08-13] MEDS: Enoxaparin 40 MG/0.4 ML SYR SUBCUT SCH (12:29)
[2023-08-13 12:30] LABS: Calcium 7.9 mg/dL (8.6-10.3); Creatinine, Serum 0.8 mg/dL (0.51-0.95); Magnesium 2.2 mg/dL (1.9-2.7); Potassium 3.7 mmol/L (3.5-5.0); eGFR CKD-EPI 85.4 (>60)
[2023-08-13] MEDS: ZOSYN 3.375 GM x ONE DOSE over 30 miuntes IV (12:46)
[2023-08-13] MEDS: Hydrocortisone INJ 100 MG/2ML 2 ML VIAL IV ONE (12:47)
[2023-08-13] MEDS: ZOSYN 3.375 GM Q8H per EXTENDED INFUSION IV SCH (16:33)
[2023-08-13] MEDS ORDERED: ZOSYN 3.375 GM Q8H per EXTENDED INFUSION IV SCH (17:00)
[2023-08-13] MEDS: Hydrocortisone INJ 100 MG/2ML 2 ML VIAL IV SCH (20:44)
[2023-08-13] MEDS ORDERED: Vancomycin 500 MG in NS 0.9% 250 ML IVPB SCH (22:00)
[2023-08-13] MEDS: Vancomycin 500 MG in NS 0.9% 250 ML IVPB SCH (22:59)
[2023-08-14 04:44] LABS: Hematocrit 30.1 % (35-45); Mean Corpuscular Hemoglobin 28.7 pg (27-33); Mean Corpuscular Hgb Conc 33.3 g/dL (31-36); Mean Corpuscular Volume 86.3 fL (80-97); Mean Platelet Volume 8.7 fL (7.5-11.2); Platelet Count 115 10^3/uL (150-450); Red Blood Count 3.49 10^6/uL (3.63-4.92); Red Cell Distribution Width 22.6 % (12-17); White Blood Count 9.1 10^3/uL (3.8-11.8)
[2023-08-14 04:53] LABS: Calcium 7.7 mg/dL (8.6-10.3); Creatinine, Serum 0.57 mg/dL (0.51-0.95); Potassium 3.5 mmol/L (3.5-5.0); eGFR CKD-EPI 105.3 (>60)
[2023-08-14 05:06] LABS: ABS Basophils 0.1 10^3/uL (0.0-0.1); ABS Lymphocytes 0.2 10^3/uL (1.0-4.8); ABS Monocytes 0.2 10^3/uL (0.0-0.9); ABS Neutrophils 8.7 10^3/uL (1.5-7.6); Eosinophil % 0.1 %
[2023-08-14] MEDS: Potassium Chlor 20 meq TAB.ER PO ONE (08:55)
[2023-08-15 04:39] LABS: Calcium 8.1 mg/dL (8.6-10.3); Creatinine, Serum 0.48 mg/dL (0.51-0.95); Magnesium 1.8 mg/dL (1.9-2.7); Potassium 3.1 mmol/L (3.5-5.0); eGFR CKD-EPI 109.7 (>60)
[2023-08-15 04:43] LABS: Hematocrit 29.5 % (35-45); Hemoglobin 9.8 g/dL (11.5-14.3); Mean Corpuscular Hemoglobin 28.6 pg (27-33); Mean Corpuscular Hgb Conc 33.1 g/dL (31-36); Mean Corpuscular Volume 86.6 fL (80-97); Mean Platelet Volume 9.3 fL (7.5-11.2); Platelet Count 92 10^3/uL (150-450); Red Blood Count 3.41 10^6/uL (3.63-4.92); Red Cell Distribution Width 21.9 % (12-17); White Blood Count 9.3 10^3/uL (3.8-11.8)
[2023-08-15 05:53] LABS: ABS Lymphocytes 0.3 10^3/uL (1.0-4.8); ABS Monocytes 0.1 10^3/uL (0.0-0.9); ABS Neutrophils 8.8 10^3/uL (1.5-7.6); Eosinophil % 0.4 %; Lymphocyte % 2.7 %
[2023-08-15 05:54] LABS: Anisocytosis 1+
[2023-08-15] MEDS: Potassium Chlor 20 meq TAB.ER PO ONE (08:03)
[2023-08-15] MEDS: Magnesium Sulfate 2 gm BAG 2 GM/50 ML BAG IVPB ONE (08:04)
[2023-08-15] MEDS: cefTRIAXone 2 gm/50 mL D5W 2 GM/50 ML BAG IV SCH (10:21)
[2023-08-15] MEDS: Vancomycin Trough Check NOTE FOLLOW UP ONE (11:03)
[2023-08-15] MEDS: Hydrocortisone INJ 100 MG/2ML 2 ML VIAL IV SCH (13:50)
[2023-08-15] MEDS ORDERED: Benzocaine/Menthol LOZ PO PRN (14:52)
[2023-08-15] MEDS: diPHENhydraMINE CREAM 2%(NF) 28 gm TUBE TOPICAL SCH (22:33)
[2023-08-16 08:12] LABS: Hematocrit 30.1 % (35-45); Hemoglobin 9.8 g/dL (11.5-14.3); Mean Corpuscular Hemoglobin 28.1 pg (27-33); Mean Corpuscular Hgb Conc 32.6 g/dL (31-36); Mean Corpuscular Volume 86.1 fL (80-97); Mean Platelet Volume 9.6 fL (7.5-11.2); Platelet Count 72 10^3/uL (150-450); Red Cell Distribution Width 21.8 % (12-17); White Blood Count 6.5 10^3/uL (3.8-11.8)
[2023-08-16 08:26] LABS: Albumin 2.5 g/dL (3.2-5.2); Albumin/Globulin Ratio 1.1 (1-3); Calcium 8.4 mg/dL (8.6-10.3); Creatinine, Serum 0.53 mg/dL (0.51-0.95); Globulin 2.3 g/dL (2-4); Magnesium 1.7 mg/dL (1.9-2.7); Total Bilirubin 0.5 mg/dL (0.2-1.0); Total Protein 4.8 g/dL (6.4-8.9); eGFR CKD-EPI 107.1 (>60)
[2023-08-16 08:57] LABS: ABS Basophils 0.1 10^3/uL (0.0-0.1); ABS Lymphocytes 0.4 10^3/uL (1.0-4.8); ABS Monocytes 0.2 10^3/uL (0.0-0.9); ABS Neutrophils 5.8 10^3/uL (1.5-7.6); Eosinophil % 0.4 %; Lymphocyte % 6.5 %
[2023-08-16] MEDS: Potassium Chlor 20 meq TAB.ER PO ONE ×2 (09:19→17:41)
[2023-08-16] MEDS: Magnesium Sulfate 2 gm BAG 2 GM/50 ML BAG IVPB ONE (09:19)
[2023-08-16] MEDS: KCL 20 MEQ/100 ML IVPREMIX 20 MEQ/100 ML BAG IV SCH (10:22)
[2023-08-16 15:51] LABS: Creatinine, Serum 0.43 mg/dL (0.51-0.95); Potassium 3.6 mmol/L (3.5-5.0); eGFR CKD-EPI 112.7 (>60)
[2023-08-16 15:52] LABS: Calcium 8.2 mg/dL (8.6-10.3); Magnesium 1.8 mg/dL (1.9-2.7)
[2023-08-16] MEDS: Magnesium Sulfate IV 1GM/100ML 1 GM/100 ML BAG IV ONE (17:41)
[2023-08-17 05:54] LABS: ABS Lymphocytes 0.9 10^3/uL (1.0-4.8); ABS Monocytes 0.2 10^3/uL (0.0-0.9); ABS Neutrophils 2.8 10^3/uL (1.5-7.6); ABS Nucleated RBC 0.01 10^3/ul; Eosinophil % 0.1 %; Hematocrit 30.5 % (35-45); Lymphocyte % 23.4 %; Mean Corpuscular Hemoglobin 28.3 pg (27-33); Mean Corpuscular Hgb Conc 32.8 g/dL (31-36); Mean Corpuscular Volume 86.1 fL (80-97); Mean Platelet Volume 9.3 fL (7.5-11.2); Nucleated Red Blood Cells % 0.1 %/100WBC (0.0-0.8); Platelet Count 85 10^3/uL (150-450); Red Blood Count 3.54 10^6/uL (3.63-4.92); Red Cell Distribution Width 21.8 % (12-17); White Blood Count 3.9 10^3/uL (3.8-11.8)
[2023-08-17 06:10] LABS: Calcium 8.2 mg/dL (8.6-10.3); Creatinine, Serum 0.39 mg/dL (0.51-0.95); Magnesium 1.8 mg/dL (1.9-2.7); Potassium 3.7 mmol/L (3.5-5.0); eGFR CKD-EPI 115.4 (>60)
[2023-08-17] MEDS: Potassium Chlor 20 meq TAB.ER PO ONE (08:11)
[2023-08-17] MEDS: Magnesium Sulfate IV 1GM/100ML 1 GM/100 ML BAG IV ONE (08:50)
[2023-08-18 08:59] LABS: Hematocrit 34.5 % (35-45); Hemoglobin 11.4 g/dL (11.5-14.3); Mean Corpuscular Hemoglobin 28.2 pg (27-33); Mean Corpuscular Volume 85.5 fL (80-97); Mean Platelet Volume 9.1 fL (7.5-11.2); Platelet Count 137 10^3/uL (150-450); Red Blood Count 4.04 10^6/uL (3.63-4.92); Red Cell Distribution Width 21.2 % (12-17); White Blood Count 5.8 10^3/uL (3.8-11.8)
[2023-08-18 09:07] LABS: Calcium 8.5 mg/dL (8.6-10.3); Creatinine, Serum 0.44 mg/dL (0.51-0.95); Magnesium 1.6 mg/dL (1.9-2.7); Potassium 2.8 mmol/L (3.5-5.0)
[2023-08-18] MEDS: Magnesium Sulf 4 GM/100 ML IV 4,000 MG/100 ML BAG IVPB ONE (09:39)
[2023-08-18] MEDS: Potassium Chlor 20 meq TAB.ER PO ONE (09:40)
[2023-08-18 09:53] LABS: ABS Lymphocytes 2.4 10^3/uL (1.0-4.8); ABS Monocytes 0.6 10^3/uL (0.0-0.9); ABS Neutrophils 2.7 10^3/uL (1.5-7.6); Eosinophil % 0.4 %; Lymphocyte % 41.9 %; Nucleated Red Blood Cells % 0.1 %/100WBC (0.0-0.8)
[2023-08-18 10:12] VITALS: BP 159/90
== END 2023-08-18 13:07 | disposition home or self-care (01) | DRG 871 ==
LOC: ED 23:18 → EDHOLD 08-13 08:02 → SUATTDRO 08-13 08:02 → ICU 08-13 13:06 → MEDTELE 08-15 17:34
PROVIDERS: ADMIT Hospitalist; ATTEND Internal Medicine

== ENCOUNTER 2024-06-04 17:29 | Inpatient (IN) ==
[2024-06-04] MEDS: Lactated Ringers 1000 ml BAG IV.FLUID IV ONE ×2 (18:54→21:31)
[2024-06-04 19:00] LABS: Hematocrit 22.4 % (35-45); Hemoglobin 7.1 g/dL (11.5-14.3); Red Blood Count 3.12 10^6/uL (3.63-4.92); White Blood Count 10.3 10^3/uL (3.8-11.8)
[2024-06-04 19:01] LABS: INR 1.62 (0.85-1.14)
[2024-06-04 19:18] LABS: High Sens Troponin Baseline 6 pg/mL (<15)
[2024-06-04 19:47] LABS: ALT 5 U/L (7-52); AST 9 U/L (13-39); Albumin 2.8 g/dL (3.2-5.2); Alkaline Phosphatase 254 U/L (35-149); Anion Gap 14 mmol/L (2-16); Blood Urea Nitrogen 5 mg/dL (6-24); C Reactive Protein 343.02 mg/L (<8.01); CO2 Carbon Dioxide 29 mmol/L (22-32); Calcium 8.1 mg/dL (8.6-10.3); Chloride 88 mmol/L (101-111); Creatinine, Serum 0.58 mg/dL (0.51-0.95); Globulin 2.8 g/dL (2-4); Glucose 295 mg/dL (70-100); Lipase < 10 U/L (11.0-82.0); Magnesium 1.6 mg/dL (1.9-2.7); Sodium 131 mmol/L (135-145); Total Bilirubin 0.6 mg/dL (0.2-1.0); Total Protein 5.6 g/dL (6.4-8.9); eGFR CKD-EPI 104.2 (>60)
[2024-06-04 19:57] LABS: ABS Monocytes 0.9 10^3/uL (0.0-0.9); ABS Neutrophils 8.3 10^3/uL (1.5-7.6); ABS Nucleated RBC 0.01 10^3/ul; Eosinophil % 0.3 %; Lymphocyte % 9.9 %; Mean Corpuscular Hemoglobin 22.6 pg (27-33); Mean Corpuscular Hgb Conc 31.5 g/dL (31-36); Mean Corpuscular Volume 71.9 fL (80-97); Mean Platelet Volume 7.8 fL (7.5-11.2); Nucleated Red Blood Cells % 0.1 %/100WBC (0.0-0.8); Platelet Count 557 10^3/uL (150-450); Red Cell Distribution Width 17.9 % (12-17)
[2024-06-04 20:24] LABS: High Sensitivity Troponin 1 Hr 6 pg/mL (<15)
[2024-06-04] MEDS: Ondansetron 4 mg VIAL 2 MG/ML 2 ml VIAL IV ONE ×2 (21:10→23:30)
[2024-06-04] MEDS: Iodixanol 320 (CONTRAST) 100 ML SDV IV ONE (21:30)
[2024-06-04] MEDS: KCL 10 MEQ/50 ML IVPREMIX 10 MEQ/50 ML BAG IV ONE (21:31)
[2024-06-04] MEDS: Potassium Chlor 20 meq TAB.ER PO ONE (21:31)
[2024-06-05] MEDS ORDERED: Dextrose 50% Syringe 50 ml 25 GM/50 ML SYRINGE IV PUSH PRN (00:47)
[2024-06-05 01:05] LABS: % Iron Saturation 10 % (15-55); .Transferrin 141 mg/dL (203-362); Iron < 20 ug/dL (50-212); Total Iron Binding Capacity 197 mcg/dL (250-450); Unsaturated Iron Binding 177 ug/dL
[2024-06-05 01:48] LABS: Ferritin 439.1 ng/mL (11-307)
[2024-06-05 01:50] LABS: GGTP 125 U/L (9-64.0); Immature Retic Fraction 0.39; Phosphorus 3.4 mg/dL (2.5-5.0); Uric Acid 2.4 mg/dL (2.3-6.6)
[2024-06-05 02:03] LABS: RBC Retic Count 3.12 10^6/ul (3.63-4.92)
[2024-06-05 02:04] LABS: Carcinoembryonic Antigen 1.9 ng/mL (0.1-5.0); Corrected Retic Count 0.7 % (0.5-2.2); Hematocrit for Retic CNT 22.4 % (35-45)
[2024-06-05 05:38] LABS: Urine Appearance Clear; Urine Bilirubin Negative (Negative); Urine Blood Negative (Negative); Urine Color Light-Yellow; Urine Glucose Negative (Negative); Urine Ketones Negative (Negative); Urine Nitrite Negative (Negative); Urine Protein Negative (Negative); Urine Specific Gravity 1.022 (1.002-1.030); Urine Urobilinogen 1+ (Negative)
[2024-06-05 05:39] LABS: Hematocrit 21.7 % (35-45); Hemoglobin 6.8 g/dL (11.5-14.3); Mean Corpuscular Hemoglobin 22.8 pg (27-33); Mean Corpuscular Hgb Conc 31.6 g/dL (31-36); Mean Corpuscular Volume 72.3 fL (80-97); Platelet Count 520 10^3/uL (150-450); Red Cell Distribution Width 17.2 % (12-17)
[2024-06-05 06:15] LABS: ALT 4 U/L (7-52); AST 6 U/L (13-39); Albumin 2.5 g/dL (3.2-5.2); Alkaline Phosphatase 204 U/L (35-149); Anion Gap 10 mmol/L (2-16); Blood Urea Nitrogen 4 mg/dL (6-24); CO2 Carbon Dioxide 31 mmol/L (22-32); Calcium 7.8 mg/dL (8.6-10.3); Chloride 90 mmol/L (101-111); Creatinine, Serum 0.61 mg/dL (0.51-0.95); Globulin 2.4 g/dL (2-4); Glucose 238 mg/dL (70-100); Sodium 131 mmol/L (135-145); Total Bilirubin 0.4 mg/dL (0.2-1.0); Total Protein 4.9 g/dL (6.4-8.9); eGFR CKD-EPI 102.9 (>60)
[2024-06-05 07:57] LABS: ABS Lymphocytes 0.9 10^3/uL (1.0-4.8); ABS Monocytes 0.9 10^3/uL (0.0-0.9); ABS Neutrophils 9.1 10^3/uL (1.5-7.6); Eosinophil % 0.4 %; Lymphocyte % 8.4 %; Microcytosis 2+
[2024-06-05] MEDS: Pantoprazole VIAL 40 MG VIAL IV SCH (08:05)
[2024-06-05] MEDS: Enoxaparin 40 MG/0.4 ML SYR SUBCUT SCH (08:06)
[2024-06-05] MEDS: Ondansetron 4 mg VIAL 2 MG/ML 2 ml VIAL IV PRN (13:48)
[2024-06-05] MEDS: Acetaminophen IV 1 GM/100ML 1,000 MG/100 ML BAG IV PRN (13:49)
[2024-06-05 14:55] LABS: % Iron Saturation 11 % (15-55); .Transferrin 125 mg/dL (203-362); Iron < 20 ug/dL (50-212); Total Iron Binding Capacity 175 mcg/dL (250-450); Unsaturated Iron Binding 155 ug/dL
[2024-06-05 15:01] LABS: Hemoglobin 7.7 g/dL (11.5-14.3); Mean Corpuscular Hemoglobin 23.8 pg (27-33); Mean Corpuscular Hgb Conc 32.3 g/dL (31-36); Mean Corpuscular Volume 73.8 fL (80-97); Mean Platelet Volume 7.8 fL (7.5-11.2); Platelet Count 466 10^3/uL (150-450); Red Blood Count 3.25 10^6/uL (3.63-4.92); Red Cell Distribution Width 18.6 % (12-17); White Blood Count 14.5 10^3/uL (3.8-11.8)
[2024-06-05 15:12] LABS: Ferritin 374.7 ng/mL (11-307)
[2024-06-05] MEDS ORDERED: Zosyn per Pharmacy NOTE FOLLOW UP SCH (17:00)
[2024-06-05] MEDS ORDERED: Senna TAB 8.6 mg TAB PO PRN (17:06)
[2024-06-05] MEDS: Lactated Ringers 1000 ml BAG 1,000 ML IV ONE (17:07)
[2024-06-05] MEDS ORDERED: Morphine 2 MG/ML SYRINGE IV PRN (17:14)
[2024-06-05] MEDS: Piperacillin/Tazobac 3.375 BAG 3.375 GM/100 ML BAG IV ONE (19:22)
[2024-06-06] MEDS: ZOSYN 3.375 GM Q8H per EXTENDED INFUSION IV SCH (00:06)
[2024-06-06 06:36] LABS: Platelet Count 446 10^3/uL (150-450)
[2024-06-06 06:37] LABS: INR 1.75 (0.85-1.14)
[2024-06-06 08:09] LABS: Creatinine, Serum 0.56 mg/dL (0.51-0.95); Potassium 2.6 mmol/L (3.5-5.0); eGFR CKD-EPI 105.1 (>60)
[2024-06-06 08:40] LABS: ABS Eosinophils 0.1 10^3/uL (0.0-0.5); ABS Lymphocytes 0.8 10^3/uL (1.0-4.8); Eosinophil % 0.7 %; Hemoglobin 7.7 g/dL (11.5-14.3); Lymphocyte % 7.5 %; Mean Corpuscular Hgb Conc 32.2 g/dL (31-36); Mean Corpuscular Volume 74.5 fL (80-97); Mean Platelet Volume 8.4 fL (7.5-11.2); Platelet Count 438 10^3/uL (150-450); Red Blood Count 3.23 10^6/uL (3.63-4.92); Red Cell Distribution Width 18.5 % (12-17); White Blood Count 10.9 10^3/uL (3.8-11.8)
[2024-06-06] MEDS: Potassium Chlor 20 meq TAB.ER PO ONE (09:52)
[2024-06-06] MEDS: KCL 20 MEQ/100 ML IVPREMIX 20 MEQ/100 ML BAG IV SCH (09:54)
[2024-06-06] MEDS: Polyethylene Glycol 3350 17 GM PACKET PO SCH (10:29)
[2024-06-06 10:51] LABS: Magnesium 1.5 mg/dL (1.9-2.7)
[2024-06-06 13:14] LABS: Glucose Confirmatory 440 mg/dL (70-100)
[2024-06-06] MEDS: HYDROmorphone 1 MG/1 ML SYRINGE IV SLOW PU PRN ×2 (13:26→23:04)
[2024-06-06] MEDS ORDERED: Calcium Carb (TUMS) 500 mg CHEW TAB PO PRN (14:03)
[2024-06-06] MEDS: Insulin GLARGINE 100 un/ml 10 ml VIAL SUBCUT ONE (14:12)
[2024-06-06] MEDS: Magnesium Sulf 4 GM/100 ML IV 4,000 MG/100 ML BAG IVPB ONE (14:25)
[2024-06-06 22:58] LABS: ABS Eosinophils 0.1 10^3/uL (0.0-0.5); ABS Lymphocytes 0.9 10^3/uL (1.0-4.8); ABS Neutrophils 10.3 10^3/uL (1.5-7.6); Eosinophil % 0.6 %; Hematocrit 23.1 % (35-45); Hemoglobin 7.3 g/dL (11.5-14.3); Lymphocyte % 7.4 %; Mean Corpuscular Hemoglobin 23.4 pg (27-33); Mean Corpuscular Hgb Conc 31.3 g/dL (31-36); Mean Corpuscular Volume 74.6 fL (80-97); Mean Platelet Volume 7.8 fL (7.5-11.2); Platelet Count 478 10^3/uL (150-450); Red Cell Distribution Width 18.6 % (12-17); White Blood Count 12.3 10^3/uL (3.8-11.8)
[2024-06-06 23:02] LABS: INR 1.47 (0.85-1.14)
[2024-06-06 23:36] LABS: Albumin 2.4 g/dL (3.2-5.2); Calcium 7.6 mg/dL (8.6-10.3); Creatinine, Serum 0.56 mg/dL (0.51-0.95); Globulin 2.4 g/dL (2-4); Potassium 3.4 mmol/L (3.5-5.0); Total Bilirubin 0.5 mg/dL (0.2-1.0); Total Protein 4.8 g/dL (6.4-8.9); eGFR CKD-EPI 105.1 (>60)
[2024-06-07 00:47] LABS: Urine Appearance Clear; Urine Bilirubin Negative (Negative); Urine Blood Negative (Negative); Urine Color Light-Yellow; Urine Glucose 1+ (>=70 mg/dL) (Negative); Urine Ketones Negative (Negative); Urine Nitrite Negative (Negative); Urine Protein Trace (Negative); Urine Specific Gravity 1.018 (1.002-1.030); Urine Urobilinogen Negative (Negative)
[2024-06-07 06:33] LABS: ABS Eosinophils 0.1 10^3/uL (0.0-0.5); ABS Lymphocytes 0.9 10^3/uL (1.0-4.8); ABS Monocytes 0.9 10^3/uL (0.0-0.9); ABS Neutrophils 8.2 10^3/uL (1.5-7.6); Eosinophil % 0.7 %; Hematocrit 23.5 % (35-45); Hemoglobin 7.4 g/dL (11.5-14.3); Lymphocyte % 9.2 %; Mean Corpuscular Hemoglobin 23.5 pg (27-33); Mean Corpuscular Hgb Conc 31.3 g/dL (31-36); Mean Corpuscular Volume 75.1 fL (80-97); Mean Platelet Volume 8.2 fL (7.5-11.2); Platelet Count 497 10^3/uL (150-450); Red Blood Count 3.13 10^6/uL (3.63-4.92); Red Cell Distribution Width 18.5 % (12-17); White Blood Count 10.1 10^3/uL (3.8-11.8)
[2024-06-07 06:41] LABS: Calcium 7.7 mg/dL (8.6-10.3); Creatinine, Serum 0.63 mg/dL (0.51-0.95); Phosphorus 3.4 mg/dL (2.5-5.0); Potassium 3.4 mmol/L (3.5-5.0); eGFR CKD-EPI 102.1 (>60)
[2024-06-07] MEDS: Insulin GLARGINE 100 un/ml 10 ml VIAL SUBCUT SCH (09:19)
[2024-06-07] MEDS: KCL 20 MEQ/100 ML IVPREMIX 20 MEQ/100 ML BAG IV SCH (09:35)
[2024-06-07] MEDS: Insulin GLARGINE 100 un/ml 10 ml VIAL SUBCUT ONE (12:35)
[2024-06-07] MEDS: Enoxaparin 40 MG/0.4 ML SYR SUBCUT SCH (14:10)
[2024-06-07 15:42] LABS: AFP Tumor Marker 0.9 ng/mL
[2024-06-07] MEDS: Potassium Chlor 20 meq TAB.ER PO ONE (16:53)
[2024-06-08] MEDS: HYDROmorphone 1 MG/1 ML SYRINGE IV PRN (01:55)
[2024-06-08 05:59] LABS: ABS Monocytes 1.3 10^3/uL (0.0-0.9); ABS Neutrophils 9.5 10^3/uL (1.5-7.6); Eosinophil % 0.4 %; Hematocrit 21.2 % (35-45); Hemoglobin 6.6 g/dL (11.5-14.3); Lymphocyte % 8.8 %; Mean Corpuscular Hemoglobin 23.2 pg (27-33); Mean Corpuscular Hgb Conc 31.2 g/dL (31-36); Mean Corpuscular Volume 74.2 fL (80-97); Mean Platelet Volume 7.8 fL (7.5-11.2); Platelet Count 494 10^3/uL (150-450); Red Blood Count 2.86 10^6/uL (3.63-4.92); Red Cell Distribution Width 18.7 % (12-17); White Blood Count 11.8 10^3/uL (3.8-11.8)
[2024-06-08 06:13] LABS: Calcium 7.5 mg/dL (8.6-10.3); Creatinine, Serum 0.42 mg/dL (0.51-0.95); Magnesium 1.5 mg/dL (1.9-2.7); Phosphorus 3.1 mg/dL (2.5-5.0); Potassium 3.5 mmol/L (3.5-5.0); eGFR CKD-EPI 112.6 (>60)
[2024-06-08] MEDS: Insulin GLARGINE 100 un/ml 10 ml VIAL SUBCUT SCH (08:05)
[2024-06-08] MEDS: Magnesium Sulf 4 GM/100 ML IV 4,000 MG/100 ML BAG IVPB ONE (08:09)
[2024-06-08] MEDS: Lactated Ringers 1000 ml BAG 1,000 ML IV SCH (11:51)
[2024-06-08 12:55] LABS: TSH Ultra Thyroid Stim Horm 0.72 mcIU/mL (0.34-5.60)
[2024-06-08 17:04] LABS: Hematocrit 25.8 % (35-45); Hemoglobin 8.1 g/dL (11.5-14.3); Mean Corpuscular Hemoglobin 23.5 pg (27-33); Mean Corpuscular Hgb Conc 31.4 g/dL (31-36); Mean Corpuscular Volume 74.9 fL (80-97); Mean Platelet Volume 7.8 fL (7.5-11.2); Platelet Count 531 10^3/uL (150-450); Red Blood Count 3.44 10^6/uL (3.63-4.92); Red Cell Distribution Width 19.3 % (12-17); White Blood Count 12.4 10^3/uL (3.8-11.8)
[2024-06-08] MEDS ORDERED: ZOSYN 3.375 GM Q8H per EXTENDED INFUSION IV SCH (20:00)
[2024-06-08] MEDS: Potassium Chlor 20 meq TAB.ER PO ONE (21:07)
[2024-06-09 06:32] LABS: ABS Eosinophils 0.1 10^3/uL (0.0-0.5); ABS Lymphocytes 0.8 10^3/uL (1.0-4.8); ABS Monocytes 0.9 10^3/uL (0.0-0.9); ABS Neutrophils 8.1 10^3/uL (1.5-7.6); Eosinophil % 0.6 %; Hematocrit 23.7 % (35-45); Hemoglobin 7.5 g/dL (11.5-14.3); Lymphocyte % 8.4 %; Mean Corpuscular Hemoglobin 23.6 pg (27-33); Mean Corpuscular Hgb Conc 31.6 g/dL (31-36); Mean Corpuscular Volume 74.7 fL (80-97); Mean Platelet Volume 8.2 fL (7.5-11.2); Platelet Count 481 10^3/uL (150-450); Red Blood Count 3.17 10^6/uL (3.63-4.92); Red Cell Distribution Width 18.8 % (12-17)
[2024-06-09 06:41] LABS: Calcium 7.5 mg/dL (8.6-10.3); Creatinine, Serum 0.47 mg/dL (0.51-0.95); Magnesium 1.8 mg/dL (1.9-2.7); Phosphorus 3.1 mg/dL (2.5-5.0); Potassium 3.7 mmol/L (3.5-5.0); eGFR CKD-EPI 109.6 (>60)
[2024-06-09] MEDS: Magnesium Sulf 4 GM/100 ML IV 4,000 MG/100 ML BAG IVPB ONE (09:40)
[2024-06-09] MEDS ORDERED: Lorazepam PYXIS KEY PRN (15:02)
[2024-06-09] MEDS ORDERED: LORazepam 2 mg VIAL 1 ml IV PUSH PRN ×2 (15:02→15:06)
[2024-06-09] MEDS: Ferric Gluconate IV 250 MG in NS 0.9% 250 ml 200 ML IVPB ONE ×2 (20:37→22:14)
[2024-06-10] MEDS: fentaNYL 100 mcg/2 ml 50 MCG/ML VIAL ONE ×2 (03:08)
[2024-06-10 06:16] LABS: ABS Basophils 0.1 10^3/uL (0.0-0.1); ABS Lymphocytes 1.2 10^3/uL (1.0-4.8); ABS Monocytes 1.1 10^3/uL (0.0-0.9); ABS Neutrophils 9.3 10^3/uL (1.5-7.6); Eosinophil % 0.2 %; Hematocrit 23.4 % (35-45); Hemoglobin 7.2 g/dL (11.5-14.3); Lymphocyte % 10.4 %; Mean Corpuscular Hemoglobin 22.7 pg (27-33); Mean Corpuscular Hgb Conc 30.6 g/dL (31-36); Mean Platelet Volume 8.3 fL (7.5-11.2); Platelet Count 493 10^3/uL (150-450); Red Blood Count 3.17 10^6/uL (3.63-4.92); Red Cell Distribution Width 18.8 % (12-17); White Blood Count 11.7 10^3/uL (3.8-11.8)
[2024-06-10 06:23] LABS: Calcium 7.3 mg/dL (8.6-10.3); Creatinine, Serum 0.39 mg/dL (0.51-0.95); Magnesium 1.9 mg/dL (1.9-2.7); Phosphorus 4.6 mg/dL (2.5-5.0); Potassium 3.4 mmol/L (3.5-5.0); eGFR CKD-EPI 114.6 (>60)
[2024-06-10] MEDS: KCL 20 MEQ/100 ML IVPREMIX 20 MEQ/100 ML BAG IV SCH (09:14)
[2024-06-10] MEDS: Potassium Chlor 20 meq TAB.ER PO ONE (11:14)
[2024-06-10] MEDS: Ferric Gluconate IV 250 MG in NS 0.9% 250 ml 200 ML IVPB ONE (11:37)
[2024-06-10] MEDS ORDERED: HYDROmorphone 1 MG/1 ML SYRINGE IV SLOW PU PRN (11:38)
[2024-06-10] MEDS ORDERED: Ferric Gluconate IV 250 MG in NS 0.9% 250 ml 200 ML IVPB ONE (13:00)
[2024-06-10] MEDS: HYDROmorphone 1 MG/1 ML SYRINGE IV SLOW PU PRN (13:37)
[2024-06-10 16:10] LABS: Cytomegalovirus IgG Antibody Positive (Negative)
[2024-06-11 06:14] LABS: Hematocrit 24.5 % (35-45); Hemoglobin 7.6 g/dL (11.5-14.3); Mean Corpuscular Hemoglobin 23.6 pg (27-33); Mean Corpuscular Hgb Conc 31.3 g/dL (31-36); Mean Corpuscular Volume 75.5 fL (80-97); Mean Platelet Volume 8.4 fL (7.5-11.2); Platelet Count 569 10^3/uL (150-450); Red Blood Count 3.24 10^6/uL (3.63-4.92); Red Cell Distribution Width 19.4 % (12-17); White Blood Count 13.1 10^3/uL (3.8-11.8)
[2024-06-11 06:28] LABS: Calcium 7.5 mg/dL (8.6-10.3); Creatinine, Serum 0.53 mg/dL (0.51-0.95); Magnesium 1.4 mg/dL (1.9-2.7); Potassium 4.4 mmol/L (3.5-5.0); eGFR CKD-EPI 106.5 (>60)
[2024-06-11 07:47] LABS: ABS Lymphocytes 1.7 10^3/uL (1.0-4.8); ABS Monocytes 1.8 10^3/uL (0.0-0.9); ABS Neutrophils 9.5 10^3/uL (1.5-7.6); ABS Nucleated RBC 0.01 10^3/ul; Eosinophil % 0.3 %; Lymphocyte % 13.3 %; Nucleated Red Blood Cells % 0.1 %/100WBC (0.0-0.8)
[2024-06-11] MEDS: Magnesium Sulf 4 GM/100 ML IV 4,000 MG/100 ML BAG IVPB ONE (08:24)
[2024-06-11 13:16] LABS: Syphilis IgG Screen Nonreactive
[2024-06-12 07:02] LABS: ABS Lymphocytes 0.6 10^3/uL (1.0-4.8); ABS Monocytes 0.1 10^3/uL (0.0-0.9); ABS Neutrophils 6.6 10^3/uL (1.5-7.6); Hematocrit 25.4 % (35-45); Hemoglobin 8.1 g/dL (11.5-14.3); Lymphocyte % 8.3 %; Mean Corpuscular Hemoglobin 24.1 pg (27-33); Mean Corpuscular Hgb Conc 31.8 g/dL (31-36); Mean Corpuscular Volume 75.8 fL (80-97); Platelet Count 450 10^3/uL (150-450); Red Blood Count 3.36 10^6/uL (3.63-4.92); Red Cell Distribution Width 19.5 % (12-17); White Blood Count 7.4 10^3/uL (3.8-11.8)
[2024-06-12 07:57] LABS: Glucose Confirmatory 438 mg/dL (70-100)
[2024-06-12 08:23] LABS: Calcium 7.8 mg/dL (8.6-10.3); Creatinine, Serum 0.52 mg/dL (0.51-0.95); Magnesium 1.7 mg/dL (1.9-2.7); Phosphorus 5.4 mg/dL (2.5-5.0); Potassium 4.3 mmol/L (3.5-5.0)
[2024-06-12 10:29] LABS: Glucose Confirmatory 465 mg/dL (70-100)
[2024-06-12] MEDS ORDERED: Dextrose 50% Syringe 50 ml 25 GM/50 ML SYRINGE IV PUSH PRN ×2 (11:05→11:24)
[2024-06-12] MEDS ORDERED: Ferric Gluconate IV 250 MG in NS 0.9% 250 ml 200 ML IVPB ONE (15:30)
[2024-06-12] MEDS: Magnesium Sulfate 2 gm BAG 2 GM/50 ML BAG IVPB ONE (17:13)
[2024-06-12] MEDS: Enoxaparin 40 MG/0.4 ML SYR SUBCUT SCH (17:19)
[2024-06-12] MEDS: Magnesium Sulfate IV 1GM/100ML 1 GM/100 ML BAG IV ONE (20:28)
[2024-06-13 07:13] LABS: Hematocrit 24.1 % (35-45); Hemoglobin 7.9 g/dL (11.5-14.3); Mean Corpuscular Hemoglobin 24.6 pg (27-33); Mean Corpuscular Hgb Conc 32.6 g/dL (31-36); Mean Corpuscular Volume 75.7 fL (80-97); Mean Platelet Volume 7.8 fL (7.5-11.2); Platelet Count 512 10^3/uL (150-450); Red Blood Count 3.19 10^6/uL (3.63-4.92); Red Cell Distribution Width 19.5 % (12-17); White Blood Count 10.7 10^3/uL (3.8-11.8)
[2024-06-13 07:44] LABS: Calcium 7.8 mg/dL (8.6-10.3); Creatinine, Serum 0.48 mg/dL (0.51-0.95); Potassium 3.7 mmol/L (3.5-5.0)
[2024-06-13] MEDS: Insulin GLARGINE 100 un/ml 10 ml VIAL SUBCUT SCH (08:44)
[2024-06-13] MEDS: Ferric Gluconate IV 250 MG in NS 0.9% 250 ml 200 ML IVPB ONE (08:57)
[2024-06-13] MEDS: SODIUM CHLORIDE IVPB SCH (09:04)
[2024-06-13] MEDS: FERRIC GLUCONATE IVPB SCH (09:04)
[2024-06-13] MEDS ORDERED: Ferric Gluconate IV 250 MG in NS 0.9% 250 ml 200 ML IVPB ONE (20:54)
[2024-06-14 05:38] LABS: Hematocrit 24.1 % (35-45); Hemoglobin 7.6 g/dL (11.5-14.3); Mean Corpuscular Hgb Conc 31.6 g/dL (31-36); Mean Corpuscular Volume 76.1 fL (80-97); Mean Platelet Volume 7.9 fL (7.5-11.2); Platelet Count 533 10^3/uL (150-450); Red Blood Count 3.17 10^6/uL (3.63-4.92); Red Cell Distribution Width 20.4 % (12-17); White Blood Count 15.6 10^3/uL (3.8-11.8)
[2024-06-14 05:44] LABS: ABS Lymphocytes 1.1 10^3/uL (1.0-4.8); ABS Monocytes 1.9 10^3/uL (0.0-0.9); ABS Neutrophils 12.5 10^3/uL (1.5-7.6); Eosinophil % 0.2 %; Lymphocyte % 7.2 %
[2024-06-14 05:59] LABS: Creatinine, Serum 0.66 mg/dL (0.51-0.95); Magnesium 1.3 mg/dL (1.9-2.7); Phosphorus 3.8 mg/dL (2.5-5.0); Potassium 3.8 mmol/L (3.5-5.0)
[2024-06-14] MEDS: Magnesium Sulf 4 GM/100 ML IV 4,000 MG/100 ML BAG IVPB ONE (08:36)
[2024-06-14 10:20] LABS: Immunoglobulin G 639 mg/dL (767 - 1590); Immunoglobulin M 10 mg/dL (37 - 286)
[2024-06-14 13:38] LABS: Immunoglobulin E 3.5 kU/L (<= 214)
[2024-06-14] MEDS: Lidocaine PATCH 5% PATCH TRANSDERM SCH (14:25)
[2024-06-15 05:59] LABS: ABS Lymphocytes 1.1 10^3/uL (1.0-4.8); ABS Monocytes 1.2 10^3/uL (0.0-0.9); ABS Neutrophils 10.3 10^3/uL (1.5-7.6); Eosinophil % 0.1 %; Hemoglobin 7.1 g/dL (11.5-14.3); Mean Corpuscular Hemoglobin 23.5 pg (27-33); Mean Corpuscular Hgb Conc 31.1 g/dL (31-36); Mean Corpuscular Volume 75.8 fL (80-97); Mean Platelet Volume 7.8 fL (7.5-11.2); Platelet Count 532 10^3/uL (150-450); Red Blood Count 3.03 10^6/uL (3.63-4.92); Red Cell Distribution Width 20.9 % (12-17); White Blood Count 12.7 10^3/uL (3.8-11.8)
[2024-06-15 06:36] LABS: Creatinine, Serum 0.54 mg/dL (0.51-0.95); Magnesium 1.9 mg/dL (1.9-2.7); Potassium 3.6 mmol/L (3.5-5.0)
[2024-06-15 09:49] VITALS: BP 112/54
[2024-06-15] MEDS: FERRIC GLUCONATE IVPB SCH (15:20)
[2024-06-15] MEDS: SODIUM CHLORIDE IVPB SCH (15:20)
[2024-06-18 16:02] LABS: Case Number CR-24-77697
[2024-06-20 15:06] LABS: TB1 Ag minus Nil Result -0.18 IU/mL; TB2 Ag minus Nil Result -0.18 IU/mL
[2024-06-20 15:10] LABS: QuantiferonTb Gold Plus Result Negative (Negative)
== END 2024-06-15 15:15 | disposition home or self-care (01) | DRG 441 ==
LOC: ED 17:29 → EDHOLD 17:29 → SUATTDRO 23:25 → MED 06-05 12:14 → SUATTDRO 06-07 14:52
PROVIDERS: ADMIT Internal Medicine; ATTEND Internal Medicine